=== PATIENT | female | born 1960 | race Caucasian/White ===

== ENCOUNTER → 2018-06-24 13:29 | Outpatient (CLI) | payer MEDICARE, MEDICAID, SELFPAY ==
[2018-06-24 14:44] LABS: INR 2.6 (1.0-3.5); Prothrombin Time 24.5 sec (9.3-10.8)
== END ==
PROVIDERS: Nurse Practitioner Gerontology; PCP Family Medicine; Visit Provider Family Medicine
DX: I26.99 Other pulmonary embolism without acute cor pulmonale (principal); Z79.01 Long term (current) use of anticoagulants
CPT/HCPCS: 36415; 85610

== ENCOUNTER 2018-07-25 13:48 | Outpatient (CLI) | payer MEDICARE, MEDICAID, SELFPAY ==
[2018-07-25 14:31] LABS: INR 2.8 (1.0-3.5); Prothrombin Time 26.4 sec (9.3-10.8)
== END 2018-07-25 14:08 ==
PROVIDERS: PCP Family Medicine; Visit Provider Family Medicine
DX: I26.99 Other pulmonary embolism without acute cor pulmonale (principal); Z79.01 Long term (current) use of anticoagulants
CPT/HCPCS: 36415; 85610

== ENCOUNTER 2018-08-21 12:42 | Outpatient (REF) | payer MEDICARE, MEDICAID, SELFPAY ==
--- NOTE | 2018-08-21 10:55 | PAPFT_PTH ---
PATIENT: Julia Barron LOC: [facility] U#:[id number] AGE/SX: 57/F ROOM: RE08/21/[address]: Joaquin Kenney MD : 1960 BED: DIS: 08/21/2018 SPEC #: [id number] RECD: 08/21/18 12:57 STATUS: YASMEEN REQ #: [id number] PERRI: 08/21/18 10:[address]: Joaquin Kenney DEPT: [facility] Cytology RECD BY: Nelida Encinas Tissues: 1 - CX/ENDOCX FOR PAP SMEARS Procedures: PAP THIN PREP/UVM Screening Comments: [id number]
[2018-08-21 13:22] LABS: Bilirubin Negative (Negative); Blood Trace-intact (Negative); Clarity Clear; Glucose Negative (Negative); Ketones Negative (Negative); Leukocyte Esterase Negative (Negative); Nitrite Negative (Negative); Urobilinogen 0.2 EU/dL (Up TO 0.2); pH 6.5 (5-8)
[2018-08-21 13:33] LABS: Epithelial Cells Rare HPF (Negative); WBC 0-2 HPF (0-5)
[2018-08-21 13:34] LABS: Bacteria Negative HPF (Negative); C & S Indicated? No; Casts Negative LPF (Negative); Crystals Negative HPF (Negative); Mucus Negative (Negative)
== END 2018-08-21 13:02 ==
LOC: LBN 12:42
PROVIDERS: PCP Family Medicine; Visit Provider Family Medicine
DX: Z87.448 Personal history of other diseases of urinary system (principal); N89.8 Other specified noninflammatory disorders of vagina; Z12.4 Encounter for screening for malignant neoplasm of cervix
CPT/HCPCS: 88142; 81003; 81015; 87480; 87510; 87660

== ENCOUNTER 2018-08-22 08:12 | Outpatient (CLI) | payer MEDICARE, MEDICAID, SELFPAY ==
[2018-08-22 08:39] LABS: Absolute Basophil Count 0.03 k/cumm (0.0-0.2); Absolute Eosinophil Count 0.08 k/cumm (0.0-0.7); Absolute Lymphocyte Count 0.96 k/cumm (1.2-3.4); Absolute Monocyte Count 0.38 k/cumm (0.11-0.7); Absolute Neutrophil Count 4.27 k/cumm (1.2-6.7); Basophils % 0.5; Eosinophils % 1.4; HCT 37.7 % (36.0-46.0); HGB 12.5 g/dL (12.0-15.5); Lymphocytes % 16.8; Mean Corp. HGB Concentration 33.2 g/dL (32.0-36.0); Mean Corpuscular Hemoglobin 29.8 pg (27.0-33.0); Mean Platelet Volume 9.3 fL (8.0-11.0); Monocytes % 6.6; Neutrophils % 74.7; Platelet Count 234 x1000/uL (130-400); RBC 4.19 m/cumm (4.00-5.20); RBC Distribution Width 14.1 % (11.7-14.6); White Blood Cell Count 5.72 k/cumm (4.4-10.8)
[2018-08-22 09:02] LABS: INR 1.9 (1.0-3.5); Prothrombin Time 18.3 sec (9.3-10.8)
[2018-08-22 09:44] LABS: ALT 24 U/L (12-78); AST 13 U/L (15-37); Albumin 3.2 g/dL (3.4-5.0); Alkaline Phosphatase 94 U/L (46-116); Anion Gap 8.7 mmol/L (3-11); BUN 13 mg/dL (7-18); Bilirubin, Total 0.3 mg/dL (0.2-1.0); CO2 27.3 mmol/L (21.0-32.0); CREATININE 0.88 mg/dL (0.55-1.02); Calcium 8.3 mg/dL (8.5-10.1); Chloride 106 mmol/L (98-107); Glucose 96 mg/dL (70-100); Potassium 3.8 mmol/L (3.5-5.1); Sodium 142 mmol/L (136-145); TSH 2.97 uIU/mL (0.358-3.74); Total Protein 6.2 g/dL (6.4-8.2)
[2018-08-23 11:10] LABS: HIV-1/2 Ag & Ab Screen Negative (NEGAT)
== END 2018-08-22 08:32 ==
PROVIDERS: PCP Family Medicine; Visit Provider Family Medicine
DX: G25.0 Essential tremor; I26.99 Other pulmonary embolism without acute cor pulmonale; Z79.01 Long term (current) use of anticoagulants; I10 Essential (primary) hypertension; Z91.038 Other insect allergy status; Z20.6 Contact with and (suspected) exposure to human immunodeficiency virus [HIV]
CPT/HCPCS: 36415; 80053; 87389; 84443; 85025; 85610

== ENCOUNTER 2018-09-23 12:16 | Emergency (ER) | payer MEDICARE, MEDICAID, SELFPAY ==
[2018-09-23] VITALS (22 sets, daily range): BP systolic 121–148; BP diastolic 80–98; PULSE 64–79; RESP 13–18; TEMP 36.4; O2SAT 97–100
--- NOTE | 2018-09-23 13:59 | DI.CT_ITS ---
SYMPTOM/DIAGNOSIS: CHEST PAIN CT CHEST: CT angiography was performed with multi slice acquisition and multi planar and 3D reconstruction. CT scan of the chest was performed according to the pulmonary embolus protocol. FINDINGS: There is no evidence of a pulmonary embolus. The thoracic aorta is intact. No evidence of aneurysm or dissection of the thoracic aorta is noted. Heart size is within normal limits. No significant pericardial effusion is seen. No findings to suggest right ventricular dysfunction are present. No significant mediastinal adenopathy, pleural effusion or pneumothorax is identified. No focal consolidating infiltrates are seen in the lungs. Emphysematous changes are present. There is again seen a cyst in the liver which appears stable compared to the CT scan of the abdomen and pelvis from 03/15/10. The bones are intact. IMPRESSION: No acute pulmonary process. No evidence of a pulmonary embolus, thoracic or aortic dissection or aneurysm. The findings were discussed with the Emergency Department on the date of the examination.
[2018-09-23 14:14] LABS: Abs Immature Grans 0.01 k/cumm (0.0-0.09); Absolute Basophil Count 0.03 k/cumm (0.0-0.2); Absolute Eosinophil Count 0.14 k/cumm (0.0-0.7); Absolute Lymphocyte Count 1.25 k/cumm (1.2-3.4); Absolute Neutrophil Count 3.07 k/cumm (1.2-6.7); Basophils % 0.6; Eosinophils % 2.9; HCT 41.3 % (36.0-46.0); HGB 13.7 g/dL (12.0-15.5); Immature Grans % 0.2; Mean Corp. HGB Concentration 33.2 g/dL (32.0-36.0); Mean Corpuscular Hemoglobin 29.9 pg (27.0-33.0); Mean Corpuscular Volume 90.2 fL (80-95); Mean Platelet Volume 9.8 fL (8.0-11.0); Monocytes % 6.3; Platelet Count 279 x1000/uL (130-400); RBC 4.58 m/cumm (4.00-5.20); RBC Distribution Width 14.1 % (11.7-14.6)
[2018-09-23 14:33] LABS: INR 1.9 (1.0-3.5); PTT Activated 35.3 sec (21.0-31.4); Prothrombin Time 18.3 sec (9.3-10.8)
[2018-09-23 14:39] LABS: ALT 24 U/L (12-78); AST 16 U/L (15-37); Albumin 3.5 g/dL (3.4-5.0); Alkaline Phosphatase 86 U/L (46-116); BUN 12 mg/dL (7-18); Bilirubin, Total 0.4 mg/dL (0.2-1.0); CREATININE 0.79 mg/dL (0.55-1.02); Calcium 8.7 mg/dL (8.5-10.1); Chloride 103 mmol/L (98-107); Glucose 96 mg/dL (70-100); NT-proBNP 425 pg/mL; Potassium 3.2 mmol/L (3.5-5.1); Sodium 141 mmol/L (136-145); Total Protein 7.2 g/dL (6.4-8.2)
[2018-09-23 14:46] LABS: Troponin I < 0.02 ng/mL (0.00-0.06)
[2018-09-23] MEDS: Omnipaque 350 MG/ML 100 ML BTL IJ (15:17)
--- NOTE | 2018-09-23 16:13 | ED.GENADUL_ITS ---
Discharge Plan Disposition Patient Disposition: HOME Condition: Stable Discharge Details Chief Complaint: Chest Pain Clinical Impression: Chest pain Primary Care Provider: Joaquin Kenney ED Provider: Nitesh Bueno Home Meds and New Rx's Prescriptions: Continue sildenafil 25 mg tablet 25 mg PO TID RF: 0 Ca cmb no.1-vit [id number]-[id number]-B12 [Vitamin D3 (calcium cit-phos)] 1 EACH tablet 1 tab PO DAILY RF: 0 albuterol sulfate [ProAir HFA] 8.5 GM HFA aerosol inhaler 2 puff Inhalation Q4H PRN Qty: 3 RF: 4 levocetirizine 5 MG tablet 5 mg PO DAILY Qty: 30 RF: 11 cyclobenzaprine 5 MG tablet 5 mg PO BID PRNQty: 30 RF: 0 letrozole [Femara] 2.5 MG tablet 2.5 mg PO DAILY RF: 0 fexofenadine [Allergy Relief (fexofenadine)] 60 MG tablet 60 mg PO DAILY RF: 0 propranolol 10 MG tablet 10 mg PO BID Qty: 180 RF: 3 simvastatin [Zocor] 20 MG tablet 20 mg PO HS Qty: 90 RF: 4 cyanocobalamin (vitamin B-12) 1,000 MCG/1 ML solution 1 ml IM Q 3WEEK Qty: 1 RF: 4 fluticasone [Flovent HFA] 12 GM HFA aerosol inhaler 2 puff Inhalation BID Qty: 3 RF: 4 levothyroxine 50 MCG tablet 50 mcg PO DAILY Qty: 90 RF: 4 syringe with needle [Easy Touch] 1 EACH syringe 1 syringe IM Q3WK Qty: 20 RF: 0 nicotine (polacrilex) 4 MG lozenge 4 mg PO q2-4 hour Qty: 1 RF: 2 epinephrine 0.3 MG/0.3 ML auto-injector 0.3 mg IM ONCE PRN 1 Days Qty: 2 RF: 3 warfarin 2.5 MG tablet PO DIRECTED Qty: 180 RF: 4 esomeprazole magnesium 40 MG capsule,delayed release(DR/EC) 40 mg PO DAILY Qty: 90 RF: 3 lisinopril 10 MG tablet 10 mg PO DAILY Qty: 90 RF: 3 duloxetine [Cymbalta] 60 mg capsule,delayed release(DR/EC) 60 mg PO DAILY Qty: 90 RF: 4 trazodone 100 mg tablet 50 - 100 mg PO HS Qty: 90 RF: 4 loratadine 10 mg Tablet 10 mg PO DAILY PRNRF: 0 Discharge Instructions Instructions: Chest Pain (ED) Additional Instructions: You should take your warfarin 7.5 mg on Sunday and and otherwise 5 mg daily on all the other days of the week. You should follow-up with your primary care provider for reassessment in 1 week. Feel free to return to the emergency department for any new or significant worsening of your symptoms. Referrals: Joaquin Kenney [Primary Care Provider] - 1 week (Call the office tomorrow for arrangement of your follow-up appointment) Discharge Data Discharge Date/Time-TO BE ENTERED AT DEPARTURE: 09/23/18 16:27 Medical Decision Making Patient presenting to the emergency department for chief complaint of chest pain. Patient states this happened on Sunday while she was at a nail salon with her family. She states that she was not performing any activity and had sudden sharp chest pain that lasted approximately 5 minutes. Evening before patient does state that she felt some palpitations. Patient reports that this was similar in nature to when she had a PE in the past. Patient denies any fever chills, current shortness of breath, and states that she is asymptomatic and has no pain or discomfort at this time and has not had any since the small incident 2 days ago. Physical exam is unremarkable. Given patient's history plan on doing EKG, labs including troponin, and CT scan of the chest given patient's significant history. The patient is asymptomatic I do not feel that any other interventions are needed emergently at this time but will continue to monitor. After review of labs show negative troponin, mildly elevated BNP, and are otherwise nondiagnostic and CT imaging showing no PE patient was reassessed. Patient has no lower extremity edema or tachycardia. Patient remains asymptomatic and has had no new or worsening symptoms. Patient was encouraged to follow-up with her primary care provider in the next couple days for reassessment otherwise I feel that this was atypical chest pain. Of notation was that patient's INR was 1.9 while on warfarin so I did call and speak with her primary care provider in regards to subtherapeutic INR while on warfarin and patient's other symptoms. He recommended that she increase her warfarin to 7.5 2 times weekly otherwise 5 mg on the other days. Patient to have follow -up appointment with their office in 1 week for reassessment. Patient was encouraged to return to the emergency department for any new or significant worsening of symptoms. After discussion of diagnosis and plan of care patient has no further needs, questions, or concerns and states clear understanding to return to the emergency department for any worsening symptoms. HPI General Mode of arrival: ambulatory . Date/Time Provider Initiated Documentation: 09/23/18 13:15 . Limitations to Documentation: no limitations . Information obtained by: patient and RN notes reviewed . History of Present Illness 58 year old F presents to the emergency department with the chief complaint of Chest pain, described as moderate, Quality is described as sharp, and is localized to the chest. Patient started experiencing this day(s) (2) and it has been intermittent and now resolved. No relieving factors improve symptom(s ), No exacerbating factors reported . Patient notes no other symptoms.. Patient did receive the following treatments prior to arrival, none Related Data Home Medications Medication Instructions Recorded Confirmed Ca cmb no.1-vit [id number]-B12 1 tab PO DAILY 03/05/13 09/23/18 [Vitamin D3 (calcium cit-phos)] albuterol sulfate [ProAir HFA] 2 puff INHALATION Q4H PRN #3 02/18/16 09/23/18 inhaler levocetirizine 5 mg PO DAILY #30 tab-cap 03/27/16 09/23/18 cyclobenzaprine 5 mg PO BID PRN #30 tab-cap 06/28/16 09/23/18 letrozole [Femara] 2.5 mg PO DAILY tab-cap 11/17/16 09/23/18 fexofenadine [Allergy Relief 60 mg PO DAILY 01/02/17 09/23/18 (fexofenadine)] cyanocobalamin (vitamin B-12) 1 ml IM Q 3WEEK #1 vial 08/09/17 08/21/18 fluticasone [Flovent HFA] 2 puff INHALATION BID #3 inhaler 08/09/17 09/23/18 propranolol 10 mg PO BID #180 tab-cap 08/09/17 09/23/18 simvastatin [Zocor] 20 mg PO HS #90 tab-cap 08/09/17 09/23/18 levothyroxine 50 mcg PO DAILY #90 tab-cap 08/16/17 09/23/18 syringe with needle [Easy Touch] #20 syringe 01/14/18 08/21/18 nicotine (polacrilex) 4 mg PO q2-4 hour #1 box 02/24/18 08/21/18 epinephrine 0.3 mg IM ONCE PRN 1 Days #2 pen 04/11/18 09/23/18 warfarin 0 PO DIRECTED #180 tab-cap 04/29/18 08/21/18 esomeprazole magnesium 40 mg PO DAILY #90 cap 06/28/18 09/23/18 lisinopril 10 mg PO DAILY #90 tab-cap 06/28/18 09/23/18 sildenafil 25 mg tablet 25 mg PO TID 08/21/18 08/21/18 duloxetine 60 mg capsule,delayed 60 mg PO DAILY #90 tab-cap 08/30/18 09/23/18 release trazodone 100 mg tablet 50 - 100 mg PO HS #90 tab-cap 08/30/18 09/23/18 loratadine 10 mg PO DAILY PRN 09/23/18 09/23/18 Previous Rx's Medication Instructions Recorded cyanocobalamin (vitamin B-12) 1 ml IM Q 3WEEK #1 vial 08/09/17 fluticasone [Flovent HFA] 2 puff INHALATION BID #3 inhaler 08/09/17 propranolol 10 mg PO BID #180 tab-cap 08/09/17 simvastatin [Zocor] 20 mg PO HS #90 tab-cap 08/09/17 levothyroxine 50 mcg PO DAILY #90 tab-cap 08/16/17 syringe with needle [Easy Touch] #20 syringe 01/14/18 nicotine (polacrilex) 4 mg PO q2-4 hour #1 box 02/24/18 epinephrine 0.3 mg IM ONCE PRN 1 Days #2 pen 04/11/18 esomeprazole magnesium 40 mg PO DAILY #90 cap 06/28/18 lisinopril 10 mg PO DAILY #90 tab-cap 06/28/18 duloxetine 60 mg capsule,delayed 60 mg PO DAILY #90 tab-cap 08/30/18 release trazodone 100 mg tablet 50 - 100 mg PO HS #90 tab-cap 08/30/18 Allergies Allergy/AdvReac Type Severity Reaction Status Date / Time nicotine Allergy Severe ITCHING Unverified 11/12/18 12:23 celecoxib Allergy Intermediate FACIAL Unverified 09/23/18 12:23 SWELLING NSAIDS (Non-Steroidal Allergy Intermediate FACIAL Unverified 09/23/18 12:23 Anti-Inflamma SWELLING calcium carbonate Allergy Unknown ITCHING Unverified 09/23/18 12:23 cholecalciferol (vitamin D3) Allergy Unknown ITCHING Unverified 09/23/18 12:23 folic acid Allergy Unknown ITCHING Unverified 09/23/18 12:23 pyridoxine Allergy Unknown ITCHING Unverified 09/23/18 12:23 Sulfa (Sulfonamide Allergy Unknown Unverified 09/23/18 12:23 Antibiotics) tramadol Allergy Unknown Unverified 09/23/18 12:23 amoxicillin trihydrate AdvReac Intermediate Diarrhea Unverified 09/23/18 12:23 [From Augmentin] and stomach pain potassium clavulanate AdvReac Intermediate Diarrhea Unverified 09/23/18 12:23 [From Augmentin] and stomach pain hydrocodone AdvReac Unknown Unverified 09/23/18 12:23 varenicline tartrate AdvReac Unknown Unverified 09/23/18 12:23 [From Chantix] WHITE FACED HORNET Allergy Unknown Uncoded 09/23/18 12:23 General Stated Complaint: Chest Pain YAMEL: 2 Review of Systems Constitutional Denies chills, Denies fever(s) and Denies malaise Cardiovascular Reports as per HPI, Reports chest pain, Denies chest pain with activity, Denies syncope, Denies irregular heart rhythm, Reports palpitations and Denies dyspnea Respiratory Denies dyspnea Gastrointestinal Denies abdominal pain, Denies nausea and Denies vomiting Neurologic Denies syncope Psychiatric Denies anxiety Endocrine Reports palpitations [facility] Family History Mother Heart disease Hyperlipidemia Neoplasm Cerebrovascular accident Father Depression Heart disease Myocardial infarction Sister Neoplasm Brother Drug abuse Depression Grandfather No problems noted. Grandfather No problems noted. Grandmother No problems noted. Grandmother No problems noted. Brother No problems noted. Brother No problems noted. Sister No problems noted. Sister Primary fibromyalgia syndrome Sister Depression Neoplasm Son No problems noted. Daughter No problems noted. Daughter Depression Daughter Depression Social History household members: none current occupational status: disabled pets and animals: No frequency: 3-4 times per week duration: 15-30 minutes/day Smoking/Tobacco Use Status: Current every day tobacco type: cigarettes alcohol intake: never substance use type: does not use sue/restoration: No preference special sue needs: No Surgical History Abdominal hysterectomy Cervical Procedure LEFT HEART CARDIAC CATH (~2008) Oophrectomy, Right PULMONARY PROCEDURES SURGICAL PROCEDURE (01/22/17) Exam Const General: cooperative, healthy appearing, comfortable, no acute distress, not diaphoretic and not ill appearing Nutritional Appearance: average body habitus Orientation: alert, awake and oriented x3 Limitations: mental status not altered Neck Neck: normal visual inspection, full ROM, trachea midline, supple and no anterior neck swelling Thyroid: thyroid normal Carotids: normal carotid upstroke and no bruits Chest Chest: normal inspection of the chest Resp Effort & Inspection: normal respiratory effort and able to speak in complete sentences Auscultation: clear to auscultation bilaterally Cardio Jugular venous pressure: no JVD Palpation: normal PMI Rate: regular rate Rhythm: regular rhythm Heart Sounds: S1 normal, S2 normal, no click, no gallops, no murmurs and no rubs Bruits: no abdominal aortic bruits and no carotid bruits Pulses: radial pulses present bilaterally 2+ GI Inspection: normal to inspection Palpation: soft, no aortic enlargement, no pulsatile masses and nontender Auscultation: normal bowel sounds Skin General skin exam: no rashes or lesions noted Neuro General: alert, awake, oriented x3, tone normal and moves all extremities Course Vital Signs Temperature 36.4 C L 09/23/18 12:20 Pulse 79 09/23/18 12:20 Respiratory Rate 18 09/23/18 12:20 Blood Pressure 148/96 H 09/23/18 12:20 Pulse Oximetry 100 09/23/18 12:20 Temperature 36.4 C L 09/23/18 12:20 Temperature Source Temporal Artery Scan 09/23/18 12:20 Pulse 70 09/23/18 13:46 Pulse 70 09/23/18 13:46 Respiratory Rate 16 09/23/18 13:46 Respiratory Effort Non-Labored 09/23/18 12:50 Respiratory Depth Normal 09/23/18 12:50 Respiratory Pattern Normal 09/23/18 12:50 Blood Pressure 122/85 09/23/18 13:46 Blood Pressure Mean 93 09/23/18 13:46 Blood Pressure Position Sitting 09/23/18 12:20 Pulse Oximetry 98 09/23/18 13:46 Oxygen Delivery Method Room Air 09/23/18 12:20 Oxygen Flow Rate 0 09/23/18 12:20 Pain Level 0 09/23/18 12:50 Lab/Test Results Lab/Test Results: Laboratory Tests Range/Units 09/23/18 09/23/18 09/23/18 12:35 12:35 12:35 WBC (4.4-10.8) k/cumm 4.80 RBC (4.00-5.20) m/cumm 4.58 Hgb (12.0-15.5) g/dL 13.7 Hct (36.0-46.0) % 41.3 MCV (80-95) fL 90.2 MCH (27.0-33.0) pg 29.9 MCHC (32.0-36.0) g/dL 33.2 RDW (11.7-14.6) % 14.1 Plt Count (130-400) x1000/uL 279 MPV (8.0-11.0) fL 9.8 Immature Gran % 0.2 Neutrophils % 64.0 Lymphocytes % 26.0 Monocytes % 6.3 Eosinophils % 2.9 Basophils % 0.6 Absolute Neutrophils (1.2-6.7) k/cumm 3.07 Absolute Lymphocytes (1.2-3.4) k/cumm 1.25 Absolute Monocytes (0.11-0.7) k/cumm 0.30 Absolute Eosinophils (0.0-0.7) k/cumm 0.14 Absolute Basophils (0.0-0.2) k/cumm 0.03 PT (9.3-10.8) sec 18.3 H INR (1.0-3.5) 1.9 APTT (21.0-31.4) sec 35.3 H Sodium (136-145) mmol/L 141 Potassium (3.5-5.1) mmol/L 3.2 L Chloride (98-107) mmol/L 103 Carbon Dioxide (21.0-32.0) mmol/L 29.0 Anion Gap (3-11) mmol/L 9.0 BUN (7-18) mg/dL 12 Creatinine (0.55-1.02) mg/dL 0.79 Estimated GFR/1.73 m2 (mL/min/1.73m2) >= 60.00 Glucose (70-100) mg/dL 96 Calcium (8.5-10.1) mg/dL 8.7 Magnesium (1.8-2.4) mg/dL 2.0 Total Bilirubin (0.2-1.0) mg/dL 0.4 AST (15-37) U/L 16 ALT (12-78) U/L 24 Alkaline Phosphatase (46-116) U/L 86 Troponin I (0.00-0.06) ng/mL < 0.02 NT-Pro-B Natriuret Pep ( - 299) pg/mL 425 H Total Protein (6.4-8.2) g/dL 7.2 Albumin (3.4-5.0) g/dL 3.5
== END 2018-09-23 16:27 | disposition home or self-care (01) ==
PROVIDERS: Emergency Provider Nurse Practitioner Family; PCP Family Medicine
DX: R07.89 Other chest pain (principal); R79.1 Abnormal coagulation profile; T45.516A Underdosing of anticoagulants, initial encounter; Z86.711 Personal history of pulmonary embolism; Z79.01 Long term (current) use of anticoagulants
CPT/HCPCS: 36415; 71275; 80053; 93005; 99285; 83735; 83880; 84484; 85025; 85610; 85730; 93010; 99284; J3490

== ENCOUNTER 2018-09-26 15:49 | Outpatient (REF) | payer MEDICARE, MEDICAID, SELFPAY ==
--- NOTE | 2018-09-26 15:40 | VAG_PTH ---
PATIENT: Julia Barron LOC: [facility] U#:[id number] AGE/SX: 58/F ROOM: RE09/26/[address]: Claudia Taylor MD : 1960 BED: DIS: 09/26/2018 SPEC #: [id number] RECD: 09/26/18 17:21 STATUS: YASMEEN REQ #: [id number] PERRI: 09/26/18 15:[address]: Claudia Taylor DEPT: Surgical Specimen RECD BY: Nelida Encinas ENTERED: 09/26/18 17:22 SP TYPE: VAG OTHR DR: Joaquin Kenney MD Tissues: 1 - VAGINAL BIOPSY Procedures: GROSS AND MICRO LEVEL 4 IMMUNOPEROXIDASE STAIN P16 IPEX Comments: [id number]
== END 2018-09-26 16:09 ==
LOC: LBN 15:49
PROVIDERS: PCP Family Medicine; Visit Provider Obstetrics & Gynecology
DX: N89.1 Moderate vaginal dysplasia (principal); N89.0 Mild vaginal dysplasia; R87.612 Low grade squamous intraepithelial lesion on cytologic smear of cervix (LGSIL)
CPT/HCPCS: 88305; 88342; 88361

== ENCOUNTER 2018-10-02 12:26 | Outpatient (CLI) | payer MEDICARE, MEDICAID, SELFPAY ==
[2018-10-02 12:58] LABS: INR 2.6 (1.0-3.5); Prothrombin Time 24.6 sec (9.3-10.8)
== END 2018-10-02 12:46 ==
PROVIDERS: PCP Family Medicine; Visit Provider Family Medicine
DX: I26.99 Other pulmonary embolism without acute cor pulmonale (principal); Z79.01 Long term (current) use of anticoagulants
CPT/HCPCS: 36415; 85610

== ENCOUNTER 2018-11-21 11:35 | Outpatient (CLI) | payer MEDICARE, MEDICAID, SELFPAY ==
[2018-11-21 12:39] LABS: INR 2.5 (0.9-1.1); Prothrombin Time 25.5 sec (9.3-11.0)
== END 2018-11-21 11:55 ==
PROVIDERS: PCP Family Medicine; Visit Provider Family Medicine
DX: I26.99 Other pulmonary embolism without acute cor pulmonale (principal); Z79.01 Long term (current) use of anticoagulants
CPT/HCPCS: 36415; 85610

== ENCOUNTER 2019-01-01 11:52 | Outpatient (CLI) | payer MEDICARE, MEDICAID, SELFPAY ==
[2019-01-01 12:36] LABS: INR 3.1 (0.9-1.1); Prothrombin Time 31.4 sec (9.3-11.0)
== END 2019-01-01 12:12 ==
PROVIDERS: PCP Family Medicine; Visit Provider Family Medicine
DX: I26.99 Other pulmonary embolism without acute cor pulmonale (principal); Z79.01 Long term (current) use of anticoagulants
CPT/HCPCS: 36415; 85610

== ENCOUNTER 2019-01-16 10:09 | Outpatient (CLI) | payer MEDICARE, MEDICAID, SELFPAY ==
[2019-01-16 11:33] LABS: INR 2.9 (0.9-1.1); Prothrombin Time 29.1 sec (9.3-11.0)
== END 2019-01-16 10:29 ==
PROVIDERS: PCP Family Medicine; Visit Provider Family Medicine
DX: I26.99 Other pulmonary embolism without acute cor pulmonale (principal); Z79.01 Long term (current) use of anticoagulants
CPT/HCPCS: 36415; 85610

== ENCOUNTER 2019-02-08 13:49 | Emergency (ER) | payer MEDICARE, MEDICAID, SELFPAY ==
[2019-02-08] VITALS (15 sets, daily range): BP systolic 137–160; BP diastolic 91–114; PULSE 60–82; RESP 10–34; TEMP 37.2; O2SAT 95–99
--- NOTE | 2019-02-08 15:15 | DI.COMBO_ITS ---
SYMPTOM/DIAGNOSIS: HYPERTENSION, HEADACHE CRANIAL CT (WITHOUT CONTRAST): A noncontrast cranial CT was performed. The ventricular system is normal in appearance. There is no evidence of an intracranial mass lesion. There is no evidence of a subdural or epidural hematoma. No focal areas of decreased attenuation are seen. CONCLUSION: Normal noncontrast Cranial CT. PA AND LATERAL CHEST: The heart is not enlarged. There is a median sternotomy. There is a question of faint opacity in the right base, the possibility of consolidation is raised. Question minimal left basilar infiltrate as well. Upper lung zones appear clear. CONCLUSION: Question of minimal bibasilar infiltrates. Clinical correlation requested regarding the possibility of pneumonia. Appropriate follow up studies requested.
--- NOTE | 2019-02-08 15:49 | ED.GENADUL_ITS ---
Discharge Plan Disposition Patient Disposition: HOME Condition: Stable Discharge Details Chief Complaint: GenMedical Clinical Impression: Hypertension, Pneumonia Primary Care Provider: Joaquin Kenney ED Provider: Shirley Gordon Home Meds and New Rx's Prescriptions: New doxycycline hyclate 100 mg tablet 100 mg PO BID 5 Days Qty: 10 RF: 0 Continued cromolyn [Nasalcrom] 5.2 mg/spray (4 %) spray,non-aerosol 1 spray ESTER TID Qty: 26 RF: 11 sildenafil 25 mg tablet 25 mg PO TID RF: 0 ProAir HFA 8.5 GM HFA aerosol inhaler 2 puff Inhalation Q4H PRN Qty: 3 RF: 4 levocetirizine 5 MG tablet 5 mg PO DAILY Qty: 30 RF: 11 cyclobenzaprine 5 MG tablet 5 mg PO BID PRNQty: 30 RF: 0 letrozole [Femara] 2.5 MG tablet 2.5 mg PO DAILY RF: 0 fexofenadine [Allergy Relief (fexofenadine)] 60 MG tablet 60 mg PO DAILY RF: 0 Flovent HFA 12 GM HFA aerosol inhaler 2 puff Inhalation BID Qty: 3 RF: 4 epinephrine 0.3 MG/0.3 ML auto-injector 0.3 mg IM ONCE PRN 1 Days Qty: 2 RF: 3 warfarin 2.5 MG tablet PO DIRECTED Qty: 180 RF: 4 esomeprazole magnesium 40 MG capsule,delayed release(DR/EC) 40 mg PO DAILY Qty: 90 RF: 3 duloxetine [Cymbalta] 60 mg capsule,delayed release(DR/EC) 60 mg PO DAILY Qty: 90 RF: 4 trazodone 100 mg tablet 50 - 100 mg PO HS Qty: 90 RF: 4 levothyroxine 50 mcg tablet 50 mcg PO DAILY Qty: 90 RF: 4 cyanocobalamin (vitamin B-12) 1,000 mcg/mL solution 1,000 mcg IM Q 3WEEK Qty: 1 RF: 11 simvastatin [Zocor] 20 mg tablet 20 mg PO HS Qty: 90 RF: 4 propranolol 10 mg tablet 10 mg PO BID Qty: 180 RF: 3 lisinopril 20 mg tablet 20 mg PO DAILY Qty: 90 RF: 3 Easy Touch 3 mL 20 gauge x 1 syringe 1 syringe IM Q3WK Qty: 20 RF: 3 loratadine 10 mg Tablet 10 mg PO DAILY PRNRF: 0 Discharge Instructions Instructions: Hypertension (ED), Pneumonia (ED) Additional Instructions: Use the albuterol inhaler as needed and directed for any shortness of breath or wheezing. Take the antibiotics until finished. Take your regular medications as directed and continue to monitor blood pressure. Drink plenty of fluids. Call your primary care doctor Sunday morning to schedule a follow-up appointment for reevaluation. Return immediately to the emergency department with any worsening or new concerning symptoms. Discharge Data Discharge Physician: Shirley Gordon Medical Decision Making 58-year-old female with a history of hypertension, pulmonary hypertension, PE on Coumadin who presents with complaint of high blood pressure at home today. BP at home today 173/104. She is unsure of her baseline blood pressure. She did not complain of this initially but upon asking she did also admit to fatigue, headache, intermittent shortness of breath, cough, and mild tingling chest pain today. She denies any chest pain at present. Patient is a smoker. Blood pressure on arrival to ED 156/108. Remainder vitals within normal limits. Patient appears nontoxic and in no acute distress. Normal ENT exam. Lungs clear to auscultation. Abdomen soft and nontender. No lower extremity edema. No focal deficits. Differential diagnosis includes pneumonia, TN, CVA, electrolyte abnormality, UTI, acute kidney injury, dehydration. Denies any sudden onset or thunderclap headache so not consistent with subarachnoid hemorrhage. No tachycardia, hypoxia, and she denies any shortness of breath or chest pain at this time and she is taking her Coumadin as directed so doubt PE. We will continue to monitor patient's blood pressure. Will place an IV, check labs, urinalysis, chest x- ray, EKG, CT head. Will give a dose of meclizine. 1700 --labs and imaging reviewed. Normal white blood cell count, electrolytes, negative troponin. INR mildly supratherapeutic at 3.3. Urinalysis unremarkable. CT head negative. Chest x-ray notes a questionable right base pneumonia. On reassessment patient still complaining of some mild headache. Will give a dose of Tylenol as well as bolus IV fluids and reassess. Will also give a dose of doxycycline for pneumonia. 182 --patient feels much better and is requesting to go home. She denies any headache at this time. BP 158/97. We will send home with an albuterol inhaler as well as a prescription for doxycycline. She is instructed to call her primary care doctor on Sunday morning to schedule follow-up appointment for reevaluation. She is instructed return here at any time if worse. Imaging Data Radiologic Study: Radiologist's impression: CT Head Without Contrast EXAM DATE/TIME: 02/08/2019 3:16 PM FINDINGS: Brain: No acute intracranial hemorrhage. There is mild diffuse heterogeneity of the white matter attenuation, consistent with chronic white matter ischemic changes. Ventricles: Normal. No ventriculomegaly. Bones/joints: Unremarkable. No acute fracture. Sinuses: Visualized sinuses are unremarkable. No acute sinusitis. Mastoid air cells: Visualized mastoid air cells are unremarkable. No mastoid effusion. Soft tissues: Unremarkable. IMPRESSION: No acute intracranial hemorrhage. XR Chest, 2 Views EXAM DATE/TIME: 02/08/2019 3:37 PM FINDINGS: Lungs: Hyperexpanded lung rivers consistent with COPD Mild opacity in the right base may represent atelectasis or pneumonia. Pleural space: Unremarkable. No pleural effusion. No pneumothorax. Heart/Mediastinum: Unremarkable. No cardiomegaly. Bones/joints: Status post median sternotomy IMPRESSION: Mild opacity in the right base may represent atelectasis or pneumonia. Hyperexpanded lung rivers consistent with COPD Lab Data Lab results reviewed: Yes I reviewed the patient's lab results. ECG Data Attestation: I personally reviewed and interpreted this ECG (s) as follows: Interpretation: Rate of 67, sinus, T wave inversion in V2 and V3 which has been seen in previous EKGs. No acute ST elevation or depression. QTc 433. QRS 104. HPI General Mode of arrival: ambulatory . Date/Time Provider Initiated Documentation: 02/08/19 15:12 . Limitations to Documentation: no limitations . Information obtained by: patient . HPI Narrative: Patient is a 58-year-old female who presents the ED with complaint of high blood pressure today. She states she is unsure of her normal blood pressure but states she has been feeling more fatigued and intermittent headaches over the past few days, so she checked her blood pressure today and it was 173/104. She states her headaches have been on the top of her head and dull and heavy starting gradually. States her headache is currently 3/10. She does admit to intermittent shortness of breath with exertion over the past few weeks. She does also admit to dizziness with walking which is worse with head movement over the past few days. She does also admit to intermittent tingling crampy pain in her chest today but denies any at present. She denies any known fever, vision changes, nausea, vomiting. She states she has been eating and drinking normally. Related Data Home Medications Medication Instructions Recorded Confirmed ProAir HFA 2 puff INHALATION Q4H PRN #3 02/18/16 11/18/18 inhaler levocetirizine 5 mg PO DAILY #30 tab-cap 03/27/16 11/18/18 cyclobenzaprine 5 mg PO BID PRN #30 tab-cap 06/28/16 11/18/18 letrozole [Femara] 2.5 mg PO DAILY tab-cap 11/17/16 11/18/18 fexofenadine [Allergy Relief 60 mg PO DAILY 01/02/17 11/18/18 (fexofenadine)] Flovent HFA 2 puff INHALATION BID #3 inhaler 08/09/17 11/18/18 epinephrine 0.3 mg IM ONCE PRN 1 Days #2 pen 04/11/18 11/18/18 warfarin 0 PO DIRECTED #180 tab-cap 04/29/18 11/18/18 esomeprazole magnesium 40 mg PO DAILY #90 cap 06/28/18 11/18/18 sildenafil 25 mg tablet 25 mg PO TID 08/21/18 11/18/18 duloxetine 60 mg capsule,delayed 60 mg PO DAILY #90 tab-cap 08/30/18 11/18/18 release trazodone 100 mg tablet 50 - 100 mg PO HS #90 tab-cap 08/30/18 11/18/18 loratadine 10 mg PO DAILY PRN 09/23/18 11/18/18 cyanocobalamin (vit B-12) 1,000 1,000 mcg IM Q 3WEEK #1 vial 10/11/18 11/18/18 mcg/mL injection solution levothyroxine 50 mcg tablet 50 mcg PO DAILY #90 tab-cap 10/11/18 11/18/18 simvastatin 20 mg tablet 20 mg PO HS #90 tab-cap 10/28/18 11/18/18 propranolol 10 mg tablet 10 mg PO BID #180 tab-cap 11/13/18 11/18/18 cromolyn 5.2 mg/spray (4 %) nasal 1 spray ESTER TID #26 ml 11/18/18 11/18/18 spray lisinopril 20 mg tablet 20 mg PO DAILY #90 tab 12/04/18 syringe with needle 3 mL 20 gauge #20 syringe 01/24/19 x 1 doxycycline hyclate 100 mg PO BID 5 Days #10 tab 02/08/19 Previous Rx's Medication Instructions Recorded Flovent HFA 2 puff INHALATION BID #3 inhaler 08/09/17 epinephrine 0.3 mg IM ONCE PRN 1 Days #2 pen 04/11/18 esomeprazole magnesium 40 mg PO DAILY #90 cap 06/28/18 duloxetine 60 mg capsule,delayed 60 mg PO DAILY #90 tab-cap 08/30/18 release trazodone 100 mg tablet 50 - 100 mg PO HS #90 tab-cap 08/30/18 cyanocobalamin (vit B-12) 1,000 1,000 mcg IM Q 3WEEK #1 vial 10/11/18 mcg/mL injection solution levothyroxine 50 mcg tablet 50 mcg PO DAILY #90 tab-cap 10/11/18 simvastatin 20 mg tablet 20 mg PO HS #90 tab-cap 10/28/18 propranolol 10 mg tablet 10 mg PO BID #180 tab-cap 11/13/18 cromolyn 5.2 mg/spray (4 %) nasal 1 spray ESTER TID #26 ml 11/18/18 spray lisinopril 20 mg tablet 20 mg PO DAILY #90 tab 12/04/18 syringe with needle 3 mL 20 gauge #20 syringe 01/24/19 x 1 doxycycline hyclate 100 mg PO BID 5 Days #10 tab 02/08/19 Allergies Allergy/AdvReac Type Severity Reaction Status Date / Time nicotine Allergy Severe ITCHING Unverified 02/08/19 14:08 celecoxib Allergy Intermediate FACIAL Unverified 02/08/19 14:08 SWELLING NSAIDS (Non-Steroidal Allergy Intermediate FACIAL Unverified 02/08/19 14:08 Anti-Inflamma SWELLING calcium carbonate Allergy Unknown ITCHING Unverified 02/08/19 14:08 cholecalciferol (vitamin D3) Allergy Unknown ITCHING Unverified 02/08/19 14:08 folic acid Allergy Unknown ITCHING Unverified 02/08/19 14:08 pyridoxine Allergy Unknown ITCHING Unverified 02/08/19 14:08 Sulfa (Sulfonamide Allergy Unknown Unverified 02/08/19 14:08 Antibiotics) tramadol Allergy Unknown Unverified 02/08/19 14:08 amoxicillin trihydrate AdvReac Intermediate Diarrhea Unverified 02/08/19 14:08 [From Augmentin] and stomach pain potassium clavulanate AdvReac Intermediate Diarrhea Unverified 02/08/19 14:08 [From Augmentin] and stomach pain hydrocodone AdvReac Unknown Unverified 02/08/19 14:08 varenicline tartrate AdvReac Unknown Unverified 02/08/19 14:08 [From Chantix] WHITE FACED HORNET Allergy Unknown Uncoded 02/08/19 14:08 General Stated Complaint: GenMedical YAMEL: 4 Review of Systems Review of Systems All systems reviewed & are unremarkable except as noted in HPI and below Constitutional Reports as per HPI, Denies chills, Denies fever(s) and Reports headache(s) Eyes Denies blurry vision ENT Reports dizziness, Reports headache(s), Denies sore throat and Denies throat swelling Cardiovascular Reports chest pain and Reports dyspnea Respiratory Denies cough and Reports dyspnea Gastrointestinal Denies abdominal pain, Denies diarrhea and Denies vomiting Genitourinary Denies hematuria and Denies dysuria Musculoskeletal Denies back pain and Denies numbness Integumentary/Breasts Denies lesions and Denies rash Neurologic Reports dizziness, Reports headache(s), Denies focal weakness and Denies numbness Allergic/Immunologic Denies throat swelling [facility] Medical History Vaginal high risk human papillomavirus (HPV) DNA test positive (Acute 08/01/13) Smoker (Acute) 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 malabsorption with proteinuria (Acute) Pulmonary embolism (Acute 08/15/16) Pulmonary HTN (Acute 10/30/16) Primary fibromyalgia syndrome (Acute) Abnormal mammography (Acute 01/23/14) Lumbago with sciatica, right side (Acute) Invasive ductal carcinoma of left breast (Acute 10/19/16) Hypothyroidism (Acute 08/01/13) Hypertension (Acute 08/15/16) Hyperlipidemia (Acute) Gastro-esophageal reflux disease with esophagitis (Acute) Esophageal reflux (Acute) Diarrhea (Acute 12/10/15) Depressive disorder (Acute) Chronic obstructive lung disease (Acute) Chest pain (Acute) Breast cancer, left (Acute 03/29/17) Benign essential tremor (Acute 06/10/15) Allergy to hornet venom (Acute 04/11/18) Allergic rhinitis (Chronic) Acute otitis externa of right ear (Acute 04/18/16) Abnormal involuntary movement (Acute) Pulmonary embolism (Chronic) Surgical History Hx of hysterectomy for benign disease (Resolved) Abdominal hysterectomy Cervical Procedure LEFT HEART CARDIAC CATH (~2008) Oophrectomy, Right PULMONARY PROCEDURES SURGICAL PROCEDURE (01/22/17) Family History Mother Heart disease Hyperlipidemia Neoplasm Stroke Father Depression Heart disease Myocardial infarction Sister Neoplasm Brother Drug abuse Depression Grandfather No problems noted. Grandfather No problems noted. Grandmother No problems noted. Grandmother No problems noted. Brother No problems noted. Brother No problems noted. Sister No problems noted. Sister Primary fibromyalgia syndrome Sister Depression Neoplasm Son No problems noted. Daughter No problems noted. Daughter Depression Daughter Depression Social History Smoking/Tobacco Use Status: Current every day Tobacco Type: cigarettes Alcohol Intake: never Drug use: Never Substance use type: does not use Household members: none Pets and animals: No Duration: 15-30 minutes/day Frequency: 3-4 times per week Jennie/Yarsani: No preference Special jennie needs: No Do you feel safe at home: Yes Do you feel safe in your relationship?: Yes Exam Const General: cooperative, healthy appearing and no acute distress HENMT Head: normal to inspection Face and sinus: normal facial exam Eyes General: appearance normal, both eyes and all related structures Pupils: PERRL EOM: EOM intact bilaterally Neck Neck: normal visual inspection and No submandibular swelling Lymphatic: no lymphadenopathy noted Chest Chest: normal inspection of the chest and no tenderness Resp Effort & Inspection: normal respiratory effort and able to speak in complete sentences Auscultation: clear to auscultation bilaterally Cardio Rate: regular rate Rhythm: regular rhythm GI Inspection: normal to inspection Palpation: soft, not firm, not rigid and nontender Auscultation: normal bowel sounds Skin General skin exam: no rashes or lesions noted Neuro General: alert, awake, oriented x3, gait normal, moves all extremities, no meningeal signs and no focal motor deficits Cranial Nerves: CN's II-XI intact bilaterally Cognition: normal cognition Speech: speech normal Motor: muscle tone normal throughout and strength 5/5 throughout Sensory Exam: no sensory deficits noted Extrem General: normal to inspection, full ROM and no edema Psych Appearance: grossly normal Mental Status: mental status grossly normal Speech and Movement: speech and movement normal Affect: normal affect Course Vital Signs Temperature 99.0 F 02/08/19 14:06 Pulse 72 02/08/19 14:06 Respiratory Rate 14 02/08/19 14:06 Blood Pressure 156/108 H 02/08/19 14:06 Pulse Oximetry 99 02/08/19 14:06 Temperature 99.0 F 02/08/19 14:06 Temperature Source Skin 02/08/19 14:06 Pulse 72 02/08/19 14:06 Respiratory Rate 14 02/08/19 14:06 Respiratory Effort 02/08/19 14:11 Respiratory Depth Normal 02/08/19 14:11 Blood Pressure 156/108 H 02/08/19 14:06 Blood Pressure Position Sitting 02/08/19 14:06 Pulse Oximetry 99 02/08/19 14:06 Oxygen Delivery Method Room Air 02/08/19 14:06 Oxygen Flow Rate 0 02/08/19 14:06 Pain Level 0 02/08/19 14:06
[2019-02-08 15:59] LABS: Absolute Basophil Count 0.01 k/cumm (0.0-0.2); Absolute Lymphocyte Count 1.23 k/cumm (1.2-3.4); Absolute Monocyte Count 0.35 k/cumm (0.11-0.7); Absolute Neutrophil Count 3.31 k/cumm (1.2-6.7); Basophils % 0.2; HCT 41.2 % (36.0-46.0); HGB 13.9 g/dL (12.0-15.5); Lymphocytes % 24.6; Mean Corp. HGB Concentration 33.7 g/dL (32.0-36.0); Mean Corpuscular Hemoglobin 29.4 pg (27.0-33.0); Mean Corpuscular Volume 87.3 fL (80-95); Neutrophils % 66.2; Platelet Count 259 x1000/uL (130-400); RBC 4.72 m/cumm (4.00-5.20); RBC Distribution Width 14.2 % (11.7-14.6)
--- NOTE | 2019-02-08 15:59 | DI.VRAD_ITS ---
EXAM: CT Head Without Contrast EXAM DATE/TIME: 02/08/2019 3:16 PM CLINICAL HISTORY: 58 years old, female; Signs and symptoms; Other: Headache, hypertension TECHNIQUE: Imaging protocol: Axial computed tomography images of the head/brain without contrast. Coronal and sagittal reformatted images were created and reviewed. COMPARISON: No relevant prior studies available. FINDINGS: Brain: No acute intracranial hemorrhage. There is mild diffuse heterogeneity of the white matter attenuation, consistent with chronic white matter ischemic changes. Ventricles: Normal. No ventriculomegaly. Bones/joints: Unremarkable. No acute fracture. Sinuses: Visualized sinuses are unremarkable. No acute sinusitis. Mastoid air cells: Visualized mastoid air cells are unremarkable. No mastoid effusion. Soft tissues: Unremarkable. IMPRESSION: No acute intracranial hemorrhage. Dictated and Authenticated by: Doug Landa MD. Ordering:VIKKI Watson MD
--- NOTE | 2019-02-08 16:06 | DI.VRAD_ITS ---
EXAM: XR Chest, 2 Views EXAM DATE/TIME: 02/08/2019 3:37 PM CLINICAL HISTORY: 58 years old, female; Signs and symptoms; Other: Hypertension TECHNIQUE: Imaging protocol: XR of the chest, 2 views. COMPARISON: CR CHEST 2 VIEWS PA,LAT 10/26/2016 12:26 PM FINDINGS: Lungs: Hyperexpanded lung rivers consistent with COPD Mild opacity in the right base may represent atelectasis or pneumonia. Pleural space: Unremarkable. No pleural effusion. No pneumothorax. Heart/Mediastinum: Unremarkable. No cardiomegaly. Bones/joints: Status post median sternotomy IMPRESSION: Mild opacity in the right base may represent atelectasis or pneumonia. Hyperexpanded lung rivers consistent with COPD Dictated and Authenticated by: Doug Landa MD. Ordering:VIKKI Watson MD
[2019-02-08 16:20] LABS: ALT 22 U/L (12-78); AST 17 U/L (15-37); Albumin 3.7 g/dL (3.4-5.0); Alkaline Phosphatase 99 U/L (46-116); Anion Gap 10.5 mmol/L (3-11); BUN 6 mg/dL (7-18); Bilirubin, Total 0.5 mg/dL (0.2-1.0); CO2 28.5 mmol/L (21.0-32.0); Calcium 8.7 mg/dL (8.5-10.1); Chloride 102 mmol/L (98-107); Glucose 90 mg/dL (70-100); NT-proBNP 385 pg/mL; Potassium 3.5 mmol/L (3.5-5.1); Sodium 141 mmol/L (136-145); Total Protein 7.3 g/dL (6.4-8.2)
[2019-02-08 16:23] LABS: INR 3.3 (0.9-1.1); PTT Activated 42.8 sec (21.0-31.4); Prothrombin Time 33.6 sec (9.3-11.0); Troponin I < 0.02 ng/mL (0.00-0.06)
[2019-02-08 16:39] LABS: Bilirubin Negative (Negative); Blood Small (Negative); Clarity Clear; Glucose Negative (Negative); Ketones Negative (Negative); Leukocyte Esterase Negative (Negative); Nitrite Negative (Negative); Specific Gravity <= 1.005 (1.005-1.025); Urobilinogen 0.2 EU/dL (Up TO 0.2); pH 5.5 (5-8)
[2019-02-08] MEDS: Meclizine 25 MG TAB PO (16:41)
[2019-02-08 16:50] LABS: Bacteria Negative HPF (Negative); C & S Indicated? No; Casts Negative LPF (Negative); Crystals Negative HPF (Negative); Epithelial Cells Negative HPF (Negative); Mucus Negative (Negative); Other Cells Negative (Negative); RBC 0-2 (0-2); WBC Negative HPF (0-5)
[2019-02-08] MEDS: Normal Saline 250 ML 500 ML IV (17:24)
[2019-02-08] MEDS: Doxycycline Hyclate 100 MG CAP PO ×2 (17:24→18:46)
[2019-02-08] MEDS: Acetaminophen 500 MG TAB 1000 MG PO (17:24)
[2019-02-08] MEDS: Albuterol HFA 8 GM 60 PUFF INH IH (18:46)
== END 2019-02-08 18:42 | disposition home or self-care (01) ==
PROVIDERS: Emergency Provider Physician Assistant; PCP Family Medicine
DX: I10 Essential (primary) hypertension (principal); J18.9 Pneumonia, unspecified organism; Z79.01 Long term (current) use of anticoagulants
CPT/HCPCS: 36415; 80053; 99284; 70450; 71046; 81003; 81015; 83735; 83880; 84484; 85025; 85610; 85730

== ENCOUNTER 2019-02-11 10:45 | Outpatient (CLI) | payer MEDICARE, MEDICAID, SELFPAY ==
[2019-02-11 11:12] LABS: INR 3.3 (0.9-1.1); Prothrombin Time 33.1 sec (9.3-11.0)
== END 2019-02-11 11:05 ==
PROVIDERS: PCP Family Medicine; Visit Provider Family Medicine
DX: I26.99 Other pulmonary embolism without acute cor pulmonale (principal); Z79.01 Long term (current) use of anticoagulants
CPT/HCPCS: 36415; 85610

== ENCOUNTER 2019-02-17 15:30 | Outpatient (CLI) | payer MEDICARE, MEDICAID, SELFPAY ==
--- NOTE | 2019-02-17 15:40 | DI.CT_ITS ---
SYMPTOM/DIAGNOSIS: DYSPNEA, TACHYCARDIA, DIZZINESS, H/O PE, R06.00,R00.0,I26.[address]: CT angiography was performed with multi slice acquisition and multi planar and 3D reconstruction. Comparison is made with 09/23/18. There is no evidence of a pulmonary embolus. There is atherosclerosis of the thoracic aorta but no thoracic aortic aneurysm or dissection is present. Heart size is within normal limits. No significant pericardial effusion is seen. No evidence of right ventricular dysfunction is present. No significant thoracic adenopathy, pleural effusion or pneumothorax is identified. Emphysematous changes are seen in the lungs. There is stable bilateral apical scarring. Dependent atelectatic changes are seen in the lung bases. The tracheobronchial tree is unremarkable. Sternotomy wires are in place. There are degenerative changes seen in the spine. Note is again made of a cyst in the right lobe of the liver, this is unchanged. IMPRESSION: No evidence of a pulmonary embolus, thoracic aortic dissection or aneurysm.
[2019-02-17 16:05] LABS: Abs Immature Grans 0.01 k/cumm (0.0-0.09); Absolute Basophil Count 0.02 k/cumm (0.0-0.2); Absolute Eosinophil Count 0.04 k/cumm (0.0-0.7); Absolute Lymphocyte Count 1.11 k/cumm (1.2-3.4); Absolute Monocyte Count 0.39 k/cumm (0.11-0.7); Absolute Neutrophil Count 4.05 k/cumm (1.2-6.7); Basophils % 0.4; Eosinophils % 0.7; HCT 41.5 % (36.0-46.0); Immature Grans % 0.2; Lymphocytes % 19.8; Mean Corp. HGB Concentration 33.7 g/dL (32.0-36.0); Mean Corpuscular Hemoglobin 29.8 pg (27.0-33.0); Mean Corpuscular Volume 88.3 fL (80-95); Mean Platelet Volume 9.3 fL (8.0-11.0); Monocytes % 6.9; Platelet Count 244 x1000/uL (130-400); RBC Distribution Width 14.2 % (11.7-14.6); White Blood Cell Count 5.62 k/cumm (4.4-10.8)
[2019-02-17 16:32] LABS: ALT 29 U/L (12-78); AST 22 U/L (15-37); Albumin 3.9 g/dL (3.4-5.0); Alkaline Phosphatase 101 U/L (46-116); Anion Gap 11.3 mmol/L (3-11); BUN 8 mg/dL (7-18); Bilirubin, Total 0.5 mg/dL (0.2-1.0); CO2 27.7 mmol/L (21.0-32.0); CREATININE 0.85 mg/dL (0.55-1.02); Calcium 9.3 mg/dL (8.5-10.1); Chloride 101 mmol/L (98-107); Glucose 92 mg/dL (70-100); Potassium 3.7 mmol/L (3.5-5.1); Sodium 140 mmol/L (136-145); Total Protein 7.7 g/dL (6.4-8.2)
[2019-02-17 16:34] LABS: Troponin I < 0.02 ng/mL (0.00-0.06)
[2019-02-17 16:39] LABS: INR 1.9 (0.9-1.1); Prothrombin Time 19.4 sec (9.3-11.0)
[2019-02-17] MEDS: Omnipaque 350 MG/ML 100 ML BTL IJ (17:05)
[2019-02-17] MEDS: Normal Saline Flush 10 ML SYR IVP (17:06)
--- NOTE | 2019-02-17 17:13 | DI.VRAD_ITS ---
EXAM: CT Angiography Chest With Contrast EXAM DATE/TIME: 02/17/2019 5:01 PM CLINICAL HISTORY: 58 years old, female; Signs and symptoms; Other: Dyspnea, tachycardia, dizziness. H/o pe TECHNIQUE: Imaging protocol: Axial computed tomographic angiography images of the chest with intravenous contrast using CT angiography protocol. Coronal and sagittal reformatted images were created and reviewed. 3D rendering: MIP reconstructed images were created and reviewed. Radiation optimization: All CT scans at this facility use at least one of these dose optimization techniques: automated exposure control; mA and/or kV adjustment per patient size (includes targeted exams where dose is matched to clinical indication); or iterative reconstruction. Contrast material: Omnipaque 350 Contrast volume: 100 ml Contrast route: IV COMPARISON: CT chest PE CTA 09/23/2018 2:52 PM FINDINGS: Pulmonary arteries: No evidence of pulmonary embolus to the segmental level. Aorta: No aneurysm of the aorta. No dissection of the aorta. Lungs: Mild panlobular emphysematous changes. Bullae in the apices. Bibasilar atelectasis Pleural space: Stable pleural plaques in the lateral aspect of the upper lobes Heart: Normal. No cardiomegaly. No pericardial effusion. Liver: 3.8 cm cyst in the right lobe of the liver Lymph nodes: Unremarkable. No enlarged lymph nodes. Bones/joints: Status post median sternotomy Soft tissues: Unremarkable. IMPRESSION: 1. No evidence of pulmonary embolus to the segmental level. 2. No aneurysm of the aorta. 3. No dissection of the aorta. Dictated and Authenticated by: Doug Landa MD. Ordering:TATUM Nuñez MD
== END 2019-02-17 15:50 ==
PROVIDERS: PCP Family Medicine; Visit Provider Family Medicine
DX: R06.00 Dyspnea, unspecified (principal); R00.0 Tachycardia, unspecified; R42 Dizziness and giddiness; Z86.711 Personal history of pulmonary embolism; Z79.01 Long term (current) use of anticoagulants
CPT/HCPCS: 71275; 80053; 84484; 85025; 85610; J3490

== ENCOUNTER 2019-02-26 12:30 | Outpatient (CLI) | payer MEDICARE, MEDICAID, SELFPAY ==
[2019-02-26 12:57] LABS: INR 2.4 (0.9-1.1); Prothrombin Time 23.9 sec (9.3-11.0)
== END 2019-02-26 12:50 ==
PROVIDERS: PCP Family Medicine; Visit Provider Family Medicine
DX: I26.99 Other pulmonary embolism without acute cor pulmonale (principal); Z79.01 Long term (current) use of anticoagulants
CPT/HCPCS: 36415; 85610

== ENCOUNTER 2019-03-21 16:23 | Emergency (ER) | payer MEDICARE, MEDICAID, SELFPAY ==
[2019-03-21 16:26] VITALS: BP 135/96; PULSE 76; RESP 20; TEMP 36.5; O2SAT 98
--- NOTE | 2019-03-21 16:42 | DI.RAD_ITS ---
SYMPTOMS/DIAGNOSIS: SHORTNESS OF BREATH PA AND LATERAL CHEST: Comparison is made with [id number]. Sternal wires are again noted. Clips are seen in the left breast. The lungs show mild upper lobe scarring. No infiltrate, effusion or pulmonary edema is seen. IMPRESSION: No acute abnormality.
[2019-03-21 16:55] VITALS: PULSE 76; RESP 20; O2SAT 98
[2019-03-21] MEDS: methylPREDNISolone SUCC 125 MG VIAL 80 MG IVP (16:55)
[2019-03-21] MEDS: Albuterol 2.5 MG/3 ML INH SOLN VIAL UPD (16:55)
[2019-03-21 17:03] LABS: Abs Immature Grans 0.01 k/cumm (0.0-0.09); Absolute Basophil Count 0.02 k/cumm (0.0-0.2); Absolute Eosinophil Count 0.09 k/cumm (0.0-0.7); Absolute Lymphocyte Count 1.31 k/cumm (1.2-3.4); Absolute Monocyte Count 0.34 k/cumm (0.11-0.7); Absolute Neutrophil Count 2.72 k/cumm (1.2-6.7); Basophils % 0.4; HCT 40.5 % (36.0-46.0); HGB 13.7 g/dL (12.0-15.5); Immature Grans % 0.2; Lymphocytes % 29.2; Mean Corp. HGB Concentration 33.8 g/dL (32.0-36.0); Mean Corpuscular Hemoglobin 29.7 pg (27.0-33.0); Mean Corpuscular Volume 87.9 fL (80-95); Mean Platelet Volume 9.5 fL (8.0-11.0); Monocytes % 7.6; Neutrophils % 60.6; Platelet Count 257 x1000/uL (130-400); RBC 4.61 m/cumm (4.00-5.20); RBC Distribution Width 13.9 % (11.7-14.6); White Blood Cell Count 4.49 k/cumm (4.4-10.8)
[2019-03-21] MEDS: Normal Saline Flush 10 ML SYR IVP (17:07)
--- NOTE | 2019-03-21 17:14 | ED.GENADUL_ITS ---
Discharge Plan Disposition Patient Disposition: HOME Condition: Improving Discharge Details Chief Complaint: RespSymp Clinical Impression: COPD with acute exacerbation Primary Care Provider: Joaquin Kenney ED Provider: Nitesh Bueno Home Meds and New Rx's Prescriptions: New prednisone 50 mg tablet 50 mg PO DAILY Qty: 4 RF: 0 Continued cromolyn [Nasalcrom] 5.2 mg/spray (4 %) spray,non-aerosol 1 spray ESTER TID Qty: 26 RF: 11 sildenafil 25 mg tablet 25 mg PO TID RF: 0 albuterol sulfate [ProAir HFA] 8.5 GM HFA aerosol inhaler 2 puff Inhalation Q4H PRN Qty: 3 RF: 4 cyclobenzaprine 5 MG tablet 5 mg PO BID PRNQty: 30 RF: 0 letrozole [Femara] 2.5 MG tablet 2.5 mg PO DAILY RF: 0 epinephrine 0.3 MG/0.3 ML auto-injector 0.3 mg IM ONCE PRN 1 Days Qty: 2 RF: 3 warfarin 2.5 MG tablet PO DIRECTED Qty: 180 RF: 4 esomeprazole magnesium 40 MG capsule,delayed release(DR/EC) 40 mg PO DAILY Qty: 90 RF: 3 duloxetine [Cymbalta] 60 mg capsule,delayed release(DR/EC) 60 mg PO DAILY Qty: 90 RF: 4 trazodone 100 mg tablet 50 - 100 mg PO HS Qty: 90 RF: 4 levothyroxine 50 mcg tablet 50 mcg PO DAILY Qty: 90 RF: 4 cyanocobalamin (vitamin B-12) 1,000 mcg/mL solution 1,000 mcg IM Q 3WEEK Qty: 1 RF: 11 simvastatin [Zocor] 20 mg tablet 20 mg PO HS Qty: 90 RF: 4 propranolol 10 mg tablet 10 mg PO BID Qty: 180 RF: 3 lisinopril 20 mg tablet 20 mg PO DAILY Qty: 90 RF: 3 Easy Touch 3 mL 20 gauge x 1 syringe 1 syringe IM Q3WK Qty: 20 RF: 3 Discharge Instructions Instructions: COPD (Chronic Obstructive Pulmonary Disease) (ED) Additional Instructions: Return to the emergency department for any worsening of your shortness of breath, fever chills, or productive cough. Otherwise take your normal daily medication as prescribed including using your inhalers on a daily basis. Follow-up with your primary care provider next week for reassessment and take steroids for full course. Referrals: Joaquin Kenney [Primary Care Provider] - 5 days (Please follow-up with your primary care provider for reassessment) Discharge Data Discharge Date/Time-TO BE ENTERED AT DEPARTURE: 03/21/19 20:10 Medical Decision Making Patient presenting to the emergency department for chief complaint of shortness of breath and fatigue. Patient reports pneumonia that she had 3 to 4 weeks ago and received antibiotics but over the past 4 days seems to have had a return of similar symptoms. Patient denies any fever chills, states nightly cough but is dry nonproductive, denies night sweats, states some right-sided chest wall pain that she attributes to her fibromyalgia. Patient is a chronic smoker and has history of PE, pulmonary hypertension, and COPD. Patient states that she has been taking all of her medications as prescribed but has not used her inhaler for this as she has never needed her inhaler for her COPD and states she never uses it. Physical exam is unremarkable and shows a well-appearing patient with no signs of respiratory distress, no tachypnea, not hypoxic, not diaphoretic. Exam shows normal cardiac exam, and clear lung sounds throughout all lung rivers. Plan to check labs , EKG and x-ray imaging. High suspicion for COPD or COPD exacerbation so pending results patient given nebulizer along with steroids. EKG reviewed with Dr. Andersen and shows sinus rhythm, rate of 63, there are T wave inversions noted but show no change since October 2016. Labs were reviewed and show no leukocytosis, nondiagnostic CMP, negative troponin, therapeutic INR. Patient reassessed and states mild improvement after nebulizer. Review of chest x-ray shows atelectasis versus consolidation in the right lower lobe per my interpretation but radiologist states no acute findings. In comparison to previous chest x-ray that was done at last visit with diagnosis of possible pneumonia today's chest x-ray shows very similar findings. Further discussed with patient given symptoms of CT scan without contrast given that she just had a recent chest CT for rule out of PE that showed negative findings and therapeutic INR. Patient was agreeable to receiving further imaging to investigate abnormality that is been present on x-rays in the right lower lung. Chest CT reviewed and radiologist interpretation states no acute findings and chronic findings as seen in the past without interval change. Patient reassessed and remains non-hypoxic, in no acute signs of distress. I am mainly concerned for COPD exacerbation and feel that steroids would most benefit patient. Patient also states that she has not been using any of her inhalers that she is supposed to use for her COPD that I feel may be contributing to her symptoms. Patient was encouraged to use her normally prescribed medication and placed up on prednisone for 5 days. Close return precautions were discussed otherwise I feel the patient should follow-up with her primary care for reassessment next week. Patient was informed to return for any fever chills, productive cough, or worsening of symptoms. After discussion of diagnosis and plan of care patient has no further needs, questions, or concerns and states clear understanding to return to the emergency department for any worsening symptoms. HPI General Mode of arrival: ambulatory . Date/Time Provider Initiated Documentation: 03/21/19 16:24 . Limitations to Documentation: no limitations . Information obtained by: patient and RN notes reviewed . History of Present Illness 58 year old F presents to the emergency department with the chief complaint of Shortness of breath, fatigue, described as mild, with intensity rated at 2. Quality is described as aching, and is localized to the right (Lower chest wall). Patient started experiencing this day(s) (4) No relieving factors improve symptom(s), Other factors that worsen symptoms (Activity) . Patient did receive the following treatments prior to arrival, none Related Data Home Medications Medication Instructions Recorded Confirmed albuterol sulfate [ProAir HFA] 2 puff INHALATION Q4H PRN #3 02/18/16 03/21/19 inhaler cyclobenzaprine 5 mg PO BID PRN #30 tab-cap 06/28/16 03/21/19 letrozole [Femara] 2.5 mg PO DAILY tab-cap 11/17/16 03/21/19 epinephrine 0.3 mg IM ONCE PRN 1 Days #2 pen 04/11/18 03/21/19 warfarin 0 PO DIRECTED #180 tab-cap 04/29/18 02/19/19 esomeprazole magnesium 40 mg PO DAILY #90 cap 06/28/18 03/21/19 sildenafil 25 mg tablet 25 mg PO TID 08/21/18 03/21/19 duloxetine 60 mg capsule,delayed 60 mg PO DAILY #90 tab-cap 10/19/18 05/10/19 release trazodone 100 mg tablet 50 - 100 mg PO HS #90 tab-cap 08/30/18 03/21/19 cyanocobalamin (vit B-12) 1,000 1,000 mcg IM Q 3WEEK #1 vial 10/11/18 03/21/19 mcg/mL injection solution levothyroxine 50 mcg tablet 50 mcg PO DAILY #90 tab-cap 10/11/18 03/21/19 simvastatin 20 mg tablet 20 mg PO HS #90 tab-cap 10/28/18 03/21/19 propranolol 10 mg tablet 10 mg PO BID #180 tab-cap 11/13/18 03/21/19 cromolyn 5.2 mg/spray (4 %) nasal 1 spray ESTER TID #26 ml 11/18/18 03/21/19 spray lisinopril 20 mg tablet 20 mg PO DAILY #90 tab 12/04/18 03/21/19 syringe with needle 3 mL 20 gauge #20 syringe 01/24/19 02/19/19 x 1 prednisone 50 mg PO DAILY #4 tab 03/21/19 Previous Rx's Medication Instructions Recorded epinephrine 0.3 mg IM ONCE PRN 1 Days #2 pen 04/11/18 esomeprazole magnesium 40 mg PO DAILY #90 cap 06/28/18 duloxetine 60 mg capsule,delayed 60 mg PO DAILY #90 tab-cap 08/30/18 release trazodone 100 mg tablet 50 - 100 mg PO HS #90 tab-cap 08/30/18 cyanocobalamin (vit B-12) 1,000 1,000 mcg IM Q 3WEEK #1 vial 10/11/18 mcg/mL injection solution levothyroxine 50 mcg tablet 50 mcg PO DAILY #90 tab-cap 10/11/18 simvastatin 20 mg tablet 20 mg PO HS #90 tab-cap 10/28/18 propranolol 10 mg tablet 10 mg PO BID #180 tab-cap 11/13/18 cromolyn 5.2 mg/spray (4 %) nasal 1 spray ESTER TID #26 ml 11/18/18 spray lisinopril 20 mg tablet 20 mg PO DAILY #90 tab 12/04/18 syringe with needle 3 mL 20 gauge #20 syringe 01/24/19 x 1 prednisone 50 mg PO DAILY #4 tab 03/21/19 Allergies Allergy/AdvReac Type Severity Reaction Status Date / Time nicotine Allergy Severe ITCHING Unverified 03/21/19 16:28 celecoxib Allergy Intermediate FACIAL Unverified 03/21/19 16:28 SWELLING NSAIDS (Non-Steroidal Allergy Intermediate FACIAL Unverified 03/21/19 16:28 Anti-Inflamma SWELLING calcium carbonate Allergy Unknown ITCHING Unverified 03/21/19 16:28 cholecalciferol (vitamin D3) Allergy Unknown ITCHING Unverified 03/21/19 16:28 folic acid Allergy Unknown ITCHING Unverified 03/21/19 16:28 pyridoxine Allergy Unknown ITCHING Unverified 03/21/19 16:28 Sulfa (Sulfonamide Allergy Unknown Unverified 03/21/19 16:28 Antibiotics) tramadol Allergy Unknown Unverified 03/21/19 16:28 amoxicillin trihydrate AdvReac Intermediate Diarrhea Unverified 03/21/19 16:28 [From Augmentin] and stomach pain potassium clavulanate AdvReac Intermediate Diarrhea Unverified 03/21/19 16:28 [From Augmentin] and stomach pain hydrocodone AdvReac Unknown Unverified 03/21/19 16:28 varenicline tartrate AdvReac Unknown Unverified 03/21/19 16:28 [From Chantix] WHITE FACED HORNET Allergy Unknown Uncoded 03/21/19 16:28 General Stated Complaint: RespSymp YAMEL: 3 Review of Systems Constitutional Denies chills, Denies fever(s), Denies headache(s) and Reports malaise ENT Denies headache(s) Cardiovascular Denies chest pain, Denies chest pain with activity, Denies irregular heart rhythm, Denies palpitations, Reports dyspnea and Reports dyspnea on exertion Respiratory Reports cough, Denies hemoptysis, Denies excessive phlegm production, Denies pain on inspiration, Denies pain with cough, Reports dyspnea, Reports dyspnea on exertion, Denies stridor and Denies wheezing Gastrointestinal Denies abdominal pain, Denies nausea and Denies vomiting Neurologic Denies headache(s) Endocrine Denies palpitations Allergic/Immunologic Denies wheezing [facility] Medical History Vaginal high risk human papillomavirus (HPV) DNA test positive (Acute 08/01/13) Smoker (Acute) 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 malabsorption with proteinuria (Acute) Pulmonary embolism (Acute 08/15/16) Pulmonary HTN (Acute 10/30/16) Primary fibromyalgia syndrome (Acute) Abnormal mammography (Acute 01/23/14) Lumbago with sciatica, right side (Acute) Invasive ductal carcinoma of left breast (Acute 10/19/16) Hypothyroidism (Acute 08/01/13) Hypertension (Acute 08/15/16) Hyperlipidemia (Acute) Gastro-esophageal reflux disease with esophagitis (Acute) Esophageal reflux (Acute) Diarrhea (Acute 12/10/15) Depressive disorder (Acute) Chronic obstructive lung disease (Acute) Chest pain (Acute) Breast cancer, left (Acute 03/29/17) Benign essential tremor (Acute 06/10/15) Allergy to hornet venom (Acute 04/11/18) Allergic rhinitis (Chronic) Acute otitis externa of right ear (Acute 04/18/16) Abnormal involuntary movement (Acute) Pulmonary embolism (Chronic) Surgical History Hx of hysterectomy for benign disease (Resolved) Abdominal hysterectomy Cervical Procedure LEFT HEART CARDIAC CATH (~2008) Oophrectomy, Right PULMONARY PROCEDURES SURGICAL PROCEDURE (01/22/17) Family History Mother Heart disease Hyperlipidemia Neoplasm Stroke Father Depression Heart disease Myocardial infarction Sister Neoplasm Brother Drug abuse Depression Grandfather No problems noted. Grandfather No problems noted. Grandmother No problems noted. Grandmother No problems noted. Brother No problems noted. Brother No problems noted. Sister No problems noted. Sister Primary fibromyalgia syndrome Sister Depression Neoplasm Son No problems noted. Daughter No problems noted. Daughter Depression Daughter Depression Social History Smoking/Tobacco Use Status: Current every day Tobacco Type: cigarettes Alcohol Intake: never Drug use: Never Substance use type: does not use Household members: none Pets and animals: No Duration: 15-30 minutes/day Frequency: 3-4 times per week Jennie/Latter-Day: No preference Special jennie needs: No Do you feel safe at home: Yes Do you feel safe in your relationship?: Yes Exam Const General: cooperative, healthy appearing, comfortable, no acute distress, not diaphoretic and not ill appearing Nutritional Appearance: average body habitus Orientation: alert, awake and oriented x3 Limitations: mental status not altered Neck Neck: normal visual inspection, full ROM, trachea midline, supple and no anterior neck swelling Carotids: normal carotid upstroke and no bruits Chest Chest: normal inspection of the chest Resp Effort & Inspection: normal respiratory effort and able to speak in complete sentences Auscultation: clear to auscultation bilaterally Cardio Jugular venous pressure: no JVD Palpation: normal PMI Rate: regular rate Rhythm: regular rhythm Heart Sounds: S1 normal, S2 normal, no click, no gallops, no murmurs and no rubs Bruits: no abdominal aortic bruits and no carotid bruits Pulses: radial pulses present bilaterally 2+ GI Inspection: normal to inspection Palpation: soft, no aortic enlargement, no pulsatile masses and nontender Auscultation: normal bowel sounds Skin General skin exam: no rashes or lesions noted Neuro General: alert, awake, oriented x3, tone normal and moves all extremities Course Vital Signs Temperature 36.5 C 03/21/19 16:26 Pulse 76 03/21/19 16:26 Respiratory Rate 20 03/21/19 16:26 Blood Pressure 135/96 H 03/21/19 16:26 Pulse Oximetry 98 03/21/19 16:26 Temperature 36.5 C 03/21/19 16:26 Temperature Source Temporal Artery Scan 03/21/19 16:26 Pulse 76 03/21/19 16:26 Respiratory Rate 20 03/21/19 16:26 Respiratory Effort Non-Labored 03/21/19 16:29 Respiratory Depth Normal 03/21/19 16:29 Blood Pressure 135/96 H 03/21/19 16:26 Pulse Oximetry 98 03/21/19 16:26 Oxygen Delivery Method Room Air 03/21/19 16:26 Oxygen Flow Rate 0 03/21/19 16:26 Pain Level 4 03/21/19 16:26
[2019-03-21 17:16] LABS: INR 2.3 (0.9-1.1); PTT Activated 33.9 sec (21.0-31.4); Prothrombin Time 23.5 sec (9.3-11.0)
[2019-03-21 17:20] LABS: ALT 25 U/L (12-78); AST 14 U/L (15-37); Albumin 3.7 g/dL (3.4-5.0); Alkaline Phosphatase 85 U/L (46-116); Anion Gap 6.8 mmol/L (3-11); BUN 9 mg/dL (7-18); Bilirubin, Total 0.4 mg/dL (0.2-1.0); CO2 29.2 mmol/L (21.0-32.0); Calcium 8.9 mg/dL (8.5-10.1); Chloride 101 mmol/L (98-107); Glucose 89 mg/dL (70-100); Potassium 3.7 mmol/L (3.5-5.1); Sodium 137 mmol/L (136-145); Total Protein 7.4 g/dL (6.4-8.2)
[2019-03-21 17:21] LABS: Troponin I < 0.02 ng/mL (0.00-0.06)
[2019-03-21 17:27] LABS: TSH (W/Ref FT4) 1.65 uIU/mL (0.358-3.74)
--- NOTE | 2019-03-21 17:56 | DI.VRAD_ITS ---
EXAM: XR Chest, 2 Views EXAM DATE/TIME: 03/21/2019 4:48 PM CLINICAL HISTORY: 58 years old, female; Signs and symptoms; Shortness of breath; Prior surgery; Surgery date: 6+ months TECHNIQUE: Imaging protocol: XR of the chest, 2 views. COMPARISON: CR XR CHEST 2V PA LATERAL 02/08/2019 3:36 PM FINDINGS: Lungs: No acute interstitial or airspace disease. Pleural space: Unremarkable. No pleural effusion. No pneumothorax. Heart/Mediastinum: Stable cardiomediastinal silhouette. Bones/joints: There are sternal wires consistent with previous sternotomy incision. No acute skeletal abnormality. IMPRESSION: Negative for acute thoracic pathology. Dictated and Authenticated by: Emiliano Casanova MD. Ordering:SAKSHI Dowling MD
--- NOTE | 2019-03-21 19:00 | DI.CT_ITS ---
SYMPTOMS/DIAGNOSIS: SHORTNESS OF BREATH CHEST CT: Comparison is made with [id number]. A noncontrast exam was performed. There are again noted to be sternal wires and surgical clips in the left breast. The heart size appears within normal limits. No pleural or pericardial effusions are seen. Emphysematous changes are again demonstrated, greatest in the upper lobes. There is apical scarring which is also appears stable. No infiltrate or pulmonary edema is seen. Mild calcification is seen at the aortic arch. A cyst is noted in the liver. Debris vs small stones are seen in the gallbladder. There is no biliary dilatation. The spleen, adrenals and pancreas as well as kidneys are unremarkable. A portion of the appendix is seen which appears normal. The upper abdominal aorta is normal in diameter. IMPRESSION: Upper lobe emphysematous changes and mild scarring. No acute abnormality.
[2019-03-21 19:27] VITALS: BP 137/100; PULSE 69; RESP 16; TEMP 36.7; O2SAT 95
--- NOTE | 2019-03-21 19:48 | DI.VRAD_ITS ---
EXAM: CT Chest Without Contrast EXAM DATE/TIME: 03/21/2019 7:02 PM CLINICAL HISTORY: 58 years old, female; Signs and symptoms; Shortness of breath; Prior surgery; Surgery date: 6+ months TECHNIQUE: Imaging protocol: Axial computed tomography images of the chest without intravenous contrast. Coronal and sagittal reformatted images were created and reviewed. Radiation optimization: All CT scans at this facility use at least one of these dose optimization techniques: automated exposure control; mA and/or kV adjustment per patient size (includes targeted exams where dose is matched to clinical indication); or iterative reconstruction. COMPARISON: CT CHEST PE CTA 02/17/2019 4:48 PM FINDINGS: Lungs: Stable bilateral apical paraseptal emphysema and mild scarring. Bilateral upper lobe predominant centrilobular emphysema is again appreciated. No acute interstitial or airspace disease. Pleural space: Normal. No pneumothorax. No pleural effusion. Heart: Normal in size and configuration. No pericardial effusion. Pulmonary arteries: Stable 3.2 cm diameter to the main pulmonary artery. Normal course of the pulmonary arteries otherwise. Aorta: The aorta demonstrates mild atherosclerotic calcification. Lymph nodes: No adenopathy. Bones/joints: Stable median sternotomy. No acute skeletal abnormality or aggressive osseous lesion is appreciated. Soft tissues: Stable scarring to the left breast with multiple clips identified. Liver: Stable cyst in the right hepatic lobe. Gallbladder and bile ducts: Question of cholelithiasis. Upper abdomen: No acute findings in the visualized upper abdominal organs. IMPRESSION: 1. No acute findings to explain the patient's shortness of breath. 2. Chronic/stable findings as detailed above. Dictated and Authenticated by: Eimliano Casanova MD. Ordering:SAKSHI Dowling MD
[2019-03-21 20:05] VITALS: BP 137/100; PULSE 69; RESP 16; TEMP 36.7; O2SAT 95
--- NOTE | 2019-03-24 08:45 | CMPROGNOTE_ITS ---
Care Management Progress Note 03/24-INGE Snyder requested assistance with a PCP (amy) f/u this week for complaints of sob/COPD. Referral faxed to [facility] this am.
== END 2019-03-21 20:10 | disposition home or self-care (01) ==
PROVIDERS: Emergency Provider Nurse Practitioner Family; PCP Family Medicine
DX: J44.1 Chronic obstructive pulmonary disease with (acute) exacerbation (principal); F17.210 Nicotine dependence, cigarettes, uncomplicated; Z86.711 Personal history of pulmonary embolism; I10 Essential (primary) hypertension
CPT/HCPCS: 36415; 71250; 80053; 93005; 94640; 96374; 99285; 71046; 84443; 84484; 85025; 85610; 85730; 93010; 99284; J2930; J7613

== ENCOUNTER 2019-04-23 00:15 | Outpatient (CLI) | payer MEDICARE, MEDICAID, SELFPAY ==
--- NOTE | 2019-04-23 13:43 | MERGE_ITS ---
*[facility]* *[facility]* [address] [place] [address] Date of study: 04/23/2019 Transthoracic Echocardiography M-mode, complete 2D, complete spectral Doppler, and color Doppler *STUDY CONCLUSIONS* Summary: 1. Left ventricle: The cavity size was normal. Wall thickness was normal. Systolic function was normal. The estimated ejection fraction was 55-60%. Wall motion was normal; there were no regional wall motion abnormalities. Diastolic parameters were normal. 2. Mitral valve: There was mild regurgitation. 3. Right ventricle: The cavity size was normal. Wall thickness was normal. Systolic function was normal. 4. Pulmonary arteries: Pulmonary systolic pressure was within the normal range, in the range of 30mm Hg to 35mm Hg. 5. Inferior vena cava: The vessel was patent and normal in size. The respirophasic diameter changes were in the normal range (greater than or equal to 50%), consistent with normal central venous pressure. *PATIENT PRESENTATION* Height: 162.6cm ((64in) ) S/D Pressure: 119 / 83 Weight: 88.9kg ((195.6lb) ) BSA: 2.04m^2 Test start time: 01:55 PM. Test stop time: 02:50 PM. PERFORMING Unknown PERFORMING [facility] [employer] SHOVELMAN RT Martin (R)(CT), [facility] ORDERING Joaquin Kenney REFERRING Joaquin Kenney *PROCEDURE DATA* Procedure information: The patient was identified by two identifiers. This study was interpreted by [facility]. Pertinent images and digital data are archived for permanent storage and are available for subsequent review. No prior study was available for comparison. Study status: Routine. Transthoracic echocardiography. M-mode, complete 2D, complete spectral Doppler, and color Doppler. A Transthoracic Echocardiogram was performed. Scanning was performed from the parasternal, apical, subcostal, and suprasternal notch acoustic windows. Images were obtained using an [id number] cardiac ultrasound machine. Image quality was adequate. Study completion: The patient tolerated the procedure well. There were no complications. History: PMH: Pulmonary HTN i27.0. *CARDIAC ANATOMY* Left ventricle: The cavity size was normal. Wall thickness was normal. Systolic function was normal. The estimated ejection fraction was 55-60%. Wall motion was normal; there were no regional wall motion abnormalities. Diastolic parameters were normal. Aortic valve: Trileaflet; normal thickness leaflets. Mobility was not restricted. Doppler: Transvalvular velocity was within the normal range. There was no stenosis. There was no significant regurgitation. VTI ratio of LVOT to aortic valve: 0.83. Valve area (VTI): 2.7cm^2. Indexed valve area (VTI): 1.3cm^2/m^2. Peak velocity ratio of LVOT to aortic valve: 0.82. Valve area (Vmax): 2.7cm^2. Indexed valve area (Vmax): 1.3cm^2/m^2. Mean velocity ratio of LVOT to aortic valve: 0.77. Valve area (Vmean): 2.5cm^2. Indexed valve area (Vmean): 1.2cm^2/m^2. Mean gradient (S): 2.7mm Hg. Peak gradient (S): 4.8mm Hg. Aorta: Aortic root: The aortic root was normal in size. Mitral valve: Mildly calcified annulus. Mobility was not restricted. Doppler: Transvalvular velocity was within the normal range. There was no evidence for stenosis. There was mild regurgitation. Valve area by pressure half-time: 4.1cm^2. Indexed valve area by pressure half-time: 2cm^2/m^2. Peak gradient (D): 3.5mm Hg. Left atrium: The atrium was normal in size. Right ventricle: The cavity size was normal. Wall thickness was normal. Systolic function was normal. Pulmonic valve: Doppler: Transvalvular velocity was within the normal range. There was no evidence for stenosis. There was no significant regurgitation. Peak gradient (S): 1.4mm Hg. Tricuspid valve: Structurally normal valve. Doppler: Transvalvular velocity was within the normal range. There was no evidence for stenosis. There was mild regurgitation. Pulmonary artery: Pulmonary systolic pressure was within the normal range, in the range of 30mm Hg to 35mm Hg. Right atrium: The atrium was normal in size. Pericardium: There was no pericardial effusion. Systemic veins: Inferior vena cava: Well visualized. The vessel was patent and normal in size. The respirophasic diameter changes were in the normal range (greater than or equal to 50%), consistent with normal central venous pressure. Baseline ECG: Sinus bradycardia. Measurements Left ventricle Value Reference LV ID, ED, PLAX 4.5 cm 3.5 - 6.0 LV ID, ES, PLAX 3.0 cm 2.1 - 4.0 LV PW thickness, ED, PLAX 0.9 cm LV end-diastolic volume, 1-p A2C 106 ml LV ejection fraction, 1-p A2C 67 % LV end-diastolic volume, 1-p A4C 79 ml LV ejection fraction, 1-p A4C 52 % LV e', lateral 0.094 m/sec LV E/e', lateral 10 LV e', medial 0.093 m/sec LV E/e', medial 10 LV e', average 0.093 m/sec LV E/e', average 10 Ventricular septum Value Reference IVS thickness, ED, PLAX 1.0 cm LVOT Value Reference LVOT ID, A-P 2.0 cm LVOT area 3.3 cm^2 LVOT peak velocity, S 0.9 m/sec LVOT mean velocity, S 0.6 m/sec LVOT VTI, S 22.5 cm LVOT peak gradient, S 3.2 mm Hg LVOT mean gradient, S 1.7 mm Hg Stroke volume (SV), LVOT DP 73 ml Stroke index (SV/bsa), LVOT DP 36 ml/m^2 Aortic valve Value Reference Aortic valve peak velocity, S 1.1 m/sec Aortic valve mean velocity, S 0.78 m/sec Aortic valve VTI, S 27.0 cm Aortic mean gradient, S 2.7 mm Hg Aortic peak gradient, S 4.8 mm Hg VTI ratio, LVOT/AV 0.83 Aortic valve area, VTI 2.7 cm^2 Velocity ratio, peak, LVOT/AV 0.82 Aortic valve area, peak velocity 2.7 cm^2 Velocity ratio, mean, LVOT/AV 0.77 Aortic valve area, mean velocity 2.5 cm^2 Aortic valve area/bsa, mean velocity 1.2 cm^2/m^2 Aorta Value Reference Aortic root ID, ED 3.0 cm Ascending aorta ID, A-P, S 3.3 cm Left atrium Value Reference LA ID, A-P, ES 2.9 cm LA ID/bsa, A-P 1.4 cm/m^2 <=2.2 LA area, ES, A4C 15.8 cm^2 8.8 - 23.4 LA area, ES, A2C 14 cm^2 LA volume/bsa, ES, 1-p A4C 22 ml/m^2 LA volume, ES, 2-p 35 ml LA volume/bsa, ES, 2-p 17 ml/m^2 LA/aortic root ratio 0.97 Mitral valve Value Reference Mitral E-wave peak velocity 0.94 m/sec Mitral A-wave peak velocity 0.76 m/sec Mitral deceleration time 185 ms 150 - 230 Mitral pressure half-time 54 ms Mitral peak gradient, D 3.5 mm Hg Mitral E/A ratio, peak 1.24 Mitral valve area, PHT, DP 4.1 cm^2 Pulmonary veins Value Reference Pulmonary vein peak velocity, S 0.65 m/sec Pulmonary vein peak velocity, D 0.8 m/sec Pulmonary vein velocity ratio, peak, 0.81 S/D Pulmonary vein A-wave reversal peak 0.52 m/sec velocity Pulmonary vein A-wave reversal 174 ms duration Tricuspid valve Value Reference Tricuspid regurg peak velocity 2.8 m/sec Tricuspid peak RV-RA gradient 31.1 mm Hg Right atrium Value Reference RA area, ES, A4C 18 cm^2 8.3 - 19.5 Pulmonic valve Value Reference Pulmonic peak gradient, S 1.4 mm Hg Legend: (L) and (H) jacqueline values outside specified reference range. I have personally reviewed the images and have reviewed and edited the reported findings. Electronically signed by Juan Ayala 04/23/2019 15:21
[2019-04-23 15:31] LABS: INR 2.5 (0.9-1.1); Prothrombin Time 25.2 sec (9.3-11.0)
== END 2019-04-23 00:35 ==
PROVIDERS: PCP Family Medicine; Visit Provider Family Medicine
DX: I26.99 Other pulmonary embolism without acute cor pulmonale; Z79.01 Long term (current) use of anticoagulants
CPT/HCPCS: 36415; 93306; 85610

== ENCOUNTER 2019-05-22 13:20 | Outpatient (CLI) | payer MEDICARE, MEDICAID, SELFPAY ==
[2019-05-22 13:54] LABS: INR 2.8 (0.9-1.1); Prothrombin Time 27.8 sec (9.3-11.0)
== END 2019-05-22 13:40 ==
PROVIDERS: PCP Family Medicine; Visit Provider Family Medicine
DX: E03.9 Hypothyroidism, unspecified (principal); I26.99 Other pulmonary embolism without acute cor pulmonale; Z79.01 Long term (current) use of anticoagulants
CPT/HCPCS: 36415; 84443; 85610

== ENCOUNTER 2019-07-09 13:28 | Outpatient (CLI) | payer MEDICARE, MEDICAID, SELFPAY ==
[2019-07-09 14:16] LABS: INR 2.2 (0.9-1.1); Prothrombin Time 22.4 sec (9.3-11.0)
== END 2019-07-09 13:48 ==
PROVIDERS: PCP Family Medicine; Visit Provider Family Medicine
DX: I26.99 Other pulmonary embolism without acute cor pulmonale (principal); Z79.01 Long term (current) use of anticoagulants
CPT/HCPCS: 36415; 85610

== ENCOUNTER 2019-07-18 11:16 | Outpatient (CLI) | payer MEDICARE, MEDICAID, SELFPAY ==
[2019-07-18 12:31] LABS: INR 3.4 (0.9-1.1); Prothrombin Time 34.7 sec (9.3-11.0)
== END 2019-07-18 11:36 ==
PROVIDERS: PCP Family Medicine; Visit Provider Family Medicine
DX: I26.99 Other pulmonary embolism without acute cor pulmonale (principal); Z79.01 Long term (current) use of anticoagulants
CPT/HCPCS: 36415; 85610

== ENCOUNTER 2019-07-28 15:11 | Outpatient (CLI) | payer MEDICARE, MEDICAID, SELFPAY ==
[2019-07-28 15:46] LABS: INR 2.1 (0.9-1.1); Prothrombin Time 21.2 sec (9.3-11.0)
== END 2019-07-28 15:31 ==
PROVIDERS: PCP Family Medicine; Visit Provider Family Medicine
DX: I26.99 Other pulmonary embolism without acute cor pulmonale (principal); Z79.01 Long term (current) use of anticoagulants
CPT/HCPCS: 36415; 85610

== ENCOUNTER 2019-08-05 15:11 | Outpatient (CLI) | payer MEDICARE, MEDICAID, SELFPAY ==
[2019-08-05 16:19] LABS: Prothrombin Time 29.1 sec (9.3-11.0)
== END 2019-08-05 15:31 ==
PROVIDERS: PCP Family Medicine; Visit Provider Family Medicine
DX: I26.99 Other pulmonary embolism without acute cor pulmonale (principal); Z79.01 Long term (current) use of anticoagulants
CPT/HCPCS: 36415; 85610

== ENCOUNTER 2019-08-13 12:10 | Outpatient (CLI) | payer MEDICARE, MEDICAID, SELFPAY ==
[2019-08-13 13:14] LABS: Prothrombin Time 29.8 sec (9.3-11.0)
== END 2019-08-13 12:30 ==
PROVIDERS: PCP Family Medicine; Visit Provider Family Medicine
DX: I26.99 Other pulmonary embolism without acute cor pulmonale (principal); Z79.01 Long term (current) use of anticoagulants
CPT/HCPCS: 36415; 85610

== ENCOUNTER 2019-09-08 14:30 | Outpatient (REF) | payer MEDICARE, MEDICAID, SELFPAY ==
--- NOTE | 2019-09-08 13:20 | PAPFT_PTH ---
PATIENT: Julia Barron LOC: [facility] U#:[id number] AGE/SX: 58/F ROOM: RE09/08/[address]: LENNY Little : 1960 BED: DIS: 09/08/2019 SPEC #: [id number] RECD: 09/08/19 18:05 STATUS: YASMEEN REQ #: [id number] PERRI: 09/08/19 13:[address]: Anjali Reed DEPT: [facility] Cytology RECD BY: Nelida Encinas ENTERED: 09/08/19 18:05 SP TYPE: PAPFT OTHR DR: Joaquin Kenney MD Tissues: 1 - CX/ENDOCX FOR PAP SMEARS Procedures: PAP THIN PREP/UVM Screening Comments: [id number]
[2019-09-18 21:18] LABS: HPV High Risk type 16, PCR Negative (Negative); HPV High Risk type 18, PCR Positive (Negative); HPV other High Risk types, PCR Positive (Negative); Specimen Source VAGINAL
== END 2019-09-08 14:50 ==
LOC: LBN 14:30
PROVIDERS: PCP Family Medicine; Visit Provider Nurse Practitioner Family
DX: Z12.4 Encounter for screening for malignant neoplasm of cervix (principal); Z11.51 Encounter for screening for human papillomavirus (HPV)
CPT/HCPCS: 87624; 88142

== ENCOUNTER 2019-09-15 12:46 | Outpatient (CLI) | payer MEDICARE, MEDICAID, SELFPAY ==
[2019-09-15 13:49] LABS: Prothrombin Time 39.2 sec (9.3-11.0)
== END 2019-09-15 13:06 ==
PROVIDERS: PCP Family Medicine; Visit Provider Family Medicine
DX: I26.99 Other pulmonary embolism without acute cor pulmonale (principal); Z79.01 Long term (current) use of anticoagulants
CPT/HCPCS: 36415; 85610

== ENCOUNTER 2019-09-22 13:02 | Outpatient (CLI) | payer MEDICARE, MEDICAID, SELFPAY ==
[2019-09-22 14:03] LABS: INR 3.5 (0.9-1.1); Prothrombin Time 33.7 sec (9.3-11.0)
== END 2019-09-22 13:22 ==
PROVIDERS: PCP Family Medicine; Visit Provider Family Medicine
DX: I26.99 Other pulmonary embolism without acute cor pulmonale (principal); Z79.01 Long term (current) use of anticoagulants
CPT/HCPCS: 36415; 85610

== ENCOUNTER 2019-09-30 13:15 | Outpatient (CLI) | payer MEDICARE, MEDICAID, SELFPAY ==
[2019-09-30 13:50] LABS: INR 2.6 (0.9-1.1); Prothrombin Time 25.4 sec (9.3-11.0)
== END 2019-09-30 13:35 ==
PROVIDERS: PCP Family Medicine; Visit Provider Family Medicine
DX: I26.99 Other pulmonary embolism without acute cor pulmonale (principal); Z79.01 Long term (current) use of anticoagulants
CPT/HCPCS: 36415; 85610

== ENCOUNTER 2019-10-07 12:17 | Outpatient (CLI) | payer MEDICARE, MEDICAID, SELFPAY ==
[2019-10-07 14:30] LABS: INR 2.7 (0.9-1.1); Prothrombin Time 26.3 sec (9.3-11.0)
== END 2019-10-07 12:37 ==
PROVIDERS: PCP Family Medicine; Visit Provider Family Medicine
DX: I26.99 Other pulmonary embolism without acute cor pulmonale (principal); Z79.01 Long term (current) use of anticoagulants
CPT/HCPCS: 36415; 85610

== ENCOUNTER 2019-10-23 14:57 | Outpatient (CLI) | payer MEDICARE, MEDICAID, SELFPAY ==
[2019-10-23 16:06] LABS: INR 2.7 (0.9-1.1); Prothrombin Time 26.2 sec (9.3-11.0)
== END 2019-10-23 15:17 ==
PROVIDERS: PCP Family Medicine; Visit Provider Family Medicine
DX: I26.99 Other pulmonary embolism without acute cor pulmonale (principal); Z79.01 Long term (current) use of anticoagulants
CPT/HCPCS: 36415; 85610

== ENCOUNTER 2019-11-27 10:44 | Outpatient (CLI) | payer MEDICARE, MEDICAID, SELFPAY ==
[2019-11-27 11:38] LABS: INR 2.6 (0.9-1.1); Prothrombin Time 25.9 sec (9.3-11.0)
== END 2019-11-27 11:04 ==
PROVIDERS: PCP Family Medicine; Visit Provider Family Medicine
DX: I26.99 Other pulmonary embolism without acute cor pulmonale (principal); Z79.01 Long term (current) use of anticoagulants
CPT/HCPCS: 36415; 85610

== ENCOUNTER 2019-12-17 13:20 | Outpatient (CLI) | payer MEDICARE, MEDICAID, SELFPAY ==
[2019-12-17 14:26] LABS: Prothrombin Time 29.2 sec (9.3-11.0)
== END 2019-12-17 13:40 ==
PROVIDERS: PCP Family Medicine; Visit Provider Family Medicine
DX: I26.99 Other pulmonary embolism without acute cor pulmonale (principal); Z79.01 Long term (current) use of anticoagulants
CPT/HCPCS: 36415; 85610

== ENCOUNTER 2020-01-01 16:40 | Outpatient (RCR) | payer MEDICARE, MEDICAID, SELFPAY | END 2020-01-10 23:59 | disposition home or self-care (01) | LOC: PRC 16:40 | PROVIDERS: PCP Family Medicine; Visit Provider Family Medicine | DX: J44.9 Chronic obstructive pulmonary disease, unspecified (principal); Z51.89 Encounter for other specified aftercare ==

== ENCOUNTER 2020-01-11 14:28 | Emergency (ER) | payer MEDICARE, MEDICAID, SELFPAY ==
[2020-01-11 14:31] VITALS: BP 134/93; PULSE 83; RESP 20; TEMP 36.2; O2SAT 100
--- NOTE | 2020-01-11 14:45 | DI.CT_ITS ---
EXAM: CT ABDOMEN AND PELVIS W CLINICAL HISTORY: LOWER ABDOMINAL PAIN, WAIT FOR CR TECHNIQUE: Post IV and oral contrast. COMPARISON: CT CHEST PE CTA from 02/17/2019 FINDINGS: The oral contrast extends to the cecum. The appendix appears normal. There is no small bowel dilatati on or wall thickening. There is diverticulosis of the lower descending and sigmoid colon. There is wa ll thickening and mild stranding in the mid sigmoid, consistent with diverticulitis. There is no afua e air or free fluid. The bladder is unremarkable. The patient is status post hysterectomy. The heart size is normal. The lung bases are clear. Liver shows a cyst posteriorly. Stones are noted in the g allbladder. The gallbladder wall is not thickened. The adrenals and pancreas are unremarkable. No madonna al calculi or hydronephrosis is seen. The aorta is normal in diameter and shows mild calcification. T he spine is unremarkable. IMPRESSION: Uncomplicated mild sigmoid diverticulitis.
[2020-01-11 14:48] LABS: Bilirubin Negative (Negative); Blood Trace-intact (Negative); Clarity Clear (Clear); Glucose Negative (Negative); Ketones Negative (Negative); Leukocyte Esterase Negative (Negative); Nitrite Negative (Negative); Specific Gravity <= 1.005 (1.005-1.025); Urobilinogen 0.2 EU/dL (Up TO 0.2); pH 6.5 (5-8)
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
[2020-01-11 14:58] LABS: Abs Immature Grans 0.01 k/cumm (0.0-0.09); Absolute Basophil Count 0.04 k/cumm (0.0-0.2); Absolute Lymphocyte Count 1.61 k/cumm (1.2-3.4); Absolute Monocyte Count 0.53 k/cumm (0.11-0.7); Absolute Neutrophil Count 2.33 k/cumm (1.2-6.7); Basophils % 0.9; Eosinophils % 2.2; HCT 38.7 % (36.0-46.0); Immature Grans % 0.2 %; Lymphocytes % 34.8; Mean Corp. HGB Concentration 33.6 g/dL (32.0-36.0); Mean Corpuscular Hemoglobin 29.7 pg (27.0-33.0); Mean Corpuscular Volume 88.6 fL (80-95); Mean Platelet Volume 9.1 fL (8.0-11.0); Monocytes % 11.5; Neutrophils % 50.4; Platelet Count 287 x1000/uL (130-400); RBC 4.37 m/cumm (4.00-5.20); RBC Distribution Width 13.7 % (11.7-14.6); White Blood Cell Count 4.62 k/cumm (4.4-10.8)
[2020-01-11 14:59] LABS: Bacteria Negative HPF (Negative); C & S Indicated? No; Casts Negative LPF (Negative); Crystals Negative HPF (Negative); Epithelial Cells Rare HPF (Negative); Mucus Negative (Negative); RBC 0-2 HPF (0-2); WBC 0-2 HPF (0-5)
[2020-01-11] MEDS: Normal Saline 1,000 ML 150 ML IV (15:04)
[2020-01-11 15:10] LABS: ALT 30 U/L (14-59); AST 25 U/L (15-37); Albumin 3.6 g/dL (3.4-5.0); Alkaline Phosphatase 111 U/L (46-116); Anion Gap 8.4 mmol/L (3-11); BUN 7 mg/dL (7-18); Bilirubin, Total 0.5 mg/dL (0.2-1.0); CO2 29.6 mmol/L (21.0-32.0); CREATININE 0.91 mg/dL (0.55-1.02); Calcium 8.3 mg/dL (8.5-10.1); Chloride 104 mmol/L (98-107); Glucose 98 mg/dL (74-106); Magnesium 1.9 mg/dL (1.8-2.4); Potassium 3.2 mmol/L (3.5-5.1); Sodium 142 mmol/L (136-145); Total Protein 7.3 g/dL (6.4-8.2)
[2020-01-11 15:29] LABS: Lipase 99 U/L (73-393)
[2020-01-11 16:04] LABS: Prothrombin Time 42.3 sec (9.3-11.0)
[2020-01-11 16:06] LABS: INR 4.4 (0.9-1.1)
[2020-01-11] MEDS: Omnipaque 350 MG/ML 50 ML BTL IJ (16:46)
[2020-01-11] MEDS: Normal Saline - Diluent 50 ML VIAL IV (16:47)
[2020-01-11] MEDS: Breeza Beverage 473 ML BTL PO (16:47)
[2020-01-11] MEDS: Omnipaque 350 MG/ML 100 ML BTL IJ (16:47)
--- NOTE | 2020-01-11 17:46 | DI.VRAD_ITS ---
PROCEDURE INFORMATION: Exam: CT Abdomen And Pelvis With Contrast Exam date and time: 01/11/2020 2:53 PM Age: 59 years old Clinical indication: Other: Lower abd pain TECHNIQUE: Imaging protocol: Computed tomography of the abdomen and pelvis with intravenous contrast. Radiation optimization: All CT scans at this facility use at least one of these dose optimization techniques: automated exposure control; mA and/or kV adjustment per patient size (includes targeted exams where dose is matched to clinical indication); or iterative reconstruction. Contrast material: OMNI 350; Contrast volume: 100 ml; Contrast route: IV; COMPARISON: No relevant prior studies available. FINDINGS: Lungs: The visualized portions of the lung bases are normal. Liver: There is a 3.8 cm cyst in the posterior segment of the right lobe of the liver. There is a diffuse decrease in hepatic parenchymal density, consistent with mild fatty infiltration. Gallbladder and bile ducts: There are small stones in the dependent portion of the gallbladder. No gallbladder wall thickening or pericholecystic fluid or fat stranding is demonstrated. Pancreas: The pancreas is normal. Spleen: The spleen is normal. Adrenals: The adrenal glands are normal. Kidneys and ureters: There is a 7 mm low-density focus in the lower pole of the right kidney which is too small to characterize. The kidneys are otherwise unremarkable. Stomach and bowel: There is mild left colonic diverticulosis. There is a 4 cm segment of relative mucosal thickening in the mid sigmoid colon with surrounding fat stranding suggesting mild diverticulitis. The stomach and bowel loops are otherwise unremarkable. Appendix: A normal appendix is identified. Intraperitoneal space: Unremarkable. No free air. No significant fluid collection. Vasculature: The aorta demonstrates mild atherosclerotic calcification. Lymph nodes: There are scattered sub 5 mm mesenteric lymph nodes which are nonspecific. Bladder: Unremarkable as visualized. Reproductive: There has been a hysterectomy. Bones/joints: Unremarkable. No acute fracture. Soft tissues: Unremarkable. IMPRESSION: 1. Mild diverticulosis with evidence of mild mid sigmoid uncomplicated diverticulitis. 2. 7 mm well-circumscribed low-density focus lower pole of right kidney which is too small to characterize. No further workup is recommended. 3. Hepatic cyst. No further follow-up recommended. 4. Mild fatty infiltration of the liver. 5. Cholelithiasis. Dictated and Authenticated by: Hemanth Blanco MD. Ordering:JESSI Butt MD
--- NOTE | 2020-01-11 18:11 | NUR.NOTE ---
Referral faxed to [facility], Dr. Montez. Nursing Note:
[2020-01-11 18:16] VITALS: BP 120/70; PULSE 80; RESP 20; TEMP 36.8; O2SAT 100
[2020-01-11] MEDS: metroNIDAZOLE 500 MG TAB, 3 TABS/BTL PO (18:16)
== END 2020-01-11 18:21 | disposition home or self-care (01) ==
PROVIDERS: Emergency Provider Emergency Medicine; PCP Family Medicine
DX: K57.32 Diverticulitis of large intestine without perforation or abscess without bleeding (principal); R79.1 Abnormal coagulation profile; T45.515A Adverse effect of anticoagulants, initial encounter; Z79.01 Long term (current) use of anticoagulants; Z86.711 Personal history of pulmonary embolism; J44.9 Chronic obstructive pulmonary disease, unspecified; F17.210 Nicotine dependence, cigarettes, uncomplicated; I10 Essential (primary) hypertension
CPT/HCPCS: 36415; 80053; 83690; 96360; 96361; 99285; 74177; 81003; 81015; 83735; 85025; 85610; 99284; J3490; Q9967

== ENCOUNTER 2020-01-12 10:45 | Outpatient (CLI) | payer MEDICARE, MEDICAID, SELFPAY ==
[2020-01-12 11:21] LABS: INR 3.4 (0.9-1.1); Prothrombin Time 33.1 sec (9.3-11.0)
== END 2020-01-12 11:05 ==
PROVIDERS: PCP Family Medicine; Visit Provider Family Medicine
DX: I26.99 Other pulmonary embolism without acute cor pulmonale (principal); Z79.01 Long term (current) use of anticoagulants
CPT/HCPCS: 36415; 85610

== ENCOUNTER 2020-01-15 10:54 | Outpatient (CLI) | payer MEDICARE, MEDICAID, SELFPAY ==
[2020-01-15 11:50] LABS: Prothrombin Time 19.6 sec (9.3-11.0)
== END 2020-01-15 11:14 ==
PROVIDERS: PCP Family Medicine; Visit Provider Family Medicine
DX: I26.99 Other pulmonary embolism without acute cor pulmonale (principal); Z79.01 Long term (current) use of anticoagulants
CPT/HCPCS: 36415; 85610

== ENCOUNTER 2020-01-19 14:05 | Outpatient (CLI) | payer MEDICARE, MEDICAID, SELFPAY ==
[2020-01-19 14:53] LABS: INR 2.5 (0.9-1.1); Prothrombin Time 24.6 sec (9.3-11.0)
== END 2020-01-19 14:25 ==
PROVIDERS: PCP Family Medicine; Visit Provider Family Medicine
DX: I26.99 Other pulmonary embolism without acute cor pulmonale (principal); Z79.01 Long term (current) use of anticoagulants
CPT/HCPCS: 36415; 85610

== ENCOUNTER 2020-01-27 13:13 | Outpatient (CLI) | payer MEDICARE, MEDICAID, SELFPAY ==
[2020-01-27 14:07] LABS: INR 1.7 (0.9-1.1); Prothrombin Time 16.5 sec (9.3-11.0)
== END 2020-01-27 13:33 ==
PROVIDERS: PCP Family Medicine; Visit Provider Family Medicine
DX: I26.99 Other pulmonary embolism without acute cor pulmonale (principal); Z79.01 Long term (current) use of anticoagulants
CPT/HCPCS: 36415; 85610

== ENCOUNTER 2020-02-03 09:17 | Outpatient (CLI) | payer MEDICARE, MEDICAID, SELFPAY ==
[2020-02-03 09:56] LABS: Prothrombin Time 19.5 sec (9.3-11.0)
== END 2020-02-03 09:37 ==
PROVIDERS: PCP Family Medicine; Visit Provider Family Medicine
DX: I26.99 Other pulmonary embolism without acute cor pulmonale (principal); Z79.01 Long term (current) use of anticoagulants
CPT/HCPCS: 36415; 85610

== ENCOUNTER 2020-02-17 13:59 | Outpatient (CLI) | payer MEDICARE, MEDICAID, SELFPAY | END 2020-02-17 14:19 | PROVIDERS: PCP Family Medicine; Visit Provider Family Medicine | DX: I26.99 Other pulmonary embolism without acute cor pulmonale (principal); Z79.01 Long term (current) use of anticoagulants | CPT/HCPCS: 36415; 85610 ==

== ENCOUNTER 2020-03-19 02:53 | Outpatient (CLI) | payer MEDICARE, MEDICAID, SELFPAY ==
[2020-03-19 15:16] LABS: INR 3.4 (0.9-1.1); Prothrombin Time 33.5 sec (9.3-11.0)
== END 2020-03-19 03:13 ==
PROVIDERS: PCP Family Medicine; Visit Provider Family Medicine
DX: I26.99 Other pulmonary embolism without acute cor pulmonale (principal); Z79.01 Long term (current) use of anticoagulants
CPT/HCPCS: 36415; 85610

== ENCOUNTER 2020-03-29 02:32 | Outpatient (CLI) | payer MEDICARE, MEDICAID, SELFPAY ==
[2020-03-29 12:55] LABS: INR 1.7 (0.9-1.1); Prothrombin Time 16.7 sec (9.3-11.0)
== END 2020-03-29 02:52 ==
PROVIDERS: PCP Family Medicine; Visit Provider Family Medicine
DX: I26.99 Other pulmonary embolism without acute cor pulmonale (principal); Z79.01 Long term (current) use of anticoagulants
CPT/HCPCS: 36415; 85610

== ENCOUNTER 2020-04-06 11:32 | Outpatient (CLI) | payer MEDICARE, MEDICAID, SELFPAY ==
[2020-04-06 15:56] LABS: INR 3.2 (0.9-1.1); Prothrombin Time 31.2 sec (9.3-11.0)
== END 2020-04-06 11:52 ==
PROVIDERS: PCP Family Medicine; Visit Provider Family Medicine
DX: I26.99 Other pulmonary embolism without acute cor pulmonale (principal); Z79.01 Long term (current) use of anticoagulants
CPT/HCPCS: 36415; 85610

== ENCOUNTER 2020-04-14 02:43 | Outpatient (CLI) | payer MEDICARE, MEDICAID, SELFPAY ==
[2020-04-14 15:08] LABS: INR 2.3 (0.9-1.1); Prothrombin Time 22.8 sec (9.3-11.0)
== END 2020-04-14 03:03 ==
PROVIDERS: PCP Family Medicine; Visit Provider Family Medicine
DX: I26.99 Other pulmonary embolism without acute cor pulmonale (principal); Z79.01 Long term (current) use of anticoagulants
CPT/HCPCS: 36415; 85610

== ENCOUNTER 2020-04-15 15:07 | Emergency (ER) | payer MEDICARE, MEDICAID, SELFPAY ==
[2020-04-15 15:10] VITALS: BP 141/102; PULSE 88; RESP 16; TEMP 36.5; O2SAT 98
--- NOTE | 2020-04-15 15:10 | ED.GENADUL_ITS ---
Discharge Plan Disposition Patient Disposition: HOME Condition: Stable Discharge Details Chief Complaint: Abd Prob Clinical Impression: Acute diverticulitis Primary Care Provider: Joaquin Kenney ED Provider: Shirley Gordon Home Meds and New Rx's Prescriptions: New ciprofloxacin HCl [Cipro] 500 mg tablet 500 mg PO BID 9 Days Qty: 18 RF: 0 metronidazole [Flagyl] 500 mg tablet 500 mg PO TID 9 Days Qty: 27 RF: 0 Continued cromolyn [Nasalcrom] 5.2 mg/spray (4 %) spray,non-aerosol 1 spray ESTER TID Qty: 26 RF: 11 lisinopril 20 mg tablet 20 mg PO DAILY Qty: 90 RF: 3 propranolol 10 mg tablet 10 mg PO BID Qty: 180 RF: 3 simvastatin [Zocor] 20 mg tablet 20 mg PO HS Qty: 90 RF: 4 (DME) Easy Touch 3 mL 20 gauge x 1 syringe 1 syringe IM Q3WK Qty: 20 RF: 3 trazodone 100 mg tablet 50 - 100 mg PO HS Qty: 90 RF: 4 warfarin 2.5 mg tablet See Rx Instructions PO DIRECTED Qty: 180 RF: 3 levothyroxine 50 mcg tablet 50 mcg PO DAILY Qty: 90 RF: 4 esomeprazole magnesium 40 mg capsule,delayed release(DR/EC) 40 mg PO DAILY Qty: 90 RF: 3 duloxetine [Cymbalta] 60 mg capsule,delayed release(DR/EC) 60 mg PO DAILY Qty: 90 RF: 4 cyanocobalamin (vitamin B-12) 1,000 mcg/mL solution 1,000 mcg IM Q 3WEEK Qty: 1 RF: 11 albuterol sulfate [Ventolin HFA] 90 mcg/actuation HFA aerosol inhaler 2 puff IH Q4H PRN (Reason: shortness of breath or wheezing) Qty: 8.5 RF: 5 cyclobenzaprine 5 MG tablet 5 mg PO BID PRNQty: 30 RF: 0 letrozole [Femara] 2.5 MG tablet 2.5 mg PO DAILY RF: 0 colestipol 1 gram tablet 2 - 3 gm PO BID Qty: 180 RF: 11 epinephrine 0.3 mg/0.3 mL auto-injector 0.3 mg IM ONCE PRN 1 Days Qty: 2 RF: 3 Discharge Instructions Instructions: Diverticulitis (ED), Diverticulitis Diet (ED) Additional Instructions: Drink plenty of fluids and get plenty of rest. Take Tylenol as needed and directed for pain. Take the antibiotics until finished. Be sure to call your primary care doctor tomorrow to schedule a follow-up appointment for reevaluation and for recheck of your INR as both the antibiotics you are taking can affect your INR level. Return to the emergency department with any worsening or new concerning symptoms. Discharge Data Discharge Date/Time-TO BE ENTERED AT DEPARTURE: 04/15/20 18:16 Discharge Physician: Shirley Gordon Medical Decision Making 1515 -- 59-year-old female with a history of diverticulitis presents for lower abdominal pain and nausea since last night. Patient appears nontoxic. Vitals within normal limits. She has lower abdominal tenderness, most significant in suprapubic region. No rigidity or guarding. Differential diagnosis includes acute diverticulitis, appendicitis, bowel obstruction, UTI, gastroenteritis or colitis. Will place an IV, bolus IV fluids, screening labs, urinalysis and CT abdomen and pelvis. She is declining pain medication at this time. 1700 --labs reviewed and unremarkable. Patient reassessed and states pain is still present but minimal. She is declining any narcotic pain medication. Will give a dose of IV Tylenol as she has a history of allergy to NSAIDs. CT notes questionable very early diverticulitis. As patient is stable, appears nontoxic with normal labs, will plan for discharge home with p.o. antibiotics. She has had severe diarrhea in the past with Augmentin and would prefer not to take this. Although she is taking Coumadin and trazodone which have interactions with Cipro and Flagyl, she took both of these medications in January which she tolerated and had regular checks of her INR. She was advised to hold the trazodone while on the antibiotics if possible. Declined narcotic medications. Advised to follow up with the primary care doctor for re-evaluation and for continued monitoring of her INR. An order was placed for PT/INR for this Sunday per patient request. She is advised to call her primary tomorrow for continued check of her INR. Usual and customary return precautions given prior to discharge. Medical Records Medical records reviewed: Yes I reviewed the patient's medical records. Imaging Data Radiologic Study: Radiologist's impression: CT Abdomen And Pelvis With Contrast Exam date and time: 04/15/2020 4:53 PM Age: 59 years old Clinical indication: Abdominal pain; Localized; Patient HX: Lower abdomen pain. HX of diverticulitis TECHNIQUE: Imaging protocol: Computed tomography of the abdomen and pelvis with intravenous contrast. Radiation optimization: All CT scans at this facility use at least one of these dose optimization techniques: automated exposure control; mA and/or kV adjustment per patient size (includes targeted exams where dose is matched to clinical indication); or iterative reconstruction. Contrast material: OMNI-PAQUE 350; Contrast volume: 100 ml; Contrast route: IV; COMPARISON: CT ABDOMEN PELVIS W 01/11/2020 4:36 PM FINDINGS: Lungs: There are slight dependent atelectatic changes at the lung bases. Heart: The visualized portions of the heart and pericardium are unremarkable. Liver: There is a cyst within the right lobe of the liver measuring 3.7 cm. This is not significantly changed when compared to the prior study. Gallbladder and bile ducts: There are small calcified gallstones within the gallbladder. These were present on the earlier study as well. Pancreas: The pancreas is within normal limits. Spleen: The spleen is unremarkable. Adrenals: The adrenal glands are unremarkable. Kidneys and ureters: The kidneys are within normal limits. Stomach and bowel: There are diverticuli of the sigmoid colon. There is slight pericolonic inflammation of the mesenteric fat. This could represent very early sigmoid diverticulitis. Appendix: The appendix is visualized and is within normal limits. Intraperitoneal space: See Stomach and bowel finding. Vasculature: There are arteriosclerotic changes of the aorta. There are multiple phleboliths within the pelvis. Lymph nodes: No enlarged lymph nodes. Bladder: The urinary bladder is unremarkable. Reproductive: The patient is status post hysterectomy. Bones/joints: The patient is status post sternotomy. There are degenerative changes of the thoracic and lumbar spines. Soft tissues: Unremarkable. IMPRESSION: Question very early diverticulitis as described above. Clinical correlation is recommended. Stable liver cyst. Cholelithiasis as above. Status post hysterectomy. Osseous findings as above. Lab Data Lab results reviewed: Yes I reviewed the patient's lab results. Labs: Laboratory Tests Range/Units 04/15/20 04/15/20 04/15/20 15:45 15:45 15:45 WBC (4.4-10.8) k/cumm 5.34 RBC (4.00-5.20) m/cumm 4.44 Hgb (12.0-15.5) g/dL 13.0 Hct (36.0-46.0) % 39.4 MCV (80-95) fL 88.7 MCH (27.0-33.0) pg 29.3 MCHC (32.0-36.0) g/dL 33.0 RDW (11.7-14.6) % 13.8 Plt Count (130-400) x1000/uL 316 MPV (8.0-11.0) fL 9.3 Immature Gran % % 0.2 Neutrophils % 62.1 Lymphocytes % 27.9 Monocytes % 7.7 Eosinophils % 1.9 Basophils % 0.2 Absolute Neutrophils (1.2-6.7) k/cumm 3.32 Absolute Lymphocytes (1.2-3.4) k/cumm 1.49 Absolute Monocytes (0.11-0.7) k/cumm 0.41 Absolute Eosinophils (0.0-0.7) k/cumm 0.10 Absolute Basophils (0.0-0.2) k/cumm 0.01 PT (9.3-11.0) sec 22.0 H INR (0.9-1.1) 2.2 H APTT (21.0-31.4) sec 37.2 H Sodium (136-145) mmol/L 137 Potassium (3.5-5.1) mmol/L 4.0 Chloride (98-107) mmol/L 103 Carbon Dioxide (21.0-32.0) mmol/L 26.9 Anion Gap (3-11) mmol/L 7.1 BUN (7-18) mg/dL 7 Creatinine (0.55-1.02) mg/dL 1.02 Estimated GFR/1.73 m2 (mL/min/1.73m2) 55.09 Glucose (74-106) mg/dL 94 Calcium (8.5-10.1) mg/dL 8.8 Total Bilirubin (0.2-1.0) mg/dL 0.3 AST (15-37) U/L 20 ALT (14-59) U/L 32 Alkaline Phosphatase (46-116) U/L 100 Total Protein (6.4-8.2) g/dL 7.1 Albumin (3.4-5.0) g/dL 3.6 Lipase (73-393) U/L 96 Urine Color (Yellow) Urine Clarity (Clear) Urine pH (5-8) Ur Specific Arnett (1.005-1.025) Urine Protein (Negative) mg/dL Urine Ketones (Negative) mg/dL Urine Blood (Negative) Urine Nitrite (Negative) Urine Bilirubin (Negative) Urine Urobilinogen (Up TO 0.2) EU/dL Ur Leukocyte Esterase (Negative) Urine RBC (0-2) HPF Urine WBC (0-5) HPF Ur Epithelial Cells (Negative) HPF Urine Crystals (Negative) HPF Urine Bacteria (Negative) HPF Urine Casts (Negative) LPF Urine Mucus (Negative) Ur Culture Indicated? Urine Glucose (Negative) mg/dL COVID-19 PCR Nasopharyn COVID-19 PCR Ref Test Perform Site Range/Units 04/15/20 04/15/20 15:55 17:03 WBC (4.4-10.8) k/cumm RBC (4.00-5.20) m/cumm Hgb (12.0-15.5) g/dL Hct (36.0-46.0) % MCV (80-95) fL MCH (27.0-33.0) pg MCHC (32.0-36.0) g/dL RDW (11.7-14.6) % Plt Count (130-400) x1000/uL MPV (8.0-11.0) fL Immature Gran % % Neutrophils % Lymphocytes % Monocytes % Eosinophils % Basophils % Absolute Neutrophils (1.2-6.7) k/cumm Absolute Lymphocytes (1.2-3.4) k/cumm Absolute Monocytes (0.11-0.7) k/cumm Absolute Eosinophils (0.0-0.7) k/cumm Absolute Basophils (0.0-0.2) k/cumm PT (9.3-11.0) sec INR (0.9-1.1) APTT (21.0-31.4) sec Sodium (136-145) mmol/L Potassium (3.5-5.1) mmol/L Chloride (98-107) mmol/L Carbon Dioxide (21.0-32.0) mmol/L Anion Gap (3-11) mmol/L BUN (7-18) mg/dL Creatinine (0.55-1.02) mg/dL Estimated GFR/1.73 m2 (mL/min/1.73m2) Glucose (74-106) mg/dL Calcium (8.5-10.1) mg/dL Total Bilirubin (0.2-1.0) mg/dL AST (15-37) U/L ALT (14-59) U/L Alkaline Phosphatase (46-116) U/L Total Protein (6.4-8.2) g/dL Albumin (3.4-5.0) g/dL Lipase (73-393) U/L Urine Color (Yellow) Yellow Urine Clarity (Clear) Clear Urine pH (5-8) 6.0 Ur Specific Arnett (1.005-1.025) 1.010 Urine Protein (Negative) mg/dL Negative Urine Ketones (Negative) mg/dL Negative Urine Blood (Negative) Small H Urine Nitrite (Negative) Negative Urine Bilirubin (Negative) Negative Urine Urobilinogen (Up TO 0.2) EU/dL 0.2 Ur Leukocyte Esterase (Negative) Negative Urine RBC (0-2) HPF 0-2 Urine WBC (0-5) HPF Negative Ur Epithelial Cells (Negative) HPF Negative Urine Crystals (Negative) HPF Negative Urine Bacteria (Negative) HPF Negative Urine Casts (Negative) LPF Negative Urine Mucus (Negative) Negative Ur Culture Indicated? No Urine Glucose (Negative) mg/dL Negative COVID-19 PCR Cancelled Nasopharyn COVID-19 PCR Cancelled Ref Test Perform Site Cancelled HPI General Mode of arrival: ambulatory . Date/Time Provider Initiated Documentation: 04/15/20 15:09 . Limitations to Documentation: no limitations . Information obtained by: patient . HPI Narrative: Pt is a 59yo F who presents to the ED w/ a c/o lower abdominal pain since last night. She describes the pain as constant, aching, and worse in the suprapubic region. States the pain is currently 2/10. States the pain is worse with lying on her right side and after eating. She admits to nausea and decreased appetite but denies any vomiting. She had an episode of diarrhea yesterday and a normal bowel movement without bleeding today. She denies any fever, cough, chest pain, shortness of breath, urinary symptoms, recent travel, recent exposure to coronavirus. She states her symptoms feel similar to when she has had diverticulitis in the past. Related Data Home Medications Medication Instructions Recorded Confirmed cyclobenzaprine 5 mg PO BID PRN #30 tab-cap 06/28/16 04/15/20 letrozole [Femara] 2.5 mg PO DAILY tab-cap 11/17/16 04/15/20 cromolyn 5.2 mg/spray (4 %) nasal 1 spray ESTER TID #26 ml 11/18/18 04/15/20 spray albuterol sulfate 90 mcg/actuation 2 puff IH Q4H PRN #8.5 gm 11/25/19 04/15/20 aerosol inhaler cyanocobalamin (vitamin B-12) 1,000 mcg IM Q 3WEEK #1 vial 11/25/19 04/15/20 1,000 mcg/mL injection solution duloxetine 60 mg capsule,delayed 60 mg PO DAILY #90 tab-cap 11/25/19 04/15/20 release esomeprazole magnesium 40 mg 40 mg PO DAILY #90 cap 11/25/19 04/15/20 capsule,delayed release levothyroxine 50 mcg tablet 50 mcg PO DAILY #90 tab-cap 11/25/19 04/15/20 lisinopril 20 mg tablet 20 mg PO DAILY #90 tab 11/25/19 04/15/20 propranolol 10 mg tablet 10 mg PO BID #180 tab-cap 11/25/19 04/15/20 simvastatin 20 mg tablet 20 mg PO HS #90 tab-cap 11/25/19 04/15/20 syringe with needle 3 mL 20 gauge #20 syringe 11/25/19 01/14/20 x 1 trazodone 100 mg tablet 50 - 100 mg PO HS #90 tab-cap 11/25/19 04/15/20 warfarin 2.5 mg tablet See Rx Instructions PO DIRECTED 11/25/19 04/15/20 #180 tab-cap colestipol 1 gram tablet 2 - 3 gm PO BID #180 tab 12/16/19 04/15/20 epinephrine 0.3 mg/0.3 mL 0.3 mg IM ONCE PRN 1 Days #2 pen 03/29/20 04/15/20 injection, auto-injector ciprofloxacin HCl [Cipro] 500 mg PO BID 9 Days #18 tab 04/15/20 metronidazole [Flagyl] 500 mg PO TID 9 Days #27 tab 04/15/20 Previous Rx's Medication Instructions Recorded cromolyn 5.2 mg/spray (4 %) nasal 1 spray ESTER TID #26 ml 11/18/18 spray albuterol sulfate 90 mcg/actuation 2 puff IH Q4H PRN #8.5 gm 11/25/19 aerosol inhaler cyanocobalamin (vitamin B-12) 1,000 mcg IM Q 3WEEK #1 vial 11/25/19 1,000 mcg/mL injection solution duloxetine 60 mg capsule,delayed 60 mg PO DAILY #90 tab-cap 11/25/19 release esomeprazole magnesium 40 mg 40 mg PO DAILY #90 cap 11/25/19 capsule,delayed release levothyroxine 50 mcg tablet 50 mcg PO DAILY #90 tab-cap 11/25/19 lisinopril 20 mg tablet 20 mg PO DAILY #90 tab 11/25/19 propranolol 10 mg tablet 10 mg PO BID #180 tab-cap 11/25/19 simvastatin 20 mg tablet 20 mg PO HS #90 tab-cap 11/25/19 syringe with needle 3 mL 20 gauge #20 syringe 11/25/19 x 1 trazodone 100 mg tablet 50 - 100 mg PO HS #90 tab-cap 11/25/19 warfarin 2.5 mg tablet See Rx Instructions PO DIRECTED 11/25/19 #180 tab-cap colestipol 1 gram tablet 2 - 3 gm PO BID #180 tab 12/16/19 epinephrine 0.3 mg/0.3 mL 0.3 mg IM ONCE PRN 1 Days #2 pen 03/29/20 injection, auto-injector ciprofloxacin HCl [Cipro] 500 mg PO BID 9 Days #18 tab 04/15/20 metronidazole [Flagyl] 500 mg PO TID 9 Days #27 tab 04/15/20 Allergies Allergy/AdvReac Type Severity Reaction Status Date / Time nicotine Allergy Severe ITCHING Unverified 04/15/20 15:18 celecoxib Allergy Intermediate FACIAL Unverified 04/15/20 15:18 SWELLING NSAIDS (Non-Steroidal Allergy Intermediate FACIAL Unverified 04/15/20 15:18 Anti-Inflamma SWELLING folic acid Allergy Unknown ITCHING Unverified 04/15/20 15:18 pyridoxine Allergy Unknown ITCHING Unverified 04/15/20 15:18 Sulfa (Sulfonamide Allergy Unknown Unverified 04/15/20 15:18 Antibiotics) tramadol Allergy Unknown Unverified 04/15/20 15:18 amoxicillin trihydrate AdvReac Intermediate Diarrhea Unverified 04/15/20 15:18 [From Augmentin] and stomach pain potassium clavulanate AdvReac Intermediate Diarrhea Unverified 04/15/20 15:18 [From Augmentin] and stomach pain hydrocodone AdvReac Unknown Unverified 04/15/20 15:18 varenicline tartrate AdvReac Unknown Unverified 04/15/20 15:18 [From Chantix] WHITE FACED HORNET Allergy Unknown Uncoded 04/15/20 15:18 General YAMEL: 3 Review of Systems All systems reviewed & are unremarkable except as noted in HPI and below Constitutional Constitutional: Reports as per HPI, Denies chills and Denies fever(s) Eyes Eyes: Denies blurry vision ENT Ears, Nose, Mouth, and Throat: Denies dizziness, Denies sore throat and Denies throat swelling Cardiovascular Cardiovascular: Denies chest pain and Denies dyspnea Respiratory Respiratory: Denies cough and Denies dyspnea Gastrointestinal Gastrointestinal: Reports abdominal pain, Denies diarrhea, Reports nausea and Denies vomiting Genitourinary Genitourinary: Denies hematuria and Denies dysuria Musculoskeletal Musculoskeletal: Denies back pain and Denies numbness Integumentary/Breasts Skin/Breast: Denies lesions and Denies rash Neurologic Neurologic: Denies dizziness, Denies localized weakness and Denies numbness Allergic/Immunologic Allergic/Immunologic: Denies throat swelling [facility] Social History (Updated 10/07/19 @ 12:57 by Marichuy Hartman RN) Smoking/Tobacco Use Status: Current every day Tobacco: How many years used: 49 Quit status: not considering quitting Alcohol Intake: former Drug use: Never Substance use type: does not use Details: has not drank in years Household members: none Pets and animals: No Duration: 15-30 minutes/day Frequency: 3-4 times per week Jennie/Caodaism: No preference Special jennie needs: No Seatbelt use: always Do you feel safe at home: Yes Do you feel safe in your relationship?: Yes Exam Const General: cooperative, healthy appearing and no acute distress HENMT Head: normal to inspection Face and sinus: normal facial exam Eyes General: appearance normal, both eyes and all related structures EOM: EOM intact bilaterally Neck Neck: normal visual inspection and No submandibular swelling Lymphatic: no lymphadenopathy noted Chest Chest: normal inspection of the chest and no tenderness Resp Effort & Inspection: normal respiratory effort and able to speak in complete sentences Auscultation: clear to auscultation bilaterally Cardio Rate: regular rate Rhythm: regular rhythm GI Inspection: normal to inspection Palpation: soft, not firm, not rigid and tender (across lower abdomen, worse suprapubic) Auscultation: hypoactive bowel sounds Skin General skin exam: no rashes or lesions noted Neuro General: patient alert, patient awake and patient oriented x3 Cognition: normal cognition Speech: speech normal Motor: muscle tone normal throughout Sensory Exam: no sensory deficits noted Extrem General: normal to inspection, full ROM, capillary refill normal, no calf tenderness bilaterally and no edema Psych Appearance: grossly normal Mental Status: mental status grossly normal Speech and Movement: speech and movement normal Affect: normal affect
[2020-04-15 15:53] LABS: Abs Immature Grans 0.01 k/cumm (0.0-0.09); Absolute Basophil Count 0.01 k/cumm (0.0-0.2); Absolute Lymphocyte Count 1.49 k/cumm (1.2-3.4); Absolute Monocyte Count 0.41 k/cumm (0.11-0.7); Absolute Neutrophil Count 3.32 k/cumm (1.2-6.7); Basophils % 0.2; Eosinophils % 1.9; HCT 39.4 % (36.0-46.0); Immature Grans % 0.2 %; Lymphocytes % 27.9; Mean Corpuscular Hemoglobin 29.3 pg (27.0-33.0); Mean Corpuscular Volume 88.7 fL (80-95); Mean Platelet Volume 9.3 fL (8.0-11.0); Monocytes % 7.7; Neutrophils % 62.1; Platelet Count 316 x1000/uL (130-400); RBC 4.44 m/cumm (4.00-5.20); RBC Distribution Width 13.8 % (11.7-14.6); White Blood Cell Count 5.34 k/cumm (4.4-10.8)
[2020-04-15] MEDS: Normal Saline 1,000 ML 1000 ML IV (15:57)
[2020-04-15] MEDS: Ondansetron 4 MG/2 ML VIAL IVP (15:58)
[2020-04-15 16:02] LABS: Bilirubin Negative (Negative); Blood Small (Negative); Clarity Clear (Clear); Glucose Negative (Negative); Ketones Negative (Negative); Leukocyte Esterase Negative (Negative); Nitrite Negative (Negative); Urobilinogen 0.2 EU/dL (Up TO 0.2)
[2020-04-15 16:05] LABS: ALT 32 U/L (14-59); AST 20 U/L (15-37); Albumin 3.6 g/dL (3.4-5.0); Alkaline Phosphatase 100 U/L (46-116); Anion Gap 7.1 mmol/L (3-11); BUN 7 mg/dL (7-18); Bilirubin, Total 0.3 mg/dL (0.2-1.0); CO2 26.9 mmol/L (21.0-32.0); CREATININE 1.02 mg/dL (0.55-1.02); Calcium 8.8 mg/dL (8.5-10.1); Chloride 103 mmol/L (98-107); Estimated GFR 55.09 (mL/min/1.73m2); Glucose 94 mg/dL (74-106); Lipase 96 U/L (73-393); Sodium 137 mmol/L (136-145); Total Protein 7.1 g/dL (6.4-8.2)
[2020-04-15 16:11] LABS: Bacteria Negative HPF (Negative); C & S Indicated? No; Casts Negative LPF (Negative); Crystals Negative HPF (Negative); Epithelial Cells Negative HPF (Negative); Mucus Negative (Negative); RBC 0-2 HPF (0-2); WBC Negative HPF (0-5)
[2020-04-15 16:57] LABS: INR 2.2 (0.9-1.1); PTT Activated 37.2 sec (21.0-31.4)
--- NOTE | 2020-04-15 17:00 | DI.CT_ITS ---
EXAM: CT ABDOMEN PELVIS W CLINICAL HISTORY: lower abd pain, h/o diverticulitis TECHNIQUE: COMPARISON: CT CT ABDOMEN PELVIS W from 01/11/2020 FINDINGS: CT examination of the abdomen and pelvis was performed with bolus infusion 100 cc 350. Images obtain ed through the lung bases are unremarkable. There is an approximately 4 cm in diameter right lobe posterior segment hepatic cyst. No other focal liver abnormality seen. Spleen is unremarkable. Gallbladder contains probable stones. No biliary dilatation. Normal appearance of pancreas. Kidneys and adrenals are normal, no evidence of urinary tract calcification or obstruction. Abdominal aorta is of normal diameter, major visceral vessels appear intact. No significant abdominal wall hernia. No significant abdominal or pelvic adenopathy. Appendix is normal. Question minimal pericolonic fat increased attenuation in the sigmoid, minimal d iverticulitis could be present, no other significant findings. Uterus is absent or atrophic. Ovaries not visualized. IMPRESSION: Question very slight pericolonic fat stranding in sigmoid region, minimal diverticulitis could be pre sent. Probable cholelithiasis, ultrasound correlation may be obtained if clinically appropriate.
--- NOTE | 2020-04-15 17:17 | DI.VRAD_ITS ---
PROCEDURE INFORMATION: Exam: CT Abdomen And Pelvis With Contrast Exam date and time: 04/15/2020 4:53 PM Age: 59 years old Clinical indication: Abdominal pain; Localized; Patient HX: Lower abdomen pain. HX of diverticulitis TECHNIQUE: Imaging protocol: Computed tomography of the abdomen and pelvis with intravenous contrast. Radiation optimization: All CT scans at this facility use at least one of these dose optimization techniques: automated exposure control; mA and/or kV adjustment per patient size (includes targeted exams where dose is matched to clinical indication); or iterative reconstruction. Contrast material: OMNI-PAQUE 350; Contrast volume: 100 ml; Contrast route: IV; COMPARISON: CT ABDOMEN PELVIS W 01/11/2020 4:36 PM FINDINGS: Lungs: There are slight dependent atelectatic changes at the lung bases. Heart: The visualized portions of the heart and pericardium are unremarkable. Liver: There is a cyst within the right lobe of the liver measuring 3.7 cm. This is not significantly changed when compared to the prior study. Gallbladder and bile ducts: There are small calcified gallstones within the gallbladder. These were present on the earlier study as well. Pancreas: The pancreas is within normal limits. Spleen: The spleen is unremarkable. Adrenals: The adrenal glands are unremarkable. Kidneys and ureters: The kidneys are within normal limits. Stomach and bowel: There are diverticuli of the sigmoid colon. There is slight pericolonic inflammation of the mesenteric fat. This could represent very early sigmoid diverticulitis. Appendix: The appendix is visualized and is within normal limits. Intraperitoneal space: See Stomach and bowel finding. Vasculature: There are arteriosclerotic changes of the aorta. There are multiple phleboliths within the pelvis. Lymph nodes: No enlarged lymph nodes. Bladder: The urinary bladder is unremarkable. Reproductive: The patient is status post hysterectomy. Bones/joints: The patient is status post sternotomy. There are degenerative changes of the thoracic and lumbar spines. Soft tissues: Unremarkable. IMPRESSION: Question very early diverticulitis as described above. Clinical correlation is recommended. Stable liver cyst. Cholelithiasis as above. Status post hysterectomy. Osseous findings as above. Dictated and Authenticated by: Sohail Medina MD. Ordering:VIKKI Watson MD
[2020-04-15] MEDS: ACETAMINOPHEN 1,000 MG/100 ML BTL 400 MG IVPB (17:20)
[2020-04-15] MEDS: Ciprofloxacin 500 MG TAB PO (17:38)
[2020-04-15] MEDS: metroNIDAZOLE 500 MG TAB PO (17:38)
[2020-04-15 17:45] VITALS: BP 128/78; PULSE 67; RESP 18; TEMP 36.8; O2SAT 97
[2020-04-15] MEDS: metroNIDAZOLE 500 MG TAB, 3 TABS/BTL PO (18:08)
[2020-04-15 18:18] VITALS: BP 128/78; PULSE 67; RESP 18; TEMP 36.8; O2SAT 97
== END 2020-04-15 18:16 | disposition home or self-care (01) ==
PROVIDERS: Emergency Provider Physician Assistant; PCP Family Medicine
DX: K57.32 Diverticulitis of large intestine without perforation or abscess without bleeding (principal); R11.0 Nausea; I10 Essential (primary) hypertension; J44.9 Chronic obstructive pulmonary disease, unspecified; F17.210 Nicotine dependence, cigarettes, uncomplicated
CPT/HCPCS: 36415; 80053; 83690; 96361; 96365; 96375; 99285; U0003; 74177; 81003; 81015; 85025; 85610; 85730; 99284; J0131; J2405

== ENCOUNTER 2020-04-17 12:55 | Outpatient (CLI) | payer MEDICARE, MEDICAID, SELFPAY ==
[2020-04-17 13:26] LABS: INR 2.2 (0.9-1.1)
[2020-04-17 13:33] LABS: Prothrombin Time 21.3 sec (9.3-11.0)
== END 2020-04-17 13:15 ==
PROVIDERS: Physician Assistant; PCP Family Medicine; Visit Provider Family Medicine
DX: I26.99 Other pulmonary embolism without acute cor pulmonale (principal); Z79.01 Long term (current) use of anticoagulants
CPT/HCPCS: 36415; 85610

== ENCOUNTER 2020-04-19 10:12 | Emergency (ER) | payer MEDICARE, MEDICAID, SELFPAY ==
[2020-04-19 10:18] VITALS: BP 143/99; PULSE 75; RESP 16; TEMP 36.7; O2SAT 100
--- NOTE | 2020-04-19 10:24 | ED.GENADUL_ITS ---
Discharge Plan Disposition Patient Disposition: HOME Condition: Improving Discharge Details Chief Complaint: Allergic Clinical Impression: Throat fullness, Allergic reaction Primary Care Provider: Joaquin Kenney ED Provider: Shirley Gordon Home Meds and New Rx's Prescriptions: New amoxicillin-pot clavulanate [Augmentin] 875-125 mg tablet 1 tab PO BID 7 Days Qty: 14 RF: 0 prednisone 20 mg tablet See Rx Instructions .ROUTE .COMPLEX Qty: 12 RF: 0 Continued cromolyn [Nasalcrom] 5.2 mg/spray (4 %) spray,non-aerosol 1 spray ESTER TID Qty: 26 RF: 11 lisinopril 20 mg tablet 20 mg PO DAILY Qty: 90 RF: 3 propranolol 10 mg tablet 10 mg PO BID Qty: 180 RF: 3 simvastatin [Zocor] 20 mg tablet 20 mg PO HS Qty: 90 RF: 4 (DME) Easy Touch 3 mL 20 gauge x 1 syringe 1 syringe IM Q3WK Qty: 20 RF: 3 trazodone 100 mg tablet 50 - 100 mg PO HS Qty: 90 RF: 4 warfarin 2.5 mg tablet See Rx Instructions PO DIRECTED Qty: 180 RF: 3 levothyroxine 50 mcg tablet 50 mcg PO DAILY Qty: 90 RF: 4 esomeprazole magnesium 40 mg capsule,delayed release(DR/EC) 40 mg PO DAILY Qty: 90 RF: 3 duloxetine [Cymbalta] 60 mg capsule,delayed release(DR/EC) 60 mg PO DAILY Qty: 90 RF: 4 cyanocobalamin (vitamin B-12) 1,000 mcg/mL solution 1,000 mcg IM Q 3WEEK Qty: 1 RF: 11 albuterol sulfate [Ventolin HFA] 90 mcg/actuation HFA aerosol inhaler 2 puff IH Q4H PRN (Reason: shortness of breath or wheezing) Qty: 8.5 RF: 5 cyclobenzaprine 5 MG tablet 5 mg PO BID PRNQty: 30 RF: 0 letrozole [Femara] 2.5 MG tablet 2.5 mg PO DAILY RF: 0 colestipol 1 gram tablet 2 - 3 gm PO BID Qty: 180 RF: 11 epinephrine 0.3 mg/0.3 mL auto-injector 0.3 mg IM ONCE PRN 1 Days Qty: 2 RF: 3 Discontinued ciprofloxacin HCl [Cipro] 500 mg tablet 500 mg PO BID 9 Days Qty: 18 RF: 0 metronidazole [Flagyl] 500 mg tablet 500 mg PO TID 9 Days Qty: 27 RF: 0 Discharge Instructions Instructions: General Allergic Reaction (ED) Additional Instructions: Drink plenty of fluids and get plenty of rest. Stop taking your Cipro and Flagyl today. Start taking your Augmentin today. Start taking your steroids tomorrow. Be sure you are taking your probiotics and eating yogurt which can help with risk of diarrhea with antibiotics. If you return of sensation of throat fullness in the future, return immediately to emergency department for further evaluation. You may also consider following up with general surgery for further evaluation and consideration for upper endoscopy to evaluate your esophagus for any possible narrowing or stricture. Referrals: Cassie Melton DO [OSTEOPATHIC DOCTOR] - Discharge Data Discharge Date/Time-TO BE ENTERED AT DEPARTURE: 04/19/20 13:23 Discharge Physician: Shirley Gordon Medical Decision Making 1020 -- 59-year-old female recently diagnosed with diverticulitis currently on Cipro and Flagyl since last week presents with sensation of throat fullness and difficulty swallowing since last night. She admits to a similar sensation 1 month ago and had not had medications at that time. She tolerated Cipro and Flagyl with diverticulitis 3 months ago. Vitals within normal limits. She is speaking in full sentences. Normal oropharynx. No drooling, trismus or submandibular swelling. Lungs clear. Patient at length that her symptoms could possibly be due to an allergic reaction versus allergy/postnasal drip, anatomical abnormality such as polyp or esophageal stricture, etc. She recently started 7, will stop these antibiotics and treat with steroids and Benadryl and fluids and reassess. She is on Coumadin and has been having her INR checked due to being on Cipro and Flagyl. We will also check INR today as she is due for this. 1320 -- INR 2.2. Patient observed for 3 hours and states her symptoms are completely resolved. She was able to eat and drink here without any difficulty. She is advised to stop the Cipro and Flagyl and start Augmentin today. Her allergy list notes reaction to Augmentin with diarrhea but she denies any anaphylactic reaction, rash or difficulty breathing with this. She states she is on a medication to help with diarrhea and is also taking probiotics. We will also treat with a short course of steroids. She was also given surgery follow-up information if needed for further evaluation as she has had a similar reaction when not on any new medications. Usual and customary return precautions given prior to discharge. Medical Records Medical records reviewed: Yes I reviewed the patient's medical records. HPI General Mode of arrival: ambulatory . Date/Time Provider Initiated Documentation: 04/19/20 10:15 . Limitations to Documentation: no limitations . Information obtained by: patient . HPI Narrative: Patient is a 59-year-old female who was diagnosed with diverticulitis last week and started on Cipro and Flagyl who presents the ED complaining of sensation of throat tightness and swelling since last night. She states she took a Claritin last night and this morning her symptoms improved. She states after taking her scheduled dose of Cipro Flagyl this morning she feels that the throat tightness is slightly worse. She states she was eventually able to swallow solids and liquids but with some difficulty. She states her abdominal pain with her diverticulitis is improving. She does admit to occasional diarrhea. She states she has taken Augmentin in the past but this has caused diarrhea. She denies any history of anaphylactic shock with Augmentin. She denies any fever, shortness of breath, wheezing, cough or vomiting. Related Data Home Medications Medication Instructions Recorded Confirmed cyclobenzaprine 5 mg PO BID PRN #30 tab-cap 06/28/16 04/19/20 letrozole [Femara] 2.5 mg PO DAILY tab-cap 11/17/16 04/19/20 cromolyn 5.2 mg/spray (4 %) nasal 1 spray ESTER TID #26 ml 11/18/18 04/19/20 spray albuterol sulfate 90 mcg/actuation 2 puff IH Q4H PRN #8.5 gm 11/25/19 04/19/20 aerosol inhaler cyanocobalamin (vitamin B-12) 1,000 mcg IM Q 3WEEK #1 vial 11/25/19 04/19/20 1,000 mcg/mL injection solution duloxetine 60 mg capsule,delayed 60 mg PO DAILY #90 tab-cap 11/25/19 04/19/20 release esomeprazole magnesium 40 mg 40 mg PO DAILY #90 cap 11/25/19 04/19/20 capsule,delayed release levothyroxine 50 mcg tablet 50 mcg PO DAILY #90 tab-cap 11/25/19 04/19/20 lisinopril 20 mg tablet 20 mg PO DAILY #90 tab 11/25/19 04/19/20 propranolol 10 mg tablet 10 mg PO BID #180 tab-cap 11/25/19 04/19/20 simvastatin 20 mg tablet 20 mg PO HS #90 tab-cap 11/25/19 04/19/20 syringe with needle 3 mL 20 gauge #20 syringe 11/25/19 01/14/20 x 1 trazodone 100 mg tablet 50 - 100 mg PO HS #90 tab-cap 11/25/19 04/19/20 warfarin 2.5 mg tablet See Rx Instructions PO DIRECTED 11/25/19 04/19/20 #180 tab-cap colestipol 1 gram tablet 2 - 3 gm PO BID #180 tab 12/16/19 04/19/20 epinephrine 0.3 mg/0.3 mL 0.3 mg IM ONCE PRN 1 Days #2 pen 03/29/20 04/19/20 injection, auto-injector amoxicillin-pot clavulanate 1 tab PO BID 7 Days #14 tab 04/19/20 [Augmentin] prednisone See Rx Instructions .ROUTE 04/19/20 .COMPLEX #12 tab Previous Rx's Medication Instructions Recorded cromolyn 5.2 mg/spray (4 %) nasal 1 spray ESTER TID #26 ml 11/18/18 spray albuterol sulfate 90 mcg/actuation 2 puff IH Q4H PRN #8.5 gm 11/25/19 aerosol inhaler cyanocobalamin (vitamin B-12) 1,000 mcg IM Q 3WEEK #1 vial 11/25/19 1,000 mcg/mL injection solution duloxetine 60 mg capsule,delayed 60 mg PO DAILY #90 tab-cap 11/25/19 release esomeprazole magnesium 40 mg 40 mg PO DAILY #90 cap 11/25/19 capsule,delayed release levothyroxine 50 mcg tablet 50 mcg PO DAILY #90 tab-cap 11/25/19 lisinopril 20 mg tablet 20 mg PO DAILY #90 tab 11/25/19 propranolol 10 mg tablet 10 mg PO BID #180 tab-cap 11/25/19 simvastatin 20 mg tablet 20 mg PO HS #90 tab-cap 11/25/19 syringe with needle 3 mL 20 gauge #20 syringe 11/25/19 x 1 trazodone 100 mg tablet 50 - 100 mg PO HS #90 tab-cap 11/25/19 warfarin 2.5 mg tablet See Rx Instructions PO DIRECTED 11/25/19 #180 tab-cap colestipol 1 gram tablet 2 - 3 gm PO BID #180 tab 12/16/19 epinephrine 0.3 mg/0.3 mL 0.3 mg IM ONCE PRN 1 Days #2 pen 03/29/20 injection, auto-injector amoxicillin-pot clavulanate 1 tab PO BID 7 Days #14 tab 04/19/20 [Augmentin] prednisone See Rx Instructions .ROUTE 04/19/20 .COMPLEX #12 tab Allergies Allergy/AdvReac Type Severity Reaction Status Date / Time ciprofloxacin [From Cipro] Allergy Severe Unverified 04/19/20 11:02 metronidazole [From Flagyl] Allergy Severe Unverified 04/19/20 11:03 nicotine Allergy Severe ITCHING Unverified 04/19/20 10:31 celecoxib Allergy Intermediate FACIAL Unverified 04/19/20 10:31 SWELLING NSAIDS (Non-Steroidal Allergy Intermediate FACIAL Unverified 04/19/20 10:31 Anti-Inflamma SWELLING folic acid Allergy Unknown ITCHING Unverified 04/19/20 10:31 pyridoxine Allergy Unknown ITCHING Unverified 04/19/20 10:31 Sulfa (Sulfonamide Allergy Unknown Unverified 04/19/20 10:31 Antibiotics) tramadol Allergy Unknown Unverified 04/19/20 10:31 amoxicillin trihydrate AdvReac Intermediate Diarrhea Unverified 04/19/20 10:31 [From Augmentin] and stomach pain potassium clavulanate AdvReac Intermediate Diarrhea Unverified 04/19/20 10:31 [From Augmentin] and stomach pain hydrocodone AdvReac Unknown Unverified 04/19/20 10:31 varenicline tartrate AdvReac Unknown Unverified 04/19/20 10:31 [From Chantix] WHITE FACED HORNET Allergy Unknown Uncoded 04/19/20 10:31 General Stated Complaint: Allergic YAMEL: 3 Review of Systems All systems reviewed & are unremarkable except as noted in HPI and below Constitutional Constitutional: Reports as per HPI, Denies chills and Denies fever(s) Eyes Eyes: Denies blurry vision ENT Ears, Nose, Mouth, and Throat: Denies dizziness, Denies odynophagia, Denies sore throat, Denies throat swelling, Denies tongue swelling and Reports other (sensation of throat swelling) Cardiovascular Cardiovascular: Denies chest pain and Denies dyspnea Respiratory Respiratory: Denies cough and Denies dyspnea Gastrointestinal Gastrointestinal: Denies abdominal pain, Denies diarrhea, Denies odynophagia and Denies vomiting Genitourinary Genitourinary: Denies hematuria and Denies dysuria Musculoskeletal Musculoskeletal: Denies back pain and Denies numbness Integumentary/Breasts Skin/Breast: Denies lesions and Denies rash Neurologic Neurologic: Denies dizziness, Denies localized weakness and Denies numbness Allergic/Immunologic Allergic/Immunologic: Denies throat swelling and Denies tongue swelling [facility] Social History (Updated 10/07/19 @ 12:57 by Marichuy Hartman RN) Smoking/Tobacco Use Status: Current every day Tobacco: How many years used: 49 Quit status: not considering quitting Alcohol Intake: former Drug use: Never Substance use type: does not use Details: has not drank in years Household members: none Pets and animals: No Duration: 15-30 minutes/day Frequency: 3-4 times per week Jennie/Adventism: No preference Special jennie needs: No Seatbelt use: always Do you feel safe at home: Yes Do you feel safe in your relationship?: Yes Exam Const General: cooperative and healthy appearing Orientation: alert and awake HENMT Head: normal to inspection Ears: hearing grossly normal bilaterally, external ears normal and TM's normal bilaterally General nose exam: external nose normal Face and sinus: normal facial exam Mouth: oral mucosae normal, no drooling and no trismus Teeth and gingiva: dentition normal Throat: posterior oropharynx normal Eyes General: appearance normal, both eyes and all related structures Eyelids: eyelids normal Pupils: PERRL EOM: EOM intact bilaterally Neck Neck: normal visual inspection, no lymphadenopathy, no meningeal signs, trachea midline, supple and No submandibular swelling Lymphatic: no lymphadenopathy noted Chest Chest: normal inspection of the chest Resp Effort & Inspection: normal respiratory effort and able to speak in complete sentences Auscultation: clear to auscultation bilaterally Cardio Rate: regular rate Rhythm: regular rhythm GI Inspection: normal to inspection Palpation: soft, not firm, no guarding, no hepatosplenomegaly, no masses and nontender Auscultation: normal bowel sounds Skin General skin exam: no rashes or lesions noted Neuro General: patient alert and patient awake Cognition: normal cognition Speech: speech normal Gait: normal gait Motor: muscle tone normal throughout Sensory Exam: no sensory deficits noted Extrem General: normal to inspection, full ROM and capillary refill normal Psych Appearance: grossly normal Mental Status: mental status grossly normal Speech and Movement: speech and movement normal Affect: normal affect Thought Process: normal Course Vital Signs Vital signs: Vital Signs Temperature 98.1 F 04/19/20 10:18 Pulse 75 04/19/20 10:18 Respiratory Rate 16 04/19/20 10:18 Blood Pressure 143/99 H 04/19/20 10:18 Pulse Oximetry 100 04/19/20 10:18 Temperature 98.1 F 04/19/20 10:18 Temperature Source Skin 04/19/20 10:18 Pulse 75 04/19/20 10:18 Respiratory Rate 16 04/19/20 10:18 Respiratory Effort Non-Labored 04/19/20 10:18 Blood Pressure 143/99 H 04/19/20 10:18 Blood Pressure Position Sitting 04/19/20 10:18 Pulse Oximetry 100 04/19/20 10:18 Oxygen Delivery Method Room Air 04/19/20 10:18 Oxygen Flow Rate 0 04/19/20 10:18 Pain Level 0 04/19/20 10:18
[2020-04-19] MEDS: methylPREDNISolone SUCC 125 MG VIAL IVP (10:45)
[2020-04-19] MEDS: Normal Saline 1,000 ML 1000 ML IV (10:45)
[2020-04-19] MEDS: diphenhydrAMINE 50 MG/ML VIAL IVP (10:50)
[2020-04-19 11:24] LABS: INR 2.2 (0.9-1.1); Prothrombin Time 21.5 sec (9.3-11.0)
[2020-04-19 13:17] VITALS: BP 140/90; PULSE 71; RESP 18; TEMP 36.8; O2SAT 99
[2020-04-19 13:24] VITALS: BP 140/90; PULSE 75; RESP 18; TEMP 36.8; O2SAT 99
== END 2020-04-19 13:23 | disposition home or self-care (01) ==
PROVIDERS: Emergency Provider Physician Assistant; PCP Family Medicine
DX: R09.89 Other specified symptoms and signs involving the circulatory and respiratory systems (principal); R13.10 Dysphagia, unspecified; T50.995A Adverse effect of other drugs, medicaments and biological substances, initial encounter
CPT/HCPCS: 36415; 96361; 96374; 96375; 99284; 85610; J1200; J2930

== ENCOUNTER → 2020-04-28 13:50 | Outpatient (BNVA) | payer MEDICARE, MEDICAID, SELFPAY | PROVIDERS: PCP Family Medicine; Referring Provider Family Medicine; Visit Provider Surgery | DX: K21.9 Gastro-esophageal reflux disease without esophagitis (principal); R13.10 Dysphagia, unspecified; Z01.818 Encounter for other preprocedural examination; K57.30 Diverticulosis of large intestine without perforation or abscess without bleeding; Z80.3 Family history of malignant neoplasm of breast; K25.9 Gastric ulcer, unspecified as acute or chronic, without hemorrhage or perforation; B96.81 Helicobacter pylori [H. pylori] as the cause of diseases classified elsewhere; K58.9 Irritable bowel syndrome, unspecified; F17.200 Nicotine dependence, unspecified, uncomplicated; J44.9 Chronic obstructive pulmonary disease, unspecified | CPT/HCPCS: 99202; 99214 ==

== ENCOUNTER 2020-05-17 07:57 | Outpatient (CLI) | payer MEDICARE, MEDICAID, SELFPAY ==
[2020-05-18 02:02] LABS: COVID-19 RT-PCR UVMMC Result Negative (Negative)
== END 2020-05-17 08:17 ==
PROVIDERS: PCP Family Medicine; Visit Provider Surgery
DX: Z01.818 Encounter for other preprocedural examination (principal); Z03.818 Encounter for observation for suspected exposure to other biological agents ruled out
CPT/HCPCS: U0003

== ENCOUNTER 2020-05-17 21:04 | Outpatient (REF) | payer MEDICARE, MEDICAID, SELFPAY ==
[2020-05-17 21:32] LABS: Bilirubin Negative (Negative); Blood Trace-lysed (Negative); Clarity Clear (Clear); Glucose Negative (Negative); Ketones Negative (Negative); Leukocyte Esterase Negative (Negative); Nitrite Negative (Negative); Specific Gravity <= 1.005 (1.005-1.025); Urobilinogen 0.2 EU/dL (Up TO 0.2)
[2020-05-17 21:44] LABS: Bacteria Negative HPF (Negative); C & S Indicated? No; Crystals Negative HPF (Negative); Epithelial Cells Negative HPF (Negative); Mucus Negative (Negative); RBC 0-2 HPF (0-2); WBC Negative HPF (0-5)
== END 2020-05-17 21:24 ==
LOC: LBN 21:04
PROVIDERS: PCP Family Medicine; Visit Provider Family Medicine
DX: R39.89 Other symptoms and signs involving the genitourinary system (principal)
CPT/HCPCS: 81003; 81015

== ENCOUNTER 2020-05-20 12:30 | Day surgery (SDC) | payer MEDICARE, MEDICAID, SELFPAY ==
[2020-05-20 12:40] VITALS: BP 130/90; PULSE 78; RESP 16; TEMP 36.3; O2SAT 97
[2020-05-20] MEDS: Lactated Ringers 1,000 ML 80 ML IV (13:07)
[2020-05-20 13:35] LABS: INR 1.1 (0.9-1.1); Prothrombin Time 10.6 sec (9.3-11.0)
--- NOTE | 2020-05-20 14:45 | STOM_PTH ---
PATIENT: Julia Barron LOC: [facility] U#:[id number] AGE/SX: 59/F ROOM: RE05/20/[address]: Cassie Melton : 1960 BED: DIS: 05/20/2020 SPEC #: [id number] RECD: 05/20/20 17:22 STATUS: YASMEEN [facility] #: [id number] PERRI: 05/20/20 14:[address]: Cassie Melton DEPT: Surgical Specimen RECD BY: Nelida Encinas ENTERED: 05/20/20 17:24 SP TYPE: STOMACH OTHR DR: Joaquin Kenney MD Tissues: 1 - BIOPSY BOWEL 2 - STOMACH BIOPSY 3 - STOMACH BIOPSY 4 - ESOPHAGUS BIOPSY 5 - ESOPHAGUS BIOPSY Procedures: GROSS AND MICRO LEVEL 4 Comments: [id number]
--- NOTE | 2020-05-20 15:00 | W.PM.DSUDISC ---
Discharge Plan Disposition Patient Disposition: HOME Condition: Good Discharge Details Reason For Visit: stomach scope Attending Provider: Cassie Melton Primary Care Provider: Joaquin Kenney Home Meds and New Rx's Prescriptions: New pantoprazole [Protonix] 40 mg tablet,delayed release (DR/EC) 40 mg PO DAILY Qty: 30 RF: 12 Continued cromolyn [Nasalcrom] 5.2 mg/spray (4 %) spray,non-aerosol 1 spray ESTER TID Qty: 26 RF: 11 lisinopril 20 mg tablet 20 mg PO DAILY Qty: 90 RF: 3 propranolol 10 mg tablet 10 mg PO BID Qty: 180 RF: 3 simvastatin [Zocor] 20 mg tablet 20 mg PO HS Qty: 90 RF: 4 (DME) Easy Touch 3 mL 20 gauge x 1 syringe 1 syringe IM Q3WK Qty: 20 RF: 3 trazodone 100 mg tablet 50 - 100 mg PO HS Qty: 90 RF: 4 warfarin 2.5 mg tablet See Rx Instructions PO DIRECTED Qty: 180 RF: 3 levothyroxine 50 mcg tablet 50 mcg PO DAILY Qty: 90 RF: 4 duloxetine [Cymbalta] 60 mg capsule,delayed release(DR/EC) 60 mg PO DAILY Qty: 90 RF: 4 cyanocobalamin (vitamin B-12) 1,000 mcg/mL solution 1,000 mcg IM Q 3WEEK Qty: 1 RF: 11 albuterol sulfate [Ventolin HFA] 90 mcg/actuation HFA aerosol inhaler 2 puff IH Q4H PRN (Reason: shortness of breath or wheezing) Qty: 8.5 RF: 5 cyclobenzaprine 5 MG tablet 5 mg PO BID PRNQty: 30 RF: 0 letrozole [Femara] 2.5 MG tablet 2.5 mg PO DAILY RF: 0 colestipol 1 gram tablet 2 - 3 gm PO BID Qty: 180 RF: 11 epinephrine 0.3 mg/0.3 mL auto-injector 0.3 mg IM ONCE PRN 1 Days Qty: 2 RF: 3 enoxaparin [Lovenox] 100 mg/mL syringe 90 mg SC Q12H Qty: 10 RF: 0 Discontinued esomeprazole magnesium 40 mg capsule,delayed release(DR/EC) 40 mg PO DAILY Qty: 90 RF: 3 Discharge Instructions Additional Instructions: Findings:no hiatal hernia or gastritis. Biopsy- pd Follow up:F/u w/ stoiber in 3-4 wks Start protonix and stop Nexium. Resume lovenox injections in 12 hrs time. reStart coumadin on Sunday. F/u for INR check on Sunday. Please call if you develop: fevers >101.5 Nausea or Vomiting Abdominal pain that is not transient DAY SURGERY UNIT POST COLONOSCOPY INSTRUCTIONS 1. Because there will be medication in your system for the next 24 hours, you may feel a little sleepy. Your coordination will be affected. Therefore: a. Do not drive or operate dangerous equipment for 24 hours. b. Do not drink alcohol beverages for 24 hours (not even beer). c. Plan to go home and rest for the day. 2. Generally there are no restrictions on your activity after a day or so has gone by, but you may feel a bit fatigued for a few days. 3 After you arrive home you may have a light meal and return to a normal diet as you can tolerate it without feeling sick to your stomach. 4. After surgery, you may feel pain or discomfort. This should be only transient, but if it persists please contact your doctor. 5. If there are any questions regarding the findings of your procedure, please feel free to contact your doctor. 6. If you are unable to contact your doctor with a problem, contact the hospital at [phone]. 7. Continue all your regular medications unless directed otherwise. I understand the above instructions and have no questions. Signature of Patient or Responsible Adult Escort Date/Time Name of Responsible Adult Escort Signature of Nurse Date/Time Activity:: No strenuous activity or lifting over 20 pounds x 24 hours Diet:: Small light meals x24 hours Discharge Orders Discharge Orders: Discharge Order (Routine); Ordered 05/20/20 Ordered By: Cassie Melton DS: Diagnosis Discharge Diagnosis (1) Chronic anticoagulation: Status: Acute (2) Small vessel vasculitis: Status: Chronic (3) Pyloric ulcer associated with Helicobacter pylori: Status: Acute (4) Family history of malignant neoplasm of breast: Status: Acute (5) Smoker: Status: Acute (6) Pulmonary embolism: Status: Acute (7) Breast cancer, left: Status: Acute (8) Chronic obstructive lung disease: Status: Acute
--- NOTE | 2020-05-20 15:11 | ENDO_ITS ---
Date of service: 05/20/20 Time of Service: 15:11 Endoscopy Report DATE OF PROCEDURE: 05/20/20 PRE-OP DIAGNOSIS: Hx of Gerd and H pylori. Medcation refractory GERD POST-OP DIAGNOSIS: same PROCEDURE: EGD w/ Bx SURGEON: Cassie Melton ANESTHESIA: MAC ESTIMATED BLOOD LOSS: 1 PATHOLOGY: other COMPLICATIONS: None DISPOSITION: same day PROCEDURE DESCRIPTION: After informed consent was obtained the patient was take to the procedure room and placed in a supine position. Monitors were applied and a time out was done. The patients name, date of , procedure type, allergies to medications and metal in their body was reviewed. A bite block was placed and the patient was sedated. Once sedated and comfortable the gastroscope was advanced through the oropharynx which was grossly normal into the esophagus. The proximal and mid-esophagus were nl. In the distal esophagus there was nl noted. The scope was advanced into the stomach and through the pylorus into the 3rd portion of the duodenum. The duodenum was noted to be nl. Biopsies were done. No significant the scope was retracted back into the stomach and biopsies were done to rule out H. pylori. There were no ulcers/gastritis/masses/polyps. . The scope was retroflexed. The cardia and fundus were noted to be normal. There is not a hiatal hernia noted. The scope was retracted back into the esophagus and biopsies were done of the GE junction to rule out Cheng's. The Z line was regular. . The scope was removed and the patient was woken up and taken back to [facility] in stable condition.
[2020-05-20 15:29] VITALS: BP 133/93; PULSE 73; RESP 18; TEMP 36.3; O2SAT 95
== END 2020-05-20 16:00 | disposition home or self-care (01) ==
PROVIDERS: PCP Family Medicine; Visit Provider Surgery
PROC: 0DJ68ZZ Inspection of Stomach, Via Natural or Artificial Opening Endoscopic (ICD-10-PCS; CPT 43235; principal; 2020-05-20 13:45)
DX: K21.9 Gastro-esophageal reflux disease without esophagitis (principal); R13.10 Dysphagia, unspecified; Z87.19 Personal history of other diseases of the digestive system; K29.80 Duodenitis without bleeding; K31.89 Other diseases of stomach and duodenum; Z86.711 Personal history of pulmonary embolism; Z79.01 Long term (current) use of anticoagulants
CPT/HCPCS: 43239; 36415; 88305; 85610; J2001

== ENCOUNTER 2020-05-25 04:05 | Outpatient (CLI) | payer MEDICARE, MEDICAID, SELFPAY ==
[2020-05-25 14:22] LABS: INR 1.7 (0.9-1.1)
== END 2020-05-25 04:25 ==
PROVIDERS: PCP Family Medicine; Visit Provider Family Medicine
DX: I26.99 Other pulmonary embolism without acute cor pulmonale (principal); Z79.01 Long term (current) use of anticoagulants
CPT/HCPCS: 36415; 85610

== ENCOUNTER 2020-05-27 02:49 | Outpatient (CLI) | payer MEDICARE, MEDICAID, SELFPAY ==
[2020-05-27 12:41] LABS: Prothrombin Time 19.9 sec (9.3-11.0)
== END 2020-05-27 03:09 ==
PROVIDERS: PCP Family Medicine; Visit Provider Family Medicine
DX: I26.99 Other pulmonary embolism without acute cor pulmonale (principal); Z79.01 Long term (current) use of anticoagulants
CPT/HCPCS: 36415; 85610

== ENCOUNTER 2020-06-02 03:51 | Outpatient (CLI) | payer MEDICARE, MEDICAID, SELFPAY ==
[2020-06-02 15:13] LABS: INR 2.1 (0.9-1.1)
== END 2020-06-02 04:11 ==
PROVIDERS: PCP Family Medicine; Visit Provider Family Medicine
DX: Z79.01 Long term (current) use of anticoagulants (principal); I26.99 Other pulmonary embolism without acute cor pulmonale
CPT/HCPCS: 36415; 85610

== ENCOUNTER 2020-06-16 03:55 | Outpatient (CLI) | payer MEDICARE, MEDICAID, SELFPAY ==
[2020-06-16 16:59] LABS: INR 2.3 (0.9-1.1); Prothrombin Time 22.6 sec (9.3-11.0)
== END 2020-06-16 04:15 ==
PROVIDERS: PCP Family Medicine; Visit Provider Family Medicine
DX: K29.60 Other gastritis without bleeding (principal); R13.10 Dysphagia, unspecified; K58.9 Irritable bowel syndrome, unspecified; I26.99 Other pulmonary embolism without acute cor pulmonale; Z79.01 Long term (current) use of anticoagulants
CPT/HCPCS: 36415; 99213; 85610

== ENCOUNTER 2020-07-01 01:20 | Outpatient (CLI) | payer MEDICARE, MEDICAID, SELFPAY ==
[2020-07-01 14:43] LABS: INR 3.1 (0.9-1.1); Prothrombin Time 30.4 sec (9.3-11.0)
== END 2020-07-01 01:40 ==
PROVIDERS: PCP Family Medicine; Visit Provider Family Medicine
DX: I26.99 Other pulmonary embolism without acute cor pulmonale (principal); Z79.01 Long term (current) use of anticoagulants
CPT/HCPCS: 36415; 85610

== ENCOUNTER 2020-07-08 04:33 | Outpatient (CLI) | payer MEDICARE, MEDICAID, SELFPAY ==
[2020-07-08 14:26] LABS: INR 2.5 (0.9-1.1); Prothrombin Time 24.2 sec (9.3-11.0)
== END 2020-07-08 04:53 ==
PROVIDERS: PCP Family Medicine; Visit Provider Family Medicine
DX: I26.99 Other pulmonary embolism without acute cor pulmonale (principal); Z79.01 Long term (current) use of anticoagulants
CPT/HCPCS: 36415; 85610

== ENCOUNTER 2020-07-20 09:30 | Outpatient (CLI) | payer MEDICARE, MEDICAID, SELFPAY ==
[2020-07-20 12:41] LABS: Prothrombin Time 33.6 sec (9.3-11.0)
[2020-07-20 12:46] LABS: INR 3.4 (0.9-1.1)
== END 2020-07-20 09:50 ==
PROVIDERS: PCP Family Medicine; Visit Provider Family Medicine
DX: E03.9 Hypothyroidism, unspecified (principal); I26.99 Other pulmonary embolism without acute cor pulmonale; Z79.01 Long term (current) use of anticoagulants
CPT/HCPCS: 36415; 84443; 85610

== ENCOUNTER 2020-07-29 03:51 | Outpatient (CLI) | payer MEDICARE, MEDICAID, SELFPAY ==
[2020-07-29 15:20] LABS: INR 2.5 (0.9-1.1); Prothrombin Time 24.7 sec (9.3-11.0)
== END 2020-07-29 04:11 ==
PROVIDERS: PCP Family Medicine; Visit Provider Family Medicine
DX: I26.99 Other pulmonary embolism without acute cor pulmonale (principal); Z79.01 Long term (current) use of anticoagulants
CPT/HCPCS: 36415; 85610

== ENCOUNTER 2020-08-05 03:03 | Outpatient (CLI) | payer MEDICARE, MEDICAID, SELFPAY ==
[2020-08-05 13:29] LABS: INR 2.2 (0.9-1.1)
== END 2020-08-05 03:23 ==
PROVIDERS: PCP Family Medicine; Visit Provider Family Medicine
DX: I26.99 Other pulmonary embolism without acute cor pulmonale (principal); Z79.01 Long term (current) use of anticoagulants
CPT/HCPCS: 36415; 85610

== ENCOUNTER 2020-08-19 01:34 | Outpatient (CLI) | payer MEDICARE, MEDICAID, SELFPAY ==
[2020-08-19 13:40] LABS: INR 2.1 (0.9-1.1); Prothrombin Time 21.1 sec (9.3-11.0)
== END 2020-08-19 01:54 ==
PROVIDERS: PCP Family Medicine; Visit Provider Family Medicine
DX: I26.99 Other pulmonary embolism without acute cor pulmonale (principal); Z79.01 Long term (current) use of anticoagulants
CPT/HCPCS: 36415; 85610

== ENCOUNTER 2020-09-07 02:22 | Outpatient (CLI) | payer MEDICARE, MEDICAID, SELFPAY ==
[2020-09-07 15:00] LABS: INR 2.6 (0.9-1.1); Prothrombin Time 25.1 sec (9.3-11.0)
== END 2020-09-07 02:42 ==
PROVIDERS: PCP Family Medicine; Visit Provider Family Medicine
DX: I26.99 Other pulmonary embolism without acute cor pulmonale (principal); Z79.01 Long term (current) use of anticoagulants
CPT/HCPCS: 36415; 85610

== ENCOUNTER 2020-10-12 03:57 | Outpatient (CLI) | payer MEDICARE, MEDICAID, SELFPAY ==
[2020-10-12 14:35] LABS: INR 3.5 (0.9-1.1)
== END 2020-10-12 04:17 ==
PROVIDERS: PCP Family Medicine; Visit Provider Family Medicine
DX: I26.99 Other pulmonary embolism without acute cor pulmonale (principal); Z79.01 Long term (current) use of anticoagulants; R32 Unspecified urinary incontinence; I10 Essential (primary) hypertension; J44.9 Chronic obstructive pulmonary disease, unspecified; Z87.891 Personal history of nicotine dependence
CPT/HCPCS: 36415; 81003; 99204; 99215; 99395; 85610

== ENCOUNTER 2020-10-12 16:38 | Outpatient (REF) | payer MEDICARE, MEDICAID, SELFPAY ==
[2020-10-12 17:41] LABS: Bilirubin Negative (Negative); Blood Negative (Negative); Clarity Clear (Clear); Glucose Negative (Negative); Ketones Negative (Negative); Leukocyte Esterase Negative (Negative); Nitrite Negative (Negative); Urobilinogen 0.2 EU/dL (Up TO 0.2)
== END 2020-10-12 16:58 ==
LOC: LBN 16:38
PROVIDERS: PCP Family Medicine; Visit Provider Nurse Practitioner Gerontology
DX: R32 Unspecified urinary incontinence (principal)
CPT/HCPCS: 81003

== ENCOUNTER 2020-10-21 05:11 | Outpatient (CLI) | payer MEDICARE, MEDICAID, SELFPAY ==
[2020-10-21 14:26] LABS: INR 1.8 (0.9-1.1); Prothrombin Time 17.9 sec (9.3-11.0)
== END 2020-10-21 05:31 ==
PROVIDERS: PCP Family Medicine; Visit Provider Family Medicine
DX: I26.99 Other pulmonary embolism without acute cor pulmonale (principal); Z79.01 Long term (current) use of anticoagulants
CPT/HCPCS: 36415; 85610

== ENCOUNTER 2020-10-29 03:45 | Outpatient (CLI) | payer MEDICARE, MEDICAID, SELFPAY ==
[2020-10-29 15:55] LABS: INR 2.4 (0.9-1.1); Prothrombin Time 23.3 sec (9.3-11.0)
== END 2020-10-29 04:05 ==
PROVIDERS: PCP Family Medicine; Visit Provider Family Medicine
DX: I26.99 Other pulmonary embolism without acute cor pulmonale (principal); Z79.01 Long term (current) use of anticoagulants
CPT/HCPCS: 36415; 85610

== ENCOUNTER 2020-11-09 03:23 | Outpatient (CLI) | payer MEDICARE, MEDICAID, SELFPAY ==
[2020-11-09 14:54] LABS: INR 3.7 (0.9-1.1); Prothrombin Time 35.7 sec (9.3-11.0)
== END 2020-11-09 03:43 ==
PROVIDERS: PCP Family Medicine; Visit Provider Family Medicine
DX: I26.99 Other pulmonary embolism without acute cor pulmonale (principal); Z79.01 Long term (current) use of anticoagulants
CPT/HCPCS: 36415; 85610

== ENCOUNTER 2020-11-11 03:21 | Outpatient (CLI) | payer MEDICARE, MEDICAID, SELFPAY ==
[2020-11-11 16:12] LABS: INR 2.9 (0.9-1.1); Prothrombin Time 28.7 sec (9.3-11.0)
== END 2020-11-11 03:41 ==
PROVIDERS: PCP Family Medicine; Visit Provider Family Medicine
DX: I26.99 Other pulmonary embolism without acute cor pulmonale (principal)
CPT/HCPCS: 36415; 85610

== ENCOUNTER 2020-12-01 04:19 | Outpatient (CLI) | payer MEDICARE, MEDICAID, SELFPAY ==
[2020-12-01 12:51] LABS: INR 3.2 (0.9-1.1); Prothrombin Time 31.5 sec (9.3-11.0)
== END 2020-12-01 04:39 ==
PROVIDERS: PCP Family Medicine; Visit Provider Family Medicine
DX: I26.99 Other pulmonary embolism without acute cor pulmonale (principal); Z79.01 Long term (current) use of anticoagulants
CPT/HCPCS: 36415; 85610

== ENCOUNTER 2020-12-09 03:23 | Outpatient (CLI) | payer MEDICARE, MEDICAID, SELFPAY ==
[2020-12-09 14:26] LABS: INR 2.8 (0.9-1.1)
== END 2020-12-09 03:43 ==
PROVIDERS: PCP Family Medicine; Visit Provider Family Medicine
DX: I26.99 Other pulmonary embolism without acute cor pulmonale (principal); Z79.01 Long term (current) use of anticoagulants
CPT/HCPCS: 36415; 85610

== ENCOUNTER 2020-12-17 01:15 | Outpatient (CLI) | payer MEDICARE, MEDICAID, SELFPAY ==
[2020-12-17 14:43] LABS: INR 2.5 (0.9-1.1); Prothrombin Time 24.4 sec (9.3-11.0)
== END 2020-12-17 01:16 | disposition home or self-care (01) ==
LOC: LBO 01:15
PROVIDERS: PCP Family Medicine; Visit Provider Family Medicine
DX: I26.99 Other pulmonary embolism without acute cor pulmonale (principal); Z79.01 Long term (current) use of anticoagulants
CPT/HCPCS: 36415; 85610

== ENCOUNTER 2021-01-12 04:24 | Outpatient (CLI) | payer MEDICARE, MEDICAID, SELFPAY ==
[2021-01-12 13:48] LABS: INR 2.2 (0.9-1.1); Prothrombin Time 21.8 sec (9.3-11.0)
[2021-01-12 14:44] LABS: Vitamin B12 > 2000 pg/mL (193-986)
== END 2021-01-12 04:25 | disposition home or self-care (01) ==
LOC: LBO 04:25
PROVIDERS: Family Medicine; PCP Family Medicine; Visit Provider Family Medicine
DX: D51.1 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 malabsorption with proteinuria (principal); I26.99 Other pulmonary embolism without acute cor pulmonale; Z79.01 Long term (current) use of anticoagulants
CPT/HCPCS: 36415; 82607; 85610

== ENCOUNTER 2021-03-04 02:59 | Outpatient (CLI) | payer MEDICARE, MEDICAID, SELFPAY ==
[2021-03-04 13:52] LABS: Prothrombin Time 29.2 sec (9.3-11.0)
== END 2021-03-04 03:00 | disposition home or self-care (01) ==
LOC: LBO 02:59
PROVIDERS: PCP Family Medicine; Visit Provider Family Medicine
DX: I26.99 Other pulmonary embolism without acute cor pulmonale (principal); Z79.01 Long term (current) use of anticoagulants
CPT/HCPCS: 36415; 85610

== ENCOUNTER 2021-03-08 16:02 | Outpatient (REF) | payer MEDICARE, MEDICAID, SELFPAY ==
--- NOTE | 2021-03-08 14:00 | PAPFT_PTH ---
PATIENT: Julia Barron LOC: [facility] U#:[id number] AGE/SX: 60/F ROOM: RE03/08/[address]: Malissa Hernandez NP : 1960 BED: DIS: 03/08/2021 SPEC #: [id number] RECD: 03/08/21 17:58 STATUS: YASMEEN [facility] #: [id number] PERRI: 03/08/21 14:[address]: Malissa Hernandez NP DEPT: [facility] Cytology RECD BY: Nelida Encinas ENTERED: 03/08/21 17:58 SP TYPE: PAPFT OTHR DR: Joaquin Kenney MD Tissues: 1 - CX/ENDOCX FOR PAP SMEARS Procedures: PAP THIN PREP/UVM Screening HPV DNA PROBE Comments: [id number]
== END 2021-03-08 16:03 | disposition home or self-care (01) ==
LOC: LBN 16:02
PROVIDERS: PCP Family Medicine; Visit Provider Nurse Practitioner Women's Health
DX: Z12.4 Encounter for screening for malignant neoplasm of cervix (principal); Z87.411 Personal history of vaginal dysplasia; Z87.42 Personal history of other diseases of the female genital tract; Z11.51 Encounter for screening for human papillomavirus (HPV); R87.612 Low grade squamous intraepithelial lesion on cytologic smear of cervix (LGSIL)
CPT/HCPCS: 88142; 87624

== ENCOUNTER 2021-03-18 02:02 | Outpatient (CLI) | payer OTHER, MEDICAID, SELFPAY ==
[2021-03-18 13:53] LABS: INR 2.5 (0.9-1.1)
== END 2021-03-18 02:03 | disposition home or self-care (01) ==
LOC: LBO 02:07
PROVIDERS: PCP Family Medicine; Visit Provider Family Medicine
DX: I26.99 Other pulmonary embolism without acute cor pulmonale (principal); Z79.01 Long term (current) use of anticoagulants
CPT/HCPCS: 36415; 85610

== ENCOUNTER 2021-04-08 01:46 | Outpatient (CLI) | payer OTHER, MEDICAID, SELFPAY ==
[2021-04-08 13:15] LABS: INR 2.7 (0.9-1.1); Prothrombin Time 26.2 sec (9.3-11.0)
== END 2021-04-08 01:47 | disposition home or self-care (01) ==
LOC: LOS 01:46
PROVIDERS: PCP Family Medicine; Visit Provider Family Medicine
DX: I26.99 Other pulmonary embolism without acute cor pulmonale (principal); Z79.01 Long term (current) use of anticoagulants
CPT/HCPCS: 36415; 85610

== ENCOUNTER 2021-04-19 17:10 | Outpatient (REF) | payer OTHER, MEDICAID, SELFPAY ==
--- NOTE | 2021-04-19 16:45 | CER_PTH ---
PATIENT: Julia Barron LOC: [facility] U#:[id number] AGE/SX: 60/F ROOM: RE04/19/[address]: Judi Rivera : 1960 BED: DIS: 04/19/2021 SPEC #: [id number] RECD: 04/20/21 12:50 STATUS: YASMEEN [facility] #: [id number] PERRI: 04/19/21 16:[address]: Judi Rivera DEPT: Surgical Specimen RECD BY: Nelida Encinas ENTERED: 04/20/21 12:51 SP TYPE: CER OTHR DR: Joaquin Kenney MD Tissues: 1 - VAGINAL BIOPSY 2 - CERVICAL BIOPSY Procedures: GROSS AND MICRO LEVEL 4 Comments: [id number]
== END 2021-04-19 17:11 | disposition home or self-care (01) ==
LOC: LBN 17:10
PROVIDERS: PCP Family Medicine; Visit Provider Obstetrics & Gynecology Gynecology
DX: R87.612 Low grade squamous intraepithelial lesion on cytologic smear of cervix (LGSIL) (principal); N88.8 Other specified noninflammatory disorders of cervix uteri; N89.8 Other specified noninflammatory disorders of vagina
CPT/HCPCS: 88305

== ENCOUNTER 2021-05-03 13:06 | Emergency (ER) | payer OTHER, MEDICAID, SELFPAY ==
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
[2021-05-03 13:19] VITALS: BP 162/99; PULSE 60; RESP 18; TEMP 36.5; O2SAT 99
[2021-05-03 13:42] LABS: Abs Immature Grans 0.02 10^3/uL (0.0-0.06); Absolute Basophil Count 0.03 10^3/uL (0.0-0.2); Absolute Eosinophil Count 0.13 10^3/uL (0.0-0.7); Absolute Lymphocyte Count 1.29 10^3/uL (1.2-3.4); Absolute Monocyte Count 0.43 10^3/uL (0.1-0.8); Absolute Neutrophil Count 4.56 10^3/uL (1.2-6.7); Basophils % 0.5; HCT 39.5 % (36.0-46.0); HGB 12.8 g/dL (11.2-15.7); Immature Grans % 0.3; MCH 28.6 pg (27.0-33.0); MCHC 32.4 % (32.0-36.0); MCV 88.4 fL (80-95); MPV 9.2 fL (8.0-11.0); Monocytes % 6.7; Neutrophils % 70.5; Nucleated RBC 0 %; Platelet Count 268 10^3/uL (130-400); RBC 4.47 10^6/uL (3.93-5.22); RDW 13.3 % (11.7-14.6); RDW-SD 42.9 fL; WBC 6.46 10^3/uL (4.4-10.8)
[2021-05-03 13:52] LABS: Bilirubin Negative (Negative); Blood Trace-lysed (Negative); Clarity Clear (Clear); Glucose Negative (Negative); Ketones Negative (Negative); Leukocyte Esterase Negative (Negative); Nitrite Negative (Negative); Urobilinogen 0.2 EU/dL (Up TO 0.2); pH 7.5 (5-8)
[2021-05-03] MEDS: Ondansetron 4 MG/2 ML VIAL IVP (13:52)
[2021-05-03] MEDS: Normal Saline Flush 10 ML SYR IVP ×2 (13:52→14:49)
[2021-05-03] MEDS: ACETAMINOPHEN 1,000 MG/100 ML BTL 400 MG IVPB (13:52)
[2021-05-03] MEDS: Normal Saline 500 ML IV (13:53)
[2021-05-03 13:56] LABS: ALT 30 U/L (14-59); AST 23 U/L (15-37); Albumin 3.8 g/dL (3.4-5.0); Alkaline Phosphatase 90 U/L (46-116); Anion Gap 9.7 mmol/L (3-11); BUN 9 mg/dL (7-18); Bilirubin, Total 0.5 mg/dL (0.2-1.0); CO2 27.3 mmol/L (21.0-32.0); Chloride 105 mmol/L (98-107); Estimated GFR 56.18 (mL/min/1.73m2); Glucose 102 mg/dL (74-106); Lipase 57 U/L (73-393); Sodium 142 mmol/L (136-145); Total Protein 7.6 g/dL (6.4-8.2)
[2021-05-03 14:00] LABS: Bacteria Rare HPF (Negative); C & S Indicated? No; Casts Negative LPF (Negative); Crystals Negative HPF (Negative); Epithelial Cells Negative HPF (Negative); Mucus Negative (Negative); Other Cells Negative (Negative); RBC 0-2 HPF (0-2); WBC Negative HPF (0-5)
[2021-05-03 14:02] LABS: INR 2.8 (0.9-1.1); PTT Activated 37.4 sec (21.0-27.5); Prothrombin Time 27.2 sec (9.3-11.0)
[2021-05-03 14:05] VITALS: BP 152/87; PULSE 56; RESP 16; TEMP 36.8; O2SAT 97
[2021-05-03] MEDS: Omnipaque 350 MG/ML 100 ML BTL IJ (14:47)
[2021-05-03] MEDS: Normal Saline - Diluent 50 ML VIAL IV (14:49)
--- NOTE | 2021-05-03 14:55 | DI.CT_ITS ---
Exam(s) CT ABDOMEN PELVIS W EXAM: CT ABDOMEN PELVIS W INDICATION: lower abdominal pain, r/o diverticulitis. COMPARISON: CT CT ABDOMEN PELVIS W from 04/15/2020 TECHNIQUE: FINDINGS: CT examination of the abdomen and pelvis was performed with a bolus infusion of 100 cc of Omnipaque 3 50. Images obtained through the lung bases show an elongated well-circumscribed noncalcified right basila r pulmonary nodule, mean diameter about 4 millimeters, unchanged from prior CT of April 2020. No othe r focal abnormality identified lung bases. If the patient is a nonsmoker, no follow up recommended. If the patient is a smoker, 12 month follow-up CT would be suggested.. The liver is unremarkable in appearance except for a previously described right lobe hepatic cyst.. Gallbladder shows cholelithiasis but no wall thickening. No biliary dilatation. Pancreas appears normal. Spleen is unremarkable in appearance. Adrenals appear normal. The kidneys are unremarkable with no evidence of hydronephrosis, nephrolithiasis, or renal mass.. Ur inary bladder has a somewhat thickened wall, please correlate clinically regarding the possibility of cystitis.. Abdominal aorta is of normal diameter and no major vascular abnormality is seen. No abdominal wall hernia. No abdominal or pelvic adenopathy. Uterus is atrophic or absent. Appendix is normal. Note is made of pericolonic fat edema in the sigmoid with mild colonic wall thickening. Findings are consistent with uncomplicated diverticulitis. No free intraperitoneal air or abscess formation seen . No free fluid in the pelvis. IMPRESSION: Sigmoid diverticulitis, uncomplicated. No abscess or perforation. Question urinary bladder wall thickening, please correlate clinically regarding the possibility of cy stitis. RADIATION DOSE DELIVERED: 1,207.34mGy.cm Total DLP 1,207.34mGy.cm Total DLP RADIATION OPTIMIZATION: All CT scans at this facility use at least one of these dose optimization te chniques: automated exposure control; mA and/or kV adjustment per patient size (includes targeted exa ms where dose is matched to clinical indication); or iterative reconstruction.
[2021-05-03] MEDS: Amoxicillin 875/Clav. 125 TAB PO (15:50)
--- NOTE | 2021-05-03 15:53 | NUR.NOTE ---
Nursing Note: Referral [facility] for follow up on 1 to 2 weeks for diverticulitis, reevaluation, and colonoscopy. Daniela Dejesus
[2021-05-03 16:00] VITALS: BP 152/96; PULSE 60; RESP 20; TEMP 36.6; O2SAT 100
== END 2021-05-03 16:02 | disposition home or self-care (01) ==
PROVIDERS: Emergency Provider Physician Assistant; PCP Family Medicine
DX: K57.32 Diverticulitis of large intestine without perforation or abscess without bleeding (principal)
CPT/HCPCS: 36415; 80053; 83690; 96361; 96365; 96375; 99285; 74177; 81003; 81015; 85025; 85610; 85730; J0131; J2405; J3490

== ENCOUNTER → 2021-05-13 11:20 | Outpatient (BNVA) | payer OTHER, MEDICAID, SELFPAY | PROVIDERS: PCP Family Medicine; Referring Provider Family Medicine; Visit Provider Physical Therapy Assistant | DX: K57.92 Diverticulitis of intestine, part unspecified, without perforation or abscess without bleeding (principal) | CPT/HCPCS: 99213 ==

== ENCOUNTER 2021-05-24 14:19 | Emergency (ER) | payer OTHER, MEDICAID, SELFPAY ==
[2021-05-24 14:23] VITALS: BP 123/89; PULSE 79; TEMP 36.2; O2SAT 97
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
--- NOTE | 2021-05-24 14:49 | DI.CT_ITS ---
Exam(s) CT ABDOMEN PELVIS W EXAM: CT ABDOMEN PELVIS W CLINICAL HISTORY: Hx of Diverticulitis, Suprapubic abd pain. TECHNIQUE: Imaging Protocol: Axial computed tomography images with coronal and sagittal reformatted images were created and reviewed CONTRAST MATERIAL: Intravenous: Omnipaque 100cc Oral: Yes COMPARISON: CT CT ABDOMEN PELVIS W from 05/03/2021 FINDINGS: VISUALIZED LUNG BASES: No nodules nor pleural effusions evident. Sternotomy wires noted. ABDOMEN: There is no ascites. LIVER: The previously described 4 0.2 x 2.7 cm cyst in the lower right hepatic lobe is again noted. There are no new additional focal hepatic findings. No dilatation of intrahepatic ducts. GALLBLADDER/BILIARY: Cholelithiasis again noted. No evidence of acute cholecystitis. CBD is not dil ated. There are no calculi seen in the CBD. PANCREAS: No evidence of pancreatic mass nor dilatation of the pancreatic duct. SPLEEN: Spleen is not enlarged. No obvious intrasplenic lesions. Splenic and portal veins are paten t. ADRENALS: There are no significant adrenal masses. KIDNEYS:There is a 5 millimeter benign cyst inferior pole right kidney. No solid renal masses. No c alculi nor hydronephrosis.. ABDOMINAL AORTA: Abdominal aorta is not enlarged. LYMPH NODES:There is no retroperitineal nor paraaortic adenopathy. ABDOMINAL WALL: No evidence of significant anterior abdominal wall hernia. GI: There is sigmoid diverticulosis. There is no evidence of obvious acute diverticulitis on today's study. PELVIS: GI: No evidence of appendicitis.No free fluid. LYMPH NODES: There is no intrapelvic nor inguinal adenopathy. REPRODUCTIVE: The uterus is surgically absent. There are no abnormal adnexal masses nor free fluid i n the pelvis. URINARY BLADDER: Partially collapsed. No obvious radiopaque calculi therein. OSSEOUS: No significant osseous lesions. IMPRESSION: 1. Sigmoid diverticulosis. No obvious acute diverticulitis. No evidence of bowel obstruction. No f ree air. No abscess. 2. No evidence of acute appendicitis. 3. Cholelithiasis. No evidence of acute cholecystitis nor dilatation biliary tree. 4. Unchanged solitary cyst in the liver again noted. This has appearance of a benign cysts and not a n abscess in this patient who apparently had recent diverticulitis. Tiny benign cyst in the inferior pole the right kidney incidentally noted RADIATION DOSE DELIVERED: 1,294.92mGy.cm Total DLP DATA REPOSITORY: All CT scans at this facility are submitted to the National Radiology Data Registry (NRDR) Dose Index Registry (DIR) with the [employer] (ACR). RADIATION OPTIMIZATION: All CT scans at this facility use at least one of these dose optimization te chniques: automated exposure control; mA and/or kV adjustment per patient size (includes targeted exa ms where dose is matched to clinical indication); or iterative reconstruction.
[2021-05-24 14:57] LABS: Bilirubin Negative (Negative); Blood Trace-intact (Negative); Clarity Clear (Clear); Glucose Negative (Negative); Ketones Negative (Negative); Leukocyte Esterase Trace (Negative); Nitrite Negative (Negative); Specific Gravity 1.015 (1.005-1.025); pH 6.5 (5-8)
[2021-05-24] MEDS: Omnipaque 350 MG/ML 50 ML BTL PO (15:06)
[2021-05-24] MEDS: Breeza Beverage 473 ML BTL PO (15:07)
[2021-05-24 15:08] LABS: Epithelial Cells Few HPF (Negative); RBC 0-2 HPF (0-2)
[2021-05-24 15:09] LABS: Bacteria Rare HPF (Negative); C & S Indicated? Yes; Casts Negative LPF (Negative); Crystals Negative HPF (Negative); Mucus Negative (Negative)
[2021-05-24 15:29] LABS: Abs Immature Grans 0.03 10^3/uL (0.0-0.06); Absolute Basophil Count 0.03 10^3/uL (0.0-0.2); Absolute Eosinophil Count 0.13 10^3/uL (0.0-0.7); Absolute Lymphocyte Count 1.35 10^3/uL (1.2-3.4); Absolute Monocyte Count 0.47 10^3/uL (0.1-0.8); Absolute Neutrophil Count 3.97 10^3/uL (1.2-6.7); Basophils % 0.5; Eosinophils % 2.2; HGB 12.5 g/dL (11.2-15.7); Immature Grans % 0.5; Lymphocytes % 22.6; MCH 28.2 pg (27.0-33.0); MCHC 32.1 % (32.0-36.0); MPV 9.4 fL (8.0-11.0); Monocytes % 7.9; Neutrophils % 66.3; Nucleated RBC 0 %; Platelet Count 278 10^3/uL (130-400); RBC 4.43 10^6/uL (3.93-5.22); RDW 13.4 % (11.7-14.6); RDW-SD 43.7 fL; WBC 5.98 10^3/uL (4.4-10.8)
[2021-05-24 15:43] LABS: ALT 29 U/L (14-59); AST 16 U/L (15-37); Albumin 3.7 g/dL (3.4-5.0); Alkaline Phosphatase 116 U/L (46-116); Anion Gap 8.4 mmol/L (3-11); BUN 16 mg/dL (7-18); Bilirubin, Total 0.4 mg/dL (0.2-1.0); CO2 27.6 mmol/L (21.0-32.0); Chloride 105 mmol/L (98-107); Estimated GFR 56.18 (mL/min/1.73m2); Glucose 83 mg/dL (74-106); INR 2.1 (0.9-1.1); Lipase 97 U/L (73-393); Magnesium 2.1 mg/dL (1.8-2.4); Potassium 3.8 mmol/L (3.5-5.1); Prothrombin Time 20.9 sec (9.3-11.0); Sodium 141 mmol/L (136-145); Total Protein 7.8 g/dL (6.4-8.2)
[2021-05-24] MEDS: Omnipaque 350 MG/ML 100 ML BTL IJ (16:59)
[2021-05-24] MEDS: Normal Saline - Diluent 50 ML VIAL IV (17:01)
--- NOTE | 2021-05-24 17:43 | DI.VRAD_ITS ---
PROCEDURE INFORMATION: Exam: CT Abdomen And Pelvis With Contrast Exam date and time: 05/24/2021 4:58 PM Age: 60 years old Clinical indication: Other: HX of diverticulitis, suprapubic abd pain TECHNIQUE: Imaging protocol: Computed tomography of the abdomen and pelvis with contrast. Radiation optimization: All CT scans at this facility use at least one of these dose optimization techniques: automated exposure control; mA and/or kV adjustment per patient size (includes targeted exams where dose is matched to clinical indication); or iterative reconstruction. Contrast material: OMNIPAQUE 350; Contrast volume: 100 ml; Contrast route: INTRAVENOUS (IV); Other technique: GI contrast given. COMPARISON: CT ABDOMEN PELVIS W 05/03/2021 2:57 PM FINDINGS: Liver: Right lobe low-density hepatic lesion consistent with cyst. There is mild diffuse associated fatty infiltration, unchanged. Gallbladder and bile ducts: Multiple small gallstones present in the gallbladder. Pancreas: Normal. No ductal dilation. Spleen: Normal. No splenomegaly. Adrenal glands: Normal. No mass. Kidneys and ureters: Normal. No hydronephrosis. Stomach and bowel: Previously noted diverticulitis appears resolved. There is no concerning wall edema or adjacent inflammatory change. New lines status post hysterectomy. Appendix: Appendix well seen, within normal limits. Intraperitoneal space: Unremarkable. No free air. No significant fluid collection. Vasculature: Moderate atherosclerotic change seen in the vasculature. Lymph nodes: Unremarkable. No enlarged lymph nodes. Urinary bladder: The bladder is not well distended which limits evaluation. Reproductive: See Stomach and bowel finding. Bones/joints: Status post median sternotomy. Soft tissues: Unremarkable. Other findings: Respiratory motion noted. IMPRESSION: No definite acute abnormality seen to account for symptoms. Dictated and Authenticated by: Liseth Dodge MD. Ordering:ANA LUISA Goldman MD
[2021-05-24] MEDS: Cephalexin 500 MG CAP PO (18:34)
== END 2021-05-24 18:45 | disposition home or self-care (01) ==
PROVIDERS: Registered Nurse Emergency; Emergency Provider Physician Assistant; PCP Family Medicine
DX: N39.0 Urinary tract infection, site not specified (principal); B96.20 Unspecified Escherichia coli [E. coli] as the cause of diseases classified elsewhere
CPT/HCPCS: 36415; 80053; 83690; 87077; 99285; 74177; 81003; 81015; 83735; 85025; 85610; 87086; 87186; 99284; J3490; Q9967

== ENCOUNTER → 2021-05-27 13:53 | Outpatient (BNVA) | payer OTHER, MEDICAID, SELFPAY | PROVIDERS: PCP Family Medicine; Referring Provider Family Medicine; Visit Provider Physical Therapy Assistant | DX: K57.92 Diverticulitis of intestine, part unspecified, without perforation or abscess without bleeding (principal) | CPT/HCPCS: 99213 ==

== ENCOUNTER 2021-06-06 01:05 | Outpatient (CLI) | payer OTHER, MEDICAID, SELFPAY ==
--- NOTE | 2021-06-06 14:25 | DI.MAMMO_ITS ---
Exam(s) MG MAMMO SCREENING 60 MIN DUR EXAM: MG MAMMO SCREENING 60 MIN DUR CLINICAL HISTORY: breast cancer screening, invasive ductal cacinoma lt breast, C50.912. TECHNIQUE: Bilateral full field digital CC and MLO mammographic images were obtained with 3D tomosyn thesis and utilizing computer aided detection (CAD). COMPARISON: Prior mammograms dating back to 2013, the most recent being May 2020. This patient apparently underwent left breast lumpectomy for malignancy in 2015. She has also had pr ior right breast biopsy. Her sister was apparently also diagnosed breast cancer. FINDINGS: Scarring at the lumpectomy site towards the upper outer quadrant of the left breast is again noted. There are no new findings at the lumpectomy site in the left breast. No new significant findings elsewhere in left breast. No new significant findings in the immediate vicinity of the biopsy marker clip in the opposite-right breast or elsewhere in the right breast No new architectural distortion. IMPRESSION: 1. Stable appearance of the left breast lumpectomy site. 2. No radiographic evidence of malignancy in either breast. BI-RADS Category 2 - Benign Findings Breast Density - Category B - Scattered areas of fibroglandular density Breast density Category C or D implies that the patient has dense breast tissue. Dense breast tissue can make it harder to find cancer on a mammogram. Dense breast tissue is also associated with an incr eased risk of breast cancer. This information about the result of the mammogram report was provided to the patient to raise their awareness. Use this report when you speak with the patient about their risks for breast cancer, which includes their family history. At that time, you may recommend additional screening tests (Ultrasoun d or MRI) as these tests may add significant information. A negative radiographic report should not delay biopsy if a dominant or clinically suspicious mass is present. Up to ten percent of cancers are not identified on mammography. A negative report may reinforce clinical impression. Adenosis and dense breasts may obscure an underlying neoplasm. False positive reports average 6 to 10%. Patient will receive a letter notifying them of these results.
== END 2021-06-06 01:25 ==
PROVIDERS: PCP Family Medicine; Visit Provider Nurse Practitioner Women's Health
DX: Z12.31 Encounter for screening mammogram for malignant neoplasm of breast (principal); C50.912 Malignant neoplasm of unspecified site of left female breast; R92.8 Other abnormal and inconclusive findings on diagnostic imaging of breast; Z90.12 Acquired absence of left breast and nipple
CPT/HCPCS: 77063; 77067

== ENCOUNTER 2021-07-06 03:05 | Outpatient (CLI) | payer OTHER, MEDICAID, SELFPAY ==
[2021-07-06 13:20] LABS: INR 3.4 (0.9-1.1); Prothrombin Time 33.1 sec (9.3-11.0)
[2021-07-06 14:16] LABS: Vitamin B12 365 pg/mL (193-986)
== END 2021-07-06 03:06 | disposition home or self-care (01) ==
LOC: LBO 03:05
PROVIDERS: PCP Family Medicine; Visit Provider Family Medicine
DX: E53.8 Deficiency of other specified B group vitamins (principal); I26.99 Other pulmonary embolism without acute cor pulmonale; Z79.01 Long term (current) use of anticoagulants
CPT/HCPCS: 36415; 82607; 85610

== ENCOUNTER 2021-07-20 03:59 | Outpatient (CLI) | payer OTHER, MEDICAID, SELFPAY ==
[2021-07-20 13:08] LABS: TSH (W/Ref FT4) 2.14 uIU/mL (0.36-3.74)
[2021-07-20 13:09] LABS: INR 2.5 (0.9-1.1); Prothrombin Time 24.7 sec (9.3-11.0)
== END 2021-07-20 04:00 | disposition home or self-care (01) ==
LOC: LOS 03:59
PROVIDERS: PCP Family Medicine; Visit Provider Family Medicine
DX: E03.9 Hypothyroidism, unspecified (principal); I26.99 Other pulmonary embolism without acute cor pulmonale; Z79.01 Long term (current) use of anticoagulants
CPT/HCPCS: 36415; 84443; 85610

== ENCOUNTER → 2021-07-29 13:44 | Outpatient (BNVA) | payer OTHER, MEDICAID, SELFPAY | PROVIDERS: PCP Family Medicine; Referring Provider Family Medicine; Visit Provider Physical Therapy Assistant | DX: Z12.11 Encounter for screening for malignant neoplasm of colon (principal); J44.9 Chronic obstructive pulmonary disease, unspecified; I10 Essential (primary) hypertension ==

== ENCOUNTER 2021-08-12 01:36 | Outpatient (CLI) | payer OTHER, MEDICAID, SELFPAY ==
[2021-08-12 10:47] LABS: Source Nasal/Nares
[2021-08-12 13:36] LABS: COVID-19 PCR Negative (Negative)
== END 2021-08-12 01:37 | disposition home or self-care (01) ==
LOC: LBO 01:36
PROVIDERS: PCP Family Medicine; Visit Provider Surgery
DX: Z20.822 Contact with and (suspected) exposure to COVID-19 (principal); Z01.818 Encounter for other preprocedural examination
CPT/HCPCS: 87635

== ENCOUNTER 2021-08-15 09:14 | Day surgery (SDC) | payer OTHER, MEDICAID, SELFPAY ==
--- NOTE | 2021-08-15 06:36 | W.COLOREPORT ---
Colonoscopy Report Date of procedure: 08/15/21 Pre-op diagnosis general: Colon Cancer screening Post-op diagnosis procedure note: other (diverticulosis and polyps) Procedure: Colonoscopy with polypectomy Surgeon: Kathy Quigley Anesthesia Type: General:No Airway (Erika Britt CRNA) Estimated blood loss (mL): 3 Pathology: other (sigmoid polyps x8, rectal polyps x2) Complications: None Disposition: same day Indications: The patient is here for Colonoscopy pre-op. Her last screening was in 2007 and was unremarkable. She has no family history of colon cancer. She has not had any bowel habit changes. -Discussed colonoscopy bowel prep as well as the procedure. Discussed possible complications of the procedure to include bleeding, pain, perforation, missed small lesion/polyp, sore throat, aspiration and adverse reaction to the medications. Questions were answered to patient?s satisfaction. No guarantees were implied or given. Prep: Miralax/Dulcolax Procedure Start Time: 11:00 Procedure End Time: 11:35 Retraction Time: 24 minutes Findings: multiple small polyps diverticulosis Procedure Description: After informed consent was obtained the patient was taken to the procedure room and placed in a left decubitous position. Monitors were applied and a time out was done. The patients name, date of , procedure, allergies to medications and metal in their body was reviewed. The patient was then sedated. Once sedated and comfortable a rectal exam was done. External exam was normal. Internal exam revealed a normal sphincter tone and no palpable masses. The scope was then introduced and retro-flexed. No internal hemorrhoids, polyps or masses were identified on retro-flexion. The scope was then advanced to the cecum without difficulty. The ileocecal vlave and appendiceal orifice were identified. The prep was adequate. The scope was then slowly retracted over 24 minutes back into the rectum. Polyps were removed with cold forceps in the sigmoid colon x8 and rectum x2. There was moderate descending and sigmoid diverticulosis noted. The scope was removed and the patient was woken up and taken back to Same day surgery in stable condition. The patient tolerated the procedure well and there were no immediate complications. Follow up: The patient should follow up in 5 years unless they develop changes in bowel habits or other new gastrointestinal complaints.
--- NOTE | 2021-08-15 06:37 | W.PM.DSUDISC ---
Discharge Plan Disposition Patient Disposition: HOME Condition: Good Discharge Details Reason For Visit: Colonoscopy Attending Provider: Kathy Quigley Primary Care Provider: Cecy Cotto Home Meds and New Rx's Prescriptions: Continued cromolyn [Nasalcrom] 5.2 mg/spray (4 %) spray,non-aerosol 1 spray ESTER TID Qty: 26 RF: 11 Probiotic 3 billion cell capsule 3,000 mmu cells PO DAILY RF: 0 albuterol sulfate [Ventolin HFA] 90 mcg/actuation HFA aerosol inhaler 2 puff IH Q4H PRN (Reason: shortness of breath or wheezing) Qty: 8.5 RF: 5 letrozole [Femara] 2.5 MG tablet 2.5 mg PO DAILY RF: 0 epinephrine 0.3 mg/0.3 mL auto-injector 0.3 mg IM ONCE PRN 1 Days Qty: 2 RF: 3 propranolol [Inderal LA] 60 mg capsule,extended release 24 hr 60 mg PO Q24H Qty: 90 RF: 11 lisinopril 20 mg tablet 20 mg PO DAILY Qty: 90 RF: 3 (DME) Easy Touch 3 mL 20 gauge x 1 syringe 1 syringe IM Q3WK Qty: 20 RF: 3 levothyroxine 50 mcg tablet 50 mcg PO DAILY Qty: 90 RF: 4 simvastatin [Zocor] 20 mg tablet 20 mg PO HS Qty: 90 RF: 4 trazodone 100 mg tablet 50 - 100 mg PO HS Qty: 90 RF: 4 duloxetine [Cymbalta] 60 mg capsule,delayed release(DR/EC) 60 mg PO DAILY Qty: 90 RF: 4 warfarin 2.5 mg tablet See Rx Instructions mg PO DIRECTED Qty: 180 RF: 3 pantoprazole [Protonix] 40 mg tablet,delayed release (DR/EC) 40 mg PO DAILY Qty: 90 RF: 3 Discontinued bisacodyl [Dulcolax (bisacodyl)] 5 mg tablet,delayed release (DR/EC) 5 mg PO ONCE Qty: 4 RF: 0 polyethylene glycol 3350 17 gram/dose powder 238 g PO ONCE Qty: 238 RF: 0 Discharge Instructions Instructions: Diverticulosis (DC), Colorectal Polyps (DC) Additional Instructions: Findings: multiple small polyps diverticulosis Follow up: 5 years Please call if you develop: fevers >101.5 Nausea or Vomiting Abdominal pain that is not transient Rectal bleeding that is more then a tbsp A hard abdomen and inability to pass gas DAY SURGERY UNIT POST ENDOSCOPY INSTRUCTIONS Instructions for everyone who is given Anesthesia: For your safety, please do the following for the next 24 Hours: a. Do not drive or operate dangerous equipment b. Do not drink alcohol beverages or use any recreational drugs for the first 24 hours or while taking pain medications. The medications in your body may have a reaction that can be dangerous. c. Do not make any important decisions or sign any important papers 1. Generally there are no restrictions on your activity after a day or so has gone by, but you may feel a bit fatigued for a few days. 2. After you arrive home you may have a light meal and return to a normal diet as you can tolerate it without feeling sick to your stomach. 3. After surgery, you may feel pain or discomfort. This should be only transient, but if it persists please contact your doctor. 4. If there are any questions regarding the findings of your procedure, please feel free to contact your doctor. 6. If you are unable to contact your doctor with a problem, contact the hospital at [phone]. 7. Continue all your regular medications unless directed otherwise. I understand the above instructions and have no questions. Signature of Patient or Responsible Adult Escort Date/Time Name of Responsible Adult Escort Signature of Nurse Date/Time Activity:: Activity as Tolerated Diet:: high fiber Discharge Orders Discharge Orders: Discharge Order (Routine); Ordered 08/15/21 Ordered By: Kathy Quigley
[2021-08-15] MEDS: Lactated Ringers 1,000 ML 80 ML IV (09:45)
--- NOTE | 2021-08-15 09:52 | NUR.NOTE ---
0925: Vazquez Arnold CRNa made aware that pt. is reporting light headedness, dizziness, and diaphoresis. LUMBER BEARER ordering blood glucos finger stick and 500 ml bolus of LRNursing Note:
[2021-08-15 10:06] VITALS: BP 122/88; PULSE 92; RESP 18; TEMP 35.8; O2SAT 98
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
[2021-08-15 10:27] VITALS: BMI 35.9
--- NOTE | 2021-08-15 10:41 | NUR.NOTE ---
1040: Jenni Baugh CRNA in with pt. Pt. states she feels better. Vitals: 36.2, 129/88, 18, 68, 97%.Nursing Note:
--- NOTE | 2021-08-15 11:27 | BOWEL_PTH ---
PATIENT: Julia Barron LOC: [facility] U#:[id number] AGE/SX: 60/F ROOM: RE08/15/[address]: Kathy Quigley MD : 1960 BED: DIS: 08/15/2021 SPEC #: [id number] RECD: 08/15/21 12:45 STATUS: YASMEEN RE #: [id number] PERRI: 08/15/21 11:[address]: Kathy Quigley DEPT: Surgical Specimen RECD BY: Nelida Encinas ENTERED: 08/15/21 12:47 SP TYPE: Bowel OTHR DR: Cecy Cotto Tissues: 1 - BIOPSY BOWEL 2 - BIOPSY BOWEL Procedures: GROSS AND MICRO LEVEL 4 Comments: [id number]
[2021-08-15 11:47] VITALS: BP 88/57; PULSE 77; RESP 18; TEMP 36.3; O2SAT 96
[2021-08-15 12:15] VITALS: BP 136/93; PULSE 77; RESP 18; TEMP 36; O2SAT 95
--- NOTE | 2021-08-15 12:23 | W.ANESPOSTOP ---
Postoperative Evaluation Date, Time and Location Date Performed: 08/15/21 Time Performed: 12:23 Patient Location: Day Surgery Unit Vital Signs Most Recent Imported Vital Signs: Most Recent Vital Signs Temp Pulse Resp BP Pulse Ox 36.0 C L 77 18 136/93 H 95 08/15/21 12:15 08/15/21 12:15 08/15/21 12:15 08/15/21 12:15 08/15/21 12:15 Pain Score Most Recent Pain Score: Most Recent Pain Score Pain Level 0 08/15/21 12:15 Assessment Mental Status: Awake (Alert & Oriented to Patient Baseline) Airway and Respiratory Function: Patent airway with normal (patient baseline) respiratory exam Cardiovascular Function: Hemodynamically Stable Hydration Status: Adequately Hydrated Nausea & Vomiting: No Nausea or Vomiting Pain: Pt. Denies Any Pain Peripheral Nerve Block: Patient did not receive a nerve block
== END 2021-08-15 13:00 | disposition home or self-care (01) ==
LOC: SUR 09:15
PROVIDERS: PCP Family Medicine; Visit Provider Surgery
PROC: 0DJD8ZZ Inspection of Lower Intestinal Tract, Via Natural or Artificial Opening Endoscopic (ICD-10-PCS; CPT 45378; principal; 2021-08-15 10:45)
DX: Z12.11 Encounter for screening for malignant neoplasm of colon (principal); K63.5 Polyp of colon; K57.30 Diverticulosis of large intestine without perforation or abscess without bleeding; K62.1 Rectal polyp
CPT/HCPCS: 45380; 88305; J2001

== ENCOUNTER 2021-08-19 03:34 | Outpatient (CLI) | payer OTHER, MEDICAID, SELFPAY ==
[2021-08-19 10:54] LABS: INR 1.1 (0.9-1.1); Prothrombin Time 11.2 sec (9.3-11.0)
== END 2021-08-19 03:35 | disposition home or self-care (01) ==
LOC: LBO 03:34
PROVIDERS: PCP Family Medicine; Visit Provider Family Medicine
DX: I26.99 Other pulmonary embolism without acute cor pulmonale (principal)
CPT/HCPCS: 36415; 85610

== ENCOUNTER 2021-08-31 03:48 | Outpatient (CLI) | payer OTHER, MEDICAID, SELFPAY ==
[2021-08-31 12:38] LABS: INR 2.6 (0.9-1.1); Prothrombin Time 25.4 sec (9.3-11.0)
== END 2021-08-31 03:49 | disposition home or self-care (01) ==
LOC: LBO 03:48
PROVIDERS: PCP Family Medicine; Visit Provider Family Medicine
DX: I26.99 Other pulmonary embolism without acute cor pulmonale (principal)
CPT/HCPCS: 36415; 85610